=== PATIENT | female | born 1980 | race Hispanic/Latino ===

== ENCOUNTER 2024-01-21 21:21 | Emergency (ER) | payer SELFPAY, OTHER ==
--- OUTSIDE RECORDS SUMMARY | 2024-01-21 21:26 | XMS REPORT | Continuity of Care Document ---
Author Name Unknown Address [address] [facility]. [address] [place] [address] [facility] thconnect Address [address] [facility] [address] [place] [address] Care Team Providers Care Visual Basic .Net Developer Name Role Phone PCP, PATIENT DOES NOT HAVE A Primary Care Physic jarek Unavailable YOLA SALEH Attending Clinician Unavailab YOLA Little Attending Clinician Unavailab Yola Little DO Attending Clinician [phone] MICHELINE HERNÁNDEZ Attending Clinician Unavailable Nurse, [facility] Attending Clinician Un available Unknown, Attending Attending Clinician Unavailab Micheline Celeste PA-C Attending Clinician [phone] Mario Hernandez Attending Clinician + FRANCHESKA GO Attending Clinician UnavailYAMINI Regan Attending Clinician Unavailable YODIT TEAGUE Attending Clinician Unavailable Eleanor Francois Attending Clinician + SAMY SALDAÑA Attending Clinician Samy Deutsch Attending Clinician [phone] Unknown, Attending Attending Clinician UnavailMario Ibarra Attending Clinician + MARIO COLBY Attending Clinician Unavailable RADIOLOGY Attending Clinician Unavailable KEVIN CARDENAS III Attending Clinician Unavailbrenna Cardenas III, MD, James C Attending Clinician [phone] Doctor Unassigned, [place] Attending Clinician Nancy marcia Elidia Rios MA Attending Clinician Unavailbrenna e GC_SWJONATHANOM_Ran_G Attending Clinician Unavail able KEVIN COX Attending Clinician Coty Cox MD, Kevin Johnson Attending Clinician [phone] LETICIA SIEGEL Attending Clinician Unavailable BREONNA HUGGINS Attending Clinician Unavailab MELO Parkinson Attending Clinician Unavailable Eben Tong Attending Clinician Unavailab le 2, [facility] Attending Clinician Unavailable Franky DEAN, Valentina Piper Attending Clinician [phone] YAMINI CELESTE Admitting Clinician Unavailable JAYDEN_SWLYNNETTE_Ran_G Admitting Clinician Unavail able Eben Tong Admitting Clinician Unavailab le Payers Payer Name Policy Type Policy Number Effective Date Expirati on Date Source [facility] [id number] 2018 00:00:00 [facility] (MEDICAID REPLACEMENT - HMO) [id number] 2019 00:00:00 Problems Condition Name Condition Details Condition Category Status Onset Date Resolution Date Last Treatment Date Treating Clinician Comments Source Depressive disorder Depressive disorder Disease Active 2022-02 00:00: 00 [facility] spontaneou s labor with delivery, single or unspecifie d fetus spontaneou s labor with delivery, single or unspecifie d fetus Disease Active 11-07 00:00: 00 [facility] History of loop electrosur gical excision procedure (LEEP) History of loop electrosur gical excision procedure (LEEP) Disease Active 10-04 00:00: 00 [facility] History of abnormal cervical Papanicola ou smear History of abnormal cervical Papanicola ou smear Disease Active 10-04 00:00: 00 [facility] Anemia, antepartum , first trimester Anemia, antepartum , first trimester Disease Active 06-21 00:00: 00 [facility] Subchorion ic hemorrhage in first trimester Subchorion ic hemorrhage in first trimester Disease Active 06-21 00:00: 00 [facility] Anemia, antepartum , first trimester Anemia, antepartum , first trimester Disease Active 06-21 00:00: 00 [facility] Threatened Threatened Disease Active 06-19 00:00: 00 [facility] Allergies, Adverse Reactions, Alerts Allergy Name Allergy Type Status Severity Reaction(s) Onset Date Inactive Date Treating Clinician Comments Source MUSHROOM DRUG INGREDI Active Rash 06-20 00:00: 00 [facility] OLIVE EXTRACT DRUG INGREDI Active Rash 06-20 00:00: 00 [facility] ACETAMIN OPHEN-CO DEINE DRUG Active SOB 06-20 00:00: 00 [facility] Mushroom Drug Allergy Active Other - See comments 06-20 00:00: 00 Sore throat [facility] Magnolia Extract Drug Allergy Active Other - See comments 06-20 00:00: 00 Sore throat [facility] CODEINE DRUG INGREDI Active High SOB 10-03 00:00: 00 [facility] Codeine Propensi ty to adverse reaction s to drug Active Shortness of Breath 10-03 00:00: 00 [facility] hydrocod one DA Active SV SHORTNESS OF BREATH 10-01 00:00: 00 [facility] codeine DA Active SV 10-01 00:00: 00 [facility] hydrocod one DA Active SV 10-01 00:00: 00 [facility] codeine DA Active SV SHORTNESS OF BREATH 10-01 00:00: 00 [facility] Social History Social Habit Start Date Stop Date Quantity Comments Source [facility] Alcoholic beverage intake 2023-12-01 00:00:00 2023-12-01 00:00:00 Current non-drinker of alcohol (finding) [facility] History of Social function 2023-07-27 00:00:00 2023-07-27 00:00:00 [facility] Tobacco use and exposure 2023-07-27 00:00:00 2023-07-27 00:00:00 Smokeless tobacco non-user [facility] Alcohol intake 2023-01-02 00:00:00 2023-01-02 00:00:00 Current non-drinker of alcohol (finding) [facility] Exposure to SARS-CoV-2 (event) 2022-02-16 00:00:00 2022-02-26 12:00:00 Yes [facility] Sex assigned at 1980 00:00:00 1980 00:00:00 [facility] Smoking Status Start Date Stop Date Source Never smoked tobacco [facility] Medications Ordered Medication Name Filled Medication Name Start Date Stop Date Current Medication? Ordering Clinician Indication Dosage Frequency Signature (SIG) Comments Components Source metroNIDAZO LE 500 mg tablet 07-27 00:00: 00 Yes [id number] 500mg Take 1 tablet by mouth every 12 (twelve) hours. [facility] copper (PARAGARD T 380A) IUD 1 Intra Uterine Device 07-26 19:00: 00 07-26 18:03 :00 No [id number] 1{IUD} Univer s [facility] ipratropium -albuteroL (DUONEB) 0.5 mg-3 mg(2.5 mg base)/3 mL nebulizer solution 3 mL 2022-02 18:30: 00 01-02 17:49 :00 No [id number] 3mL [facility] albuterol 90 mcg/actuati on inhaler 2022-02 00:00: 00 02-02 05:59 :00 No [id number] 2{puff} Inhale 2 Puffs every 6 (six) hours as needed for Wheezing for up to 30 days. [facility] oseltamivir (TAMIFLU) 75 mg capsule 2022-02 00:00: 00 01-07 05:59 :00 No [id number] 75mg Take 1 capsule by mouth in the morning and 1 capsule in the evening. Do all this for 5 days. [facility] DULoxetine 30 mg capsule 2020-02 00:00: 00 Yes [id number] 30mg Take 1 capsule by mouth daily. [facility] hydrOXYzine 25 mg tablet 2020-02 00:00: 00 Yes [id number] 25mg Take 1 tablet by mouth every 8 (eight) hours as needed for Anxiety. [facility] SERTraline 50 mg tablet 11-18 00:00: 00 12-02 00:00 :00 No [id number] 50mg Take 1 tablet by mouth daily. [facility] Vital Signs Vital Name Observation Time Observation Value Comments S ource Systolic blood pressure 2023-12-01 19:00:00 122 mm[Hg] [facility] Diastolic blood pressure 2023-12-01 19:00:00 73 mm[Hg] [facility] Heart rate 2023-12-01 19:00:00 99 /min [facility] Body temperature 2023-12-01 19:00:00 36.78 Lula [facility] Respiratory rate 2023-12-01 19:00:00 16 /min [facility] Oxygen saturation in Arterial blood by Pulse oximetry 2023-12-01 19:00:00 99 /min [facility] Body height 2023-12-01 16:26:00 160 cm [facility] Body weight 2023-12-01 16:26:00 71.668 kg [facility] BMI 2023-12-01 16:26:00 27.99 kg/m2 [facility] Systolic blood pressure 2023-12-01 16:11:00 113 mm[Hg] [facility] Diastolic blood pressure 2023-12-01 16:11:00 80 mm[Hg] [facility] Heart rate 2023-12-01 16:11:00 99 /min [facility] Body temperature 2023-12-01 16:11:00 36.72 Lula [facility] Respiratory rate 2023-12-01 16:11:00 14 /min [facility] Body height 2023-12-01 16:11:00 160 cm [facility] Body weight 2023-12-01 16:11:00 71.986 kg [facility] BMI 2023-12-01 16:11:00 28.11 kg/m2 [facility] Oxygen saturation in Arterial blood by Pulse oximetry 2023-12-01 16:11:00 99 /min [facility] Systolic blood pressure 2023-09-14 18:49:00 106 mm[Hg] [facility] Diastolic blood pressure 2023-09-14 18:49:00 71 mm[Hg] [facility] Heart rate 2023-09-14 18:49:00 80 /min Unive [facility] Body temperature 2023-09-14 18:49:00 36.5 Lula [facility] Respiratory rate 2023-09-14 18:49:00 17 /min [facility] Body height 2023-09-14 18:49:00 162.6 cm [facility] Body weight 2023-09-14 18:49:00 75.206 kg [facility] BMI 2023-09-14 18:49:00 28.46 kg/m2 [facility] Systolic blood pressure 2023-07-27 17:32:00 108 mm[Hg] [facility] Diastolic blood pressure 2023-07-27 17:32:00 71 mm[Hg] [facility] Heart rate 2023-07-27 17:32:00 85 /min Unive [facility] Body temperature 2023-07-27 17:32:00 36.44 Lula [facility] Respiratory rate 2023-07-27 17:32:00 18 /min [facility] Body height 2023-07-27 17:32:00 162.6 cm [facility] Body weight 2023-07-27 17:32:00 74.021 kg [facility] BMI 2023-07-27 17:32:00 28.01 kg/m2 [facility] Systolic blood pressure 2023-07-23 12:36:00 133 mm[Hg] [facility] Diastolic blood pressure 2023-07-23 12:36:00 82 mm[Hg] [facility] Heart rate 2023-07-23 12:36:00 82 /min Unive [facility] Body temperature 2023-07-23 12:36:00 36.22 Lula [facility] Respiratory rate 2023-07-23 12:36:00 18 /min [facility] Body height 2023-07-23 12:36:00 162.6 cm [facility] Body weight 2023-07-23 12:36:00 73.664 kg [facility] BMI 2023-07-23 12:36:00 27.88 kg/m2 [facility] Systolic blood pressure 2023-01-02 17:19:00 129 mm[Hg] [facility] Diastolic blood pressure 2023-01-02 17:19:00 82 mm[Hg] [facility] Heart rate 2023-01-02 17:19:00 98 /min Unive [facility] Body temperature 2023-01-02 17:19:00 36.94 Lula [facility] Respiratory rate 2023-01-02 17:19:00 18 /min [facility] Body height 2023-01-02 17:19:00 162.6 cm [facility] Body weight 2023-01-02 17:19:00 73.029 kg [facility] BMI 2023-01-02 17:19:00 27.64 kg/m2 [facility] Oxygen saturation in Arterial blood by Pulse oximetry 2023-01-02 17:19:00 99 /min [facility] Systolic blood pressure 2023-01-01 15:38:00 122 mm[Hg] [facility] Diastolic blood pressure 2023-01-01 15:38:00 85 mm[Hg] [facility] Heart rate 2023-01-01 15:38:00 93 /min Unive [facility] Body temperature 2023-01-01 15:38:00 36.78 Lula [facility] Respiratory rate 2023-01-01 15:38:00 19 /min [facility] Body height 2023-01-01 15:38:00 170.2 cm [facility] Body weight 2023-01-01 15:38:00 73.573 kg [facility] BMI 2023-01-01 15:38:00 25.40 kg/m2 [facility] Oxygen saturation in Arterial blood by Pulse oximetry 2023-01-01 15:38:00 98 /min [facility] Systolic blood pressure 2022-02-26 18:06:00 126 mm[Hg] [facility] Diastolic blood pressure 2022-02-26 18:06:00 80 mm[Hg] [facility] Heart rate 2022-02-26 18:06:00 102 /min Unive [facility] Body temperature 2022-02-26 18:06:00 37.22 Lula [facility] Respiratory rate 2022-02-26 18:06:00 16 /min [facility] Body height 2022-02-26 18:06:00 160 cm [facility] Body weight 2022-02-26 18:06:00 74.617 kg [facility] BMI 2022-02-26 18:06:00 29.14 kg/m2 [facility] Oxygen saturation in Arterial blood by Pulse oximetry 2022-02-26 18:06:00 100 /min [facility] Body height 2020-12-02 13:23:00 162.6 cm [facility] Body weight 2020-12-02 13:23:00 67.132 kg [facility] BMI 2020-12-02 13:23:00 25.40 kg/m2 [facility] Systolic blood pressure 2020-12-02 13:23:00 127 mm[Hg] [facility] Diastolic blood pressure 2020-12-02 13:23:00 85 mm[Hg] [facility] Heart rate 2020-12-02 13:23:00 96 /min [facility] Procedures Procedure Date / Time Performed Performing Clinician Source MAGNESIUM 2023-12-01 18:03:00 [facility] 2023-12-01 18:03:00 [facility] THYROID STIMULATING HORMONE 2023-12-01 18:03:00 Yola Saleh [facility] COMP. METABOLIC PANEL ([id number]) 2023-12-01 18:03:00 Yola Saleh [facility] CBC WITH DIFF 2023-12-01 18:03:00 [facility] 2023-12-01 18:03:00 Yola Sale[facility] POCT TEST 2023-07-27 17:33:00 Yamini Celeste [facility] POCT MOLECULAR FLU 2023-01-01 15:40:00 Unknown, Attend parvin [facility] POCT MOLECULAR STREP 2023-01-01 15:37:00 Unknown, Atte froylan [facility] POCT SARS-COV-2 ANTIGEN (BINAX NOW) 2023-01-01 00:00:00 Mario Colby [facility] POCT SARS-COV-2 ANTIGEN (BINAX NOW) 2022-02-26 18:02:00 Kevin Cardenas [facility] ASSIGNMENT OF BENEFITS 2022-02-26 18:00:52 Docto r Unassigned, [place] [facility] [id number] 2019-08-06 00:00:00 [facility] [id number] 2019-08-05 00:00:00 [facility] Encounters Start Date/Time End Date/Time Encounter Type Admission Type Attending [facility] Care Facility Care Department Encounter ID Source 2023-12-01 11:31:00 2023-12-01 14:26:00 Emergency X YOLA SALEH [facility] ERT [id number] [facility] 2023-12-01 11:31:00 2023-12-01 14:26:00 Emergency Yola Saleh [facility] 1.2.840.114 350.1.13.10 4.2.7.2.686 [id number] [facility] 2023-12-01 10:45:00 2023-12-01 11:09:14 Outpatient R MICHELINE HERNÁNDEZ [facility] [id number] [facility] 2023-12-01 10:45:00 2023-12-01 11:09:14 Nurse Visit Nurse, [facility] Unknown, Attending Micheline Hernández Nurse, [facility] 1..840.114 350.1.13.10 4.2.7.2.686 [id number] [facility] 2023-12-01 00:00:00 2023-12-01 11:09:03 Letter (Out) HarritekavinMario [facility] 1..840.114 350.1.13.10 4.2.7.2.686 [id number] [facility] 2023-09-14 13:15:00 2023-09-14 14:05:13 Outpatient R YAMINI CELESTE 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 [id number] [facility] 2023-09-07 14:30:00 2023-09-07 14:30:00 Outpatient R YAMINI CELESTE [facility] [id number] [facility] 2023-08-24 00:00:00 2023-08-24 16:55:45 Telephone Yamini Celeste [facility] [employer] SUB[employer] REPAIRER [facility] 1..840.114 350.1.13.10 4.2.7.2.686 [id number] [facility] 2023-08-19 13:30:00 2023-08-19 14:24:19 Outpatient R YAMINI CELESTE [facility] [id number] [facility] 2023-08-18 00:00:00 2023-08-19 06:46:30 Telephone Yamini Celeste [facility] [employer] SUB[employer] REPAIRER [facility] 1.2.840.114 350.1.13.10 4.2.7.2.686 [id number] [facility] 2023-08-18 00:00:00 2023-08-18 15:29:42 Telephone Yamini Celeste [facility] [employer] SUB[employer] REPAIRER [facility] 1.2.840.114 350.1.13.10 4.2.7.2.686 [id number] [facility] 2023-08-09 07:15:57 2023-08-09 23:59:00 Outpatient R YAMINI CELESTE 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 [id number] [facility] 2023-07-27 12:45:00 2023-07-27 13:06:22 Office Visit Yamini Celeste [facility] [employer] SUB[employer] REPAIRER [facility] 1.2840.114 350.1.13.10 4.2.7.2.686 [id number] [facility] 2023-07-23 07:15:00 2023-07-23 08:19:52 Outpatient R YAMINI CELESTE [facility] [id number] [facility] 2023-07-23 07:15:00 2023-07-23 08:19:52 Office Visit Yamini Celeste [facility] [employer] SUB[employer] REPAIRER [facility] 1.840.114 350.1.13.10 4.2.7.2.686 [id number] [facility] 2023-07-21 00:00:00 2023-07-21 13:43:10 Telephone Eleanor Larson [facility] [employer] REPAIRER [facility] 1.84.114 350.1.13.10 4.2.7.2.686 [id number] [facility] 2023-01-02 10:40:00 2023-01-02 11:45:33 Outpatient R SAMY SALDAÑA [facility] [id number] [facility] 2023-01-02 10:40:00 2023-01-02 11:45:33 Urgent Care Samy Saldaña Unknown, Attending [facility] 1.84.114 350.1.13.10 4.2.7.2.686 [id number] [facility] 2023-01-01 09:20:00 2023-01-01 09:40:00 Urgent Care Mario Colby Unknown, Attending [facility] 1.84.114 350.1.13.10 4.2.7.2.686 [id number] [facility] 2023-01-01 09:20:00 2023-01-01 09:20:00 Outpatient R MARIO COLBY [facility] [id number] [facility] 2022-05-28 09:26:47 2022-05-28 09:26:47 Outpatient [facility] [id number] Eric Olvera 2022-02-26 12:00:00 2022-02-26 12:29:44 Outpatient R KEVIN CARDENAS III [facility] [id number] [facility] 2022-02-26 12:00:00 2022-02-26 12:29:44 Urgent Care Kevin Cardenas Unknown, Attending [facility] 1.840.114 350.1.13.10 4.2.7.2.686 [id number] [facility] 2022-02-26 00:00:00 2022-02-26 00:00:00 Orders Only Doctor Unassigned, [place] [facility] 1.2840.114 350.1.13.10 4.2.7.2.686 [id number] [facility] 2022-02-26 00:00:00 2022-02-26 00:00:00 Letter (Out) Kevin Cardenas [facility] 1.840.114 350.1.13.10 4.2.7.2.686 [id number] [facility] 2021-06-23 00:00:00 2021-06-23 00:00:00 Case Management Elidia Rios 1.84.114 350.1.13.10 4.2.7.2.686 [id number] [facility] 2021-02-28 00:00:00 2021-02-28 00:00:00 Outpatient JAYDEN_ALEX_ Ran_G PRIV PRIV [id number] [facility] 2020-12-16 09:00:00 2020-12-16 09:00:00 Outpatient R KENNY KEVIN [facility] [id number] [facility] 2020-12-16 08:15:00 2020-12-16 08:15:00 Outpatient R KENNY KEVIN [facility] [id number] [facility] 2020-12-02 08:18:16 2020-12-02 08:33:16 Office Visit Kevin Cox [facility] 1.2.840.114 350.1.13.10 4.2.7.2.686 [id number] [facility] 2020-12-02 08:30:00 2020-12-02 08:30:00 Outpatient R BRIGIDLEATHA KEVIN [facility] [id number] [facility] 2020-11-28 00:00:00 2020-11-28 00:00:00 Telephone Kevin Cox [facility] 1.2.840.114 350.1.13.10 4.2.7.2.686 [id number] [facility] 2020-11-18 09:30:00 2020-11-18 09:30:00 Outpatient Saul RAINEYLEATHA KEVIN [facility] [id number] [facility] 2020-11-18 08:18:30 2020-11-18 08:48:30 Office Visit Kevin Cox [facility] 1.2.840.114 350.1.13.10 4.2.7.2.686 [id number] [facility] 2020-09-13 17:20:00 2020-09-13 17:20:00 Outpatient LETICIA ROBLES [facility] [id number] [facility] 2020-06-29 13:00:00 2020-06-29 13:00:00 Outpatient BREONNA LOPEZ [facility] [id number] [facility] 2020-06-29 12:45:00 2020-06-29 12:45:00 Outpatient BREONNA LOPEZ [facility] [id number] [facility] 2020-06-26 11:00:00 2020-06-26 11:00:00 Outpatient MELO JEFFERS [facility] [id number] [facility] 2019-05-25 16:21:00 2019-08-13 07:44:38 Inpatient Eben Tong [facility] [id number] [facility] 2019-06-01 16:22:00 2019-06-01 16:22:00 Outpatient Eben Tong [facility] LABO [id number] 75 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, [facility] [id number] 350.1.13.10 4.2.7.2.686 [id number] 2018-11-07 13:55:10 2018-11-07 14:10:10 Routine Visit Valentina Wilkins [facility] 1.2.840.114 350.1.13.10 4.2.7.2.686 [id number] 2018-11-07 00:00:00 2018-11-07 00:00:00 Orders Only Doctor Unassigned, [place] [facility] 1.2.840.114 350.1.13.10 4.2.7.2.686 [id number] 2018-11-01 00:00:00 2018-11-01 00:00:00 Telephone Valentina Wilkins [facility] 1.2.840.114 350.1.13.10 4.2.7.2.686 [id number] 2009-12-06 00:00:00 2009-12-06 11:46:[address] [facility] [id number] 0 [facility] Results Test Description Test Time Test Comments Results Result Co mments Source [facility] [id number] 17:34:00* Test Item Value Reference Range Interpretation Comme nts POCT PREG (test code = 1605) Negative On board controls acceptable with C Line (test code = 3574) Yes POCT PREG LOT # (test code = 3575) POCT PREG TEST DATE ( test code = 3576) [facility] MOLECULAR [id number] 15:45:32* Test Item Value Reference Range Interpretation Comme nts POCT Molecular Strep (test c ode = 46251-7) Negative Negative Lab Interpretation (test cod e = 87172-3) Normal [facility] SARS-COV-2 ANTIGEN (BINAX NOW)2023-01-01 15:45:00* Test Item Value Reference Range Interpretation Comme nts POCT SARS-COV-2 ANTIGEN (jonh t code = 37822-9) Not Detected Not Detected On board controls acceptable with C Line (test code = 3574) Yes Lab Interpretation (test cod e = 51333-9) Normal [facility] MOLECULAR [id number] 15:44:10* Test Item Value Reference Range Interpretation Comme nts POCT Molecular FluB (test co de = 55435-1) Positive Negative A Lab Interpretation (test cod e = 07890-5) Abnormal [facility] SARS-COV-2 ANTIGEN (BINAX NOW)2022-02-26 18:17:00* Test Item Value Reference Range Interpretation Comme nts POCT SARS-COV-2 ANTIGEN (jonh t code = 02886-6) Positive Not Detected A On board controls acceptable with C Line (test code = 3574) Yes Lab Interpretation (test cod e = 66599-6) [id number] 07:16:00* Test Item Value Reference Range Interpretation Comme nts HEMOGLOBIN (test code = HGB) 9.7 g/dL 10.7-13.9 L HEMATOCRIT (test code = HCT) 31.1 % 32.1-42.1 L AG HEPATITIS B [id number] 21:46:00* Test Item Value Reference Range Interpretation Comme nts AG HEPATITIS B SURFACE (test code = HBSAG) NONREACTIVE NONREACTIVE IS CONSENT FORM SIGNED FOR HIV TESTING? YAB HEPATITIS C [id number] 21:46:00* Test Item Value Reference Range Interpretation Comme nts AB HEPATITIS C (test code = HCVAB) NONREACTIVE NONREACTIVE SIGNAL TO CUTOFF (test code = CUTOFF) <0.02 <0.80 N IS CONSENT FORM SIGNED FOR HIV TESTING? YAB [id number] 21:46:00* Test Item Value Reference Range Interpretation Comme nts AB TREPONEMA (test code = TREPAB) NONREACTIVE NONREACTIVE IS CONSENT FORM SIGNED FOR HIV TESTING? YAB HIV 1 21:46:00* Test Item Value Reference Range Interpretation Comme nts AB HIV 1 2 (test code = LGY41SF) NONREACTIVE NONREACTIVE Done by Siemens [employer] 4th Gen HIV Ag/Ab Combo Screen IS CONSENT FORM SIGNED FOR HIV TESTING? YAG HEPATITIS B [id number] 21:19:00* Test Item Value Reference Range Interpretation Comme nts AG HEPATITIS B SURFACE (test code = HBSAG) NONREACTIVE NONREACTIVE IS CONSENT FORM SIGNED FOR HIV TESTING? YAB HEPATITIS C [id number] 21:19:00* Test Item Value Reference Range Interpretation Comme nts AB HEPATITIS C (test code = HCVAB) NONREACTIVE SIGNAL TO CUTOFF (test code = CUTOFF) <0.80 IS CONSENT FORM SIGNED FOR HIV TESTING? YAB [id number] 21:19:00* Test Item Value Reference Range Interpretation Comme nts AB TREPONEMA (test code = TREPAB) NONREACTIVE NONREACTIVE IS CONSENT FORM SIGNED FOR HIV TESTING? YAB HIV 1 21:19:00* Test Item Value Reference Range Interpretation Comme nts AB HIV 1 2 (test code = QAL70TP) NONREACTIVE IS CONSENT FORM SIGNED FOR HIV TESTING? YCBC W/AUTO [id number] 20:34:00* Test Item Value Reference Range Interpretation Comme nts WHITE BLOOD CELL (test code = WBC) 10.9 K/mm3 6.6-12.1 N RED BLOOD CELL (test code = RBC) 3.79 M/mm3 3.45-5.01 N HEMOGLOBIN (test code = HGB) 10.8 g/dL 10.7-13.9 N HEMATOCRIT (test code = HCT) 32.8 % 32.1-42.1 N MEAN CELL VOLUME (test code = MCV) 87 fL 84.1-94.8 N MEAN CELL HGB (test code = MCH) 28.5 pg 27-35 N MEAN CELL HGB CONCETRATION ( test code = MCHC) 32.9 gm/dL 32.2-34.1 N RED CELL DISTRIBUTION WIDTH (test code = RDW) 18.0 % 12.4-16.5 H PLATELET COUNT (test code = PLT) 226 K/mm3 133-385 N MEAN PLATELET VOLUME (test c ode = MPV) 11.3 fl 9.1-12.7 N NEUTROPHIL % (test code = NT%) 73.8 % 56.5-79.4 N LYMPHOCYTE % (test code = LY%) 13.8 % 14.3-34.3 L MONOCYTE % (test code = MO%) 8.6 % 5.1-10.4 N EOSINOPHIL % (test code = EO%) 3.3 % 0.1-3.0 H BASOPHIL % (test code = BA%) 0.1 % 0.1-1.0 N NEUTROPHIL # (test code = NT#) 8.0 K/mm3 LYMPHOCYTE # (test code = LY#) 1.5 K/mm3 MONOCYTE # (test code = MO#) 0.9 K/mm3 EOSINOPHIL # (test code = EO#) 0.36 K/mm3 BASOPHIL # (test code = BA#) 0.0 K/mm3 RBC MORPHOLOGY REQUIRED (jonh t code = RBCM) NORMAL NORMAL PLATELET MORPHOLOGY REQUIRED (test code = PLTMR) NORMAL NORMAL - US [facility] [id number] 17:02:00Patient Name: GRADY EDWARD Unit No: [id number] EXAMS: C[place]: [id number] [address] [facility] [address], [place] [address] OBSTETRICAL ULTRASOUND REPORT Pat. Name: GRADY EDWARD. No: [id number] Study Date: 07/24/2019 3:24pm , Age: 08 1980, 38 Pregnancies: 4, Para 1021 LMP:12/14/2018 GA by LMP: 31w5d GA by 1st: 31w5d GA by US: 32w4d GA Selected: 31w5d (LMP) AMY: 09/20/2019 Referring MD: EBEN TONG Attorney Lawyer: Sulema Saleh RDMS, RVT CPT4: USPREGFU Admitting MD: EBEN TONG Hist/Ind: SCAN 2 F/U GROWTH POSITION MEASUREMENTS AGE GROWTH EVALUATION Measurement GA Range Srce %for GA Ratios ----- ---- ------- BPD 8.1cm 32w6d (96s7t-63f7z) Hadl BPD 68% FL/BPD 0.79 (0.71 - 0.87) HC 29.5 cm 32w2d (26u4e-80c0h) Hadl HC 58% FL/AC 0.22 (0.20 - 0.24) APD 9.1 cm APD HC/AC 1.01 (0.96 - 1.15) TAD 9.5 cm TAD CI 0.82 (0.70 - 0.86) AC 29.2 cm 33w2d (30w2d- 36w2d) Hadl AC 74% FL 6.4 cm 32w6d (10z4w-78a2g) Hadl FL 67% HL 5.5 cm 32w0d (69v6j-61b8b) Aman GOODSON 54% GA for sonogram 32w4d (13i7x-22n7q) Weight Estimate: based on (BPD,HC,AC,FL) Hadlock Weight: 2107 gm (9610-7764) Hadlo : 4lbs, 10oz Normal: 1756 gm (2900-8767)Brenn Wt% 71% for 31.7 wks Heart Rate: 132 bpm Amniotic Fluid Index: 12.3cm (08.7-24.1) Q1: 2.9cm Q2: 0.0cm Q3: 3.9cm Q4: 5.5cm CLINICAL SUMMARY Type of Gestation: Carreon Intrauterine in vertex presentation. size is appropriate for gestational age. growth: Consistent with normal growth motion and organs seen: somatic activity observed body and limb movements seen Regularcardiac rhythm observed Placental location: Posterior [facility] NAME: GRADY EDWARD Radiology Department PHYS: Eben Cullen MD [address] : 1980 AGE: 38 SEX: F [place], [place] [address] LOC: Diann5078 Pam PHONE #: [phone] EXAM DATE: 07/24/2019 STATUS: ADM IN FAX #: [phone] RAD NO: Page 1 Signed Report (CONTINUED) Patient Name: GRADY EDWARD Unit No: [id number] EXAMS: CPT CODE: [id number] [place] [address] (Continued) Placental maturity : Grade 2 There is no evidence of placenta previa. Amniotic fluid volume is normal. Uterus and adnexa: CERCLAGE SEEN. CERVIX IS OPEN [id number] AP DIMENSION Thank you for allowing us to participate in the care of this patient. Loida Davalos M.D. Electronic Vkkhofmer89/01/2020 05:02pm at 1702 Reportedand signed by: Cat Davalos MD CC: Eben Tong Technologist: Sulema Saleh RDMS, RVT Probe: Trnscrbd D/ (1701) ChikisCER Orig Print D/T: S: 07/24/2019 (1701) [facility] NAME: GRADY EDWARD Radiology Department PHYS: Eben Cullen MD [address]OB: 1980 AGE: 38 SEX: F [place] [address] LOC: F.5078 A PHONE #: [phone] EXAM DATE: 07/24/2019 STATUS: ADM IN FAX #: [phone] RAD NO: Page 2 Signed Report Bia ent Name: VAMSHI EDWARDFA Unit No: [id number] EXAMS: CPT CODE: [id number] [place] [address] (Continued) [facility] NAME: VAMSHI EDWARDFA Radiology Department PHYS: Eben Cullen MD [address] : 1980 AGE: 38 SEX: F [place] [address] : F.5078 A PHONE #: [phone] EXAM DATE: 07/24/2019 STATUS: ADM IN FAX #: [phone] RAD NO: Page 3 Signed Report- US FLW [id number] 14:57:00Patient Name: GRADY EDWARD Unit No: [id number] EXAMS: CPT CODE: [id number] [place] [address] [facility] [address] [place], [place] [address] OBSTETRICAL ULTRASOUND REPORT Pat. Name: GRADY EDWARD Pat. No: [id number] Study Date: 06/21/2019 2:09pm , Age: 08 1980, 38 Pregnancies: 4, Para 1021 LMP: 12/14/2018 GA by LMP: 27w0d GA by US: 27w4d GA Selected: 27w0d (From Known E) AMY: 09/20/2019 Referring MD: EBEN TONG Attorney Lawyer: Berta Mendieta RDMS CPT4: USPREGFU Admitting MD: EBEN TONG Hist/Ind: SCAN#1 F/U GROWTH, SHORT CERVIX MEASUREMENTS AGE GROWTH EVALUATION Measurement GA Range Srce %forGA Ratios ----- ---- ------- BPD 6.8 cm 27w4d (09f1m-02m1m) Hadl BPD 67% FL/BPD 0.78 (0.71 - 0.87) HC 25.9 cm 27w6d (70u1v-19g1u) Hadl HC 68% FL/AC 0.23 (0.20 - 0.24) APD 7.3 cm APD HC/AC 1.12 (1.00 - 1.18) TAD 7.4 cm TAD CI 0.75 (0.70 - 0.86) AC23.1 cm 27w2d (25w1d- 29w4d) Hadl AC 57% FL 5.3 cm 27w6d (01e2l-88a5r) Hadl FL 67% HL 4.7 cm 27w5d (2 4e9y-26k8p) Aman HL 62% GA for sonogram 27w4d (99d7w-56s9y) Weight Estimate: based on (BPD,HC,AC,FL) Hadlock Weight: 1121 gm (957-1285) Hadloc : 2lbs, 7oz Normal: 990 gm (660-1470) Kamron Wt%61% for 27.0 wks Heart Rate: 145 bpm Amniotic Fluid Index: 17.7cm (09.5-22.6) Q1: 5.4cm Q2: 4.5cm Q3: 2.8cm Q4: 5.0cm MATERNAL ANATOMY Ovaries LxHxW (cm) Right 3.8 x 3.5 x 3.1 Vol: 21.6cc Left 2.7 x 1.5 x 1.5 Vol: 3.2cc CLINICAL SUMMARY Type of Gestation: Carreon Intrauterine in transverse head on maternal left presentation. size is appropriate for gestational age. growth: [facility] NAME: EDWARDVAMSHIGRADY Radiology Department PHYS: Eben Cullen MD [address] : 1980 AGE: 38 SEX: F [place], [place] [address] LOC: F.3204 A PHONE #: [phone] EXAM DATE: 06/21/2019 STATUS: ADM IN FAX #: [phone] RAD NO: Page 1 Signed Report (CONTINUED) Patient Name: GRADY EDWARD Unit No: [id number] EXAMS: CPT CODE: [id number] [place] [address] (Continued) Consistent with normal growth motion and organs seen: somatic activity observed body and limb movements seen Regular cardiac rhythm observed Placental location: Posterior Placental maturity : Grade 2 There is no evidence of placenta previa. Amniotic fluid volume is normal. Uterus and adnexa: ?? cerclage stitches at external os/ upper vagina Thank you for allowing us to participate in the care of this patient. Dr Tong notified by text 2:53pm 06/21/2019 Loida Davalos M.D. Electronic Signature 06/21/2019 02:57pm at 1457 Reported and signed by: Cat Davalos MD CC: Eben Tong Technologist: Berta Mendieta RDMS Probe: Trnscrbd D/ (1457) t.SDR.CER Orig Print D/T: S: 06/21/2019 (1457) [facility] NAME: VAMSHI EDWARDFA Radiology Department PHYS: Eben Cullen MD [address] : 1980 AGE: 38 SEX: F [place], [place] [address] LOC: F.3204 A PHONE #: [phone] EXAM DATE: 06/21/2019STATUS: ADM IN FAX #: [phone] RAD NO: Page 2 Signed Report Patient Name: GRADY EDWARD Unit No:[id number] EXAMS: CPT CODE: [id number] [place] [address] (Continued) [facility] NAME: GRADY EDWARD Radiology Department PHYS: Eben Cullen MD [address] : 1980 AGE: 38 SEX: F [place], [place] [address] LOC: Orlando Orozco PHONE #: [phone] EXAM DATE: 06/21/2019 STATUS: ADM IN FAX #: [phone] RAD NO: Page 3 Signed ReportGLUCOSE [id number] 13:55:00* Test Item Value Reference Range Interpretation Comme nts GLUCOSE 3HR (test code = GLU3) 123 mg/dL 65-110 H 3HR GTT GLU3 GLU3HR from 415:CF:I07468J.GLUCOSE [id number] 12:11:00* Test Item Value Reference Range Interpretation Comme nts GLUCOSE 2HR (test code = GLU2) 154 mg/dL 70-140 H 3HR GTT GLU2 GLU2HR from 415:CF:Q32970V.GLUCOSE 1HR POST [id number] 11:09:00* Test Item Value Reference Range Interpretation Comme nts GLUCOSE 1HR POST PRANDIAL (t est code = GLU1) 176 MG/DL 100-200 N 3HR GTT GLU1 GLU1HR from 415:CF:J41102Q.GLUCOSE [id number] 08:45:00* Test Item Value Reference Range Interpretation Comme nts GLUCOSE FASTING (test code = GLUF) 90 mg/dL 65-110 N 3HR GTT GLUF GLUFAST from 6:CF:J00512C.GESTATION SCREEN [id number] 10:53:00* Test Item Value Reference Range Interpretation Comme nts GESTATION SCREEN GLUCOSE (te st code = GLU1S) 155 MG/DL <150 GLU GEST SCRN 1 HR GLU GLU1S from 0414:CF:P23338O.GLUCOSE [id number] 09:37:00* Test Item Value Reference Range Interpretation Comme nts GLUCOSE FASTING (test code = GLUF) 85 mg/dL 65-110 N GLU GEST SCRN GLUFAST GLUFAST from 4:CF:K38477Q.Novel Coronavirus 2019 2019-06-02 18:54:00* Test Item Value Reference Range Interpretation Comme nts Novel Coronavirus 2019 Inhouse (test code = [id number]) Negative Negative Positive resul ts are indicative of the presence psZWHI-ZdO-5 RNA, clinical correlation with patient historyand other diagnostic information is necessary to determinepatient infection status. Positive results do not rule outbacterial infection or co-infection with other viruses. Negative results do not preclude SARS-CoV-2 infection andshould not be used as the sole basis for patient managementdecisions. Negative results must be combined with otherclinical observations, patient history, and epidemiologicalinformation . Detection of SARS-CoV-2 RNA may be affected bysample collection methods, storage conditions, and/or stageof infection. Viral RNA mutations, vaccinations, antiviraltherapeutics, antibiotics, chemotherapeutic orimmunosuppressant drugs have not been evaluated for effectson detection. Results are for the identification of SARS-CoV-2 RNA usingthe [employer] System under the FDA Emergency UseAuthorization. The testing is performed by personneltrained in the procedures for the [employer] moleculardiagnostic SARS-CoV-2 assay in vitro. Testing Criteria: OtherOther: Antepartum patient, Novel Coronavirus 2019 2019-06-02 18:53:00* Test Item Value Reference Range Interpretation Comme [facility] Novel Coronavirus 2019 Inhouse (test code = KQFPA33RI) Negative Negative Positive resul ts are indicative of the presence vyWKTX-KzU-1 RNA, clinical correlation with patient historyand other diagnostic information is necessary to determinepatient infection status. Positive results do not rule outbacterial infection or co-infection with other viruses. Negative results do not preclude SARS-CoV-2 infection andshould not be used as the sole basis for patient managementdecisions. Negative results must be combined with otherclinical observations, patient history, and epidemiologicalinformation . Detection of SARS-CoV-2 RNA may be affected bysample collection methods, storage conditions, and/or stageof infection. Viral RNA mutations, vaccinations, antiviraltherapeutics, antibiotics, chemotherapeutic orimmunosuppressant drugs have not been evaluated for effectson detection. Results are for the identification of SARS-CoV-2 RNA usingthe [employer] M2000 System under the FDA Emergency UseAuthorization. The testing is performed by personneltrained in the procedures for the [employer]ucker [employer]000 moleculardiagnostic SARS-CoV-2 assay in vitro. Testing Criteria: OtherOther: Antepartum patient, AG HEPATITIS B SURFACE 2019-05-25 18:49:00* Test Item Value Reference Range Interpretation Comme nts AG HEPATITIS B SURFACE (test code = HBSAG) NONREACTIVE NONREACTIVE IS CONSENT FORM SIGNED FOR HIV TESTING? YAB HEPATITIS C [id number] 18:49:00* Test Item Value Reference Range Interpretation Comme nts AB HEPATITIS C (test code = HCVAB) NONREACTIVE NONREACTIVE SIGNAL TO CUTOFF (test code = CUTOFF) 0.20 <0.80 N IS CONSENT FORM SIGNED FOR HIV TESTING? YAB [id number] 18:49:00* Test Item Value Reference Range Interpretation Comme nts AB TREPONEMA (test code = TREPAB) NONREACTIVE NONREACTIVE IS CONSENT FORM SIGNED FOR HIV TESTING? YAB HIV 1 18:49:00* Test Item Value Reference Range Interpretation Comme nts AB HIV 1 2 (test code = UWT78MD) NONREACTIVE NONREACTIVE Done by Siemens [employer] 4th Gen HIV Ag/Ab Combo Screen IS CONSENT FORM SIGNED FOR HIV TESTING? YAG HEPATITIS B [id number] 18:38:00* Test Item Value Reference Range Interpretation Comme nts AG HEPATITIS B SURFACE (test code = HBSAG) NONREACTIVE NONREACTIVE IS CONSENT FORM SIGNED FOR HIV TESTING? YAB HEPATITIS C [id number] 18:38:00* Test Item Value Reference Range Interpretation Comme nts AB HEPATITIS C (test code = HCVAB) NONREACTIVE SIGNAL TO CUTOFF (test code = CUTOFF) <0.80 IS CONSENT FORM SIGNED FOR HIV TESTING? YAB [id number] 18:38:00* Test Item Value Reference Range Interpretation Comme nts AB TREPONEMA (test code = TREPAB) NONREACTIVE NONREACTIVE IS CONSENT FORM SIGNED FOR HIV TESTING? YAB HIV 1 18:38:00* Test Item Value Reference Range Interpretation Comme nts AB HIV 1 2 (test code = XWA00QN) NONREACTIVE IS CONSENT FORM SIGNED FOR HIV TESTING? YCBC W/AUTO [id number] 17:37:00* Test Item Value Reference Range Interpretation Comme nts WHITE BLOOD CELL (test code = WBC) 10.6 K/mm3 6.6-12.1 N RED BLOOD CELL (test code = RBC) 3.48 M/mm3 3.45-5.01 N HEMOGLOBIN (test code = HGB) 9.5 g/dL 10.7-13.9 L HEMATOCRIT (test code = HCT) 29.4 % 32.1-42.1 L MEAN CELL VOLUME (test code = MCV) 85 fL 84.1-94.8 N MEAN CELL HGB (test code = MCH) 27.3 pg 27-35 N MEAN CELL HGB CONCETRATION ( test code = MCHC) 32.3 gm/dL 32.2-34.1 N RED CELL DISTRIBUTION WIDTH (test code = RDW) 13.9 % 12.4-16.5 N PLATELET COUNT (test code = PLT) 253 K/mm3 133-385 N MEAN PLATELET VOLUME (test c ode = MPV) 11.1 fl 9.1-12.7 N NEUTROPHIL % (test code = NT%) 83.7 % 56.5-79.4 H LYMPHOCYTE % (test code = LY%) 10.5 % 14.3-34.3 L MONOCYTE % (test code = MO%) 4.9 % 5.1-10.4 L EOSINOPHIL % (test code = EO%) 0.3 % 0.1-3.0 N BASOPHIL % (test code = BA%) 0.1 % 0.1-1.0 N NEUTROPHIL # (test code = NT#) 8.9 K/mm3 LYMPHOCYTE # (test code = LY#) 1.1 K/mm3 MONOCYTE # (test code = MO#) 0.5 K/mm3 EOSINOPHIL # (test code = EO#) 0.03 K/mm3 BASOPHIL # (test code = BA#) 0.0 K/mm3 RBC MORPHOLOGY REQUIRED (jonh t code = RBCM) NORMAL NORMAL PLATELET MORPHOLOGY REQUIRED (test code = PLTMR) NORMAL NORMAL Notes Date/Time Note Provider Source 2023-12-01 14:26:05 Patient given printed and verbal discharge instructions regarding palpitations and numbness. Pt verbalized understanding of instructions, pt awake alert oriented, resp reg unlabored, skin w/d, color appropriate for race, moves all ext well,pt encouraged to follow up with pcp. Advised to seek medical attention for new/prolonged/worsening of symptoms. No adverse reaction to meds given in ER noted upon discharge Awake, alert oriented, resp reg unlabored, skin w/d, pt leaving amb with steady gait, in no apparent distress. Geo Zavaleta RN [facility] 2023-12-01 11:22:59 Patient states when she woke up in bed this morning, she felt a whole left sided numbness. Patient states she felt right sided arm numbness before she woke this morning at 2am. CASTILLO started on the way over her, states its her anxiety. Hx of anxiety, started taking Tirzepatide 2 weeks ago No weakness or numbness assessed in triage Pili Soria RN [facility] 2023-12-01 11:20:00 [facility] Emergency Department Note Patient Name: Grady Edward Date of : 1980 43 year old female Treatment Room: [facility] ED [facility] Primary Care Physician: Kevin Cox Patient Escorted by: Self [9] Mode of Arrival: Personal means [1] EMS Treatment Prior to ED Arrival: Travel and Exposure Screening: Symptoms Does patient have any of these symptoms?: (not recorded) Exposure Screening Has patient had contact with someone with a communicable disease in the last month?: (not recorded) Diseases exposed to:: (not recorded) Is Patient ?: (not recorded) Exposure Date: (not recorded) Chief Complaint: Chief Complaint Patient presents with Other Bilateral intermittent numbness History of Present Illness: The patient presents from home for evaluation for left-sided numbness including her face, arm and leg that started when she woke up around 6:00 in the morning. She reports it lasted several seconds and then went away. She also reports she woke up around 2:00 in the morning and had a right arm numbness that resolved after several seconds. She initially struggled off the symptoms but as the day has progressed she has become more concerned about them. She also reports intermittent palpitations. No chest pain or pressure. No shortness of breath. No cough or congestion. No nausea, vomiting or diarrhea. She has taken the semaglutide injection twice with her last injection this past Wednesday. It is Wednesday today. She takes supplements at home but no other prescription medications. Here for evaluation. Past Medical History/Immunizations: Past Medical History: Diagnosis Date Anemia Anxiety Breast disorder 10/2016 Leakage / Mammogram / COVID-19 09/03/2020 Depression PP depression / never been in counseling / no medication Pap smear abnormality of cervix Urinary incontinence stress incont Allergies: Allergies Allergen Reactions Codeine Shortness of Breath Mushroom Rash and Other - See comments Sore throat Magnolia Extract Rash and Other - See comments Sore throat Past Social History: Tobacco Use Never smoked or used smokeless tobacco. Alcohol Use No. Drug Use No. Sexual Activity Sexually active; Partners: Male; Control/Protection: None. Comments: LSI: 07/19/2023 Past Surgical History: Past Surgical History: Procedure Laterality Date COLPOSCOPY,CERVIX W/ADJ VAG,W/LOOP BX 2006 paps since have been WNL CONIZATION CERVIX,LOOP ELECTRD TONSILLECTOMY as a child / unsure about Adenoids Review of Systems: Review of Systems Constitutional: Negative for chills and fever. Respiratory: Negative for cough and shortness of breath. Cardiovascular: Positive for palpitations. Negative for chest pain. Gastrointestinal: Negative for abdominal pain, nausea and vomiting. Musculoskeletal: Negative for arthralgias, neck pain and neck stiffness. Skin: Negative for wound. Neurological: Positive for numbness. Psychiatric/Behavioral: Negative for agitation. Endocrine: Negative for goiter. Physical Exam: ED Triage Vitals [12/01/23 1126] Weight 71.7 kg (158 lb) Actual or estimated Estimated by patient/family report Height 1.6 m (5' 3") BP (!) 111/96 Pulse 103 Resp 16 Temp 36.7 ?C (98.1 ?F) Temp source Oral SpO2 100 % Measured on Room air Physical Exam Vitals and nursing note reviewed. Constitutional: Appearance: Normal appearance. She is normal weight. HENT: Head: Normocephalic and atraumatic. Mouth/Throat: Mouth: Mucous membranes are dry. Cardiovascular: Rate and Rhythm: Normal rate and regular rhythm. Pulses: Normal pulses. Pulmonary: Effort: Pulmonary effort is normal. No respiratory distress. Breath sounds: No wheezing. Abdominal: General: There is no distension. Palpations: There is no mass. Tenderness: There is no abdominal tenderness. There is no guarding or rebound. Hernia: No hernia is present. Musculoskeletal: General: Normal range of motion. Cervical back: Normal range of motion and neck supple. Skin: General: Skin is warm and dry. Neurological: General: No focal deficit present. Mental Status: She is alert and oriented to person, place, and time. 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 Radiology: No orders to display Lab Results: Lab Results CBC WITH DIFF - Abnormal Result Value Ref Range WBC 9.82 4.30 - 11.10 10*3/?L RBC 4.52 3.93 - 5.25 10*6/?L HGB 12.4 11.6 - 15.0 g/dL HCT 38.2 35.7 - 45.2 % MCV 84.5 80.6 - 95.5 fL MCH 27.4 25.9 - 32.8 pg MCHC 32.5 31.6 - 35.1 g/dL RDW-SD 44.9 39.0 - 49.9 fL RDW-CV 14.5 12.0 - 15.5 % PLT 309 166 - 358 10*3/?L MPV 11.2 9.5 - 12.9 fL NRBC/100 WBC 0.0 0.0 - 10.0 /100 WBCs NRBC x10 3 <0.01 10*3/?L GRAN MAT (NEUT) % 85.4 % IMM GRAN % 0.30 % LYMPH % 9.7 % MONO % 4.3 % EOS % 0.1 % BASO % 0.2 % GRAN MAT x10 3 (ANC) 8.39 (*) 1.88 - 7.09 10*3/uL IMM GRAN x10 3 0.03 0.00 - 0.06 10*3/uL LYMPH x10 3 0.95 (*) 1.32 - 3.29 10*3/uL MONO x10 3 0.42 0.33 - 0.92 10*3/uL EOS x10 3 <0.03 (*) 0.03 - 0.39 10*3/uL BASO x10 3 <0.03 0.01 - 0.07 10*3/uL MAGNESIUM - Normal MAGNESIUM 2.0 1.7 - 2.4 mg/dL THYROID STIMULATING HORMONE - Normal TSH 1.81 0.45 - 4.70 mIU/L FREE T3 - Normal FREE T3 3.86 2.77 - 5.27 pg/mL FREE T4 - Normal FREE T4 1.18 0.78 - 2.20 ng/dL: COMP. METABOLIC PANEL (14122) NA 136 135 - 145 mmol/L K 4.7 3.5 - 5.0 mmol/L CL 102 98 - 108 mmol/L CO2 TOTAL 26 23 - 31 mmol/L AGAP 8 2 - 16 BUN 10 7 - 23 mg/dL GLUCOSE 94 70 - 110 mg/dL CREATININE 0.60 0.50 - 1.04 mg/dL TOTAL BILI 0.4 0.1 - 1.1 mg/dL CALCIUM 9.3 8.6 - 10.6 mg/dL T PROTEIN 8.1 6.3 - 8.2 g/dL ALBUMIN 4.9 3.5 - 5.0 g/dL ALK PHOS 113 34 - 122 U/L ALTv 17 5 - 35 U/L AST(SGOT) 22 13 - 40 U/L eGFR 114.4 mL/min/1.73m2 EKG: If EKG completed, see Procedure Note. Orders and Treatments: Orders Placed This Encounter Procedures CBC WITH DIFF COMP. METABOLIC PANEL (32692) Magnesium Thyroid Stimulating Hormone FREE T3 Free T4 No orders of the defined types were placed in this encounter. First Provider Eval: ED Events Date/Time Event User Comments 12/01/23 1128 Medical Screening Begins YOLA SALEH DO -- 12/01/23 1128 First Provider Evaluation YOLA SALEH DO -- ED COURSE Diagnosis/Impression as of 12/01/23 1416 Palpitations Numbness Procedures: Procedures MDM: Medical Decision Making The patient presents from home for evaluation for left-sided numbness including her face, arm and leg that started when she woke up around 6:00 in the morning. She reports it lasted several seconds and then went away. She also reports she woke up around 2:00 in the morning and had a right arm numbness that resolved after several seconds. She initially struggled off the symptoms but as the day has progressed she has become more concerned about them. She also reports intermittent palpitations. No chest pain or pressure. No shortness of breath. No cough or congestion. No nausea, vomiting or diarrhea. She has taken the semaglutide injection twice with her last injection this past Wednesday. It is Wednesday today. She takes supplements at home but no other prescription medications. Vital signs are stable in the ER. Her speech is clear. No facial symmetry. Handgrip right was left. Muscle strength is 5/5 to upper extremities and lower extremities bilaterally. Steady gait. Her heart is regular rhythm. No concern for stroke based on her current presentation. Will check laboratory studies to eval for any possible electrolyte abnormality or thyroid disorder the may be causing her palpitations. Anticipate discharge home later. 1416 -the patient is doing well here in the ER. Her laboratory studies are unremarkable. She remained stable here in the ER and is okay for discharge home with PCP follow-up. Problems Addressed: Numbness: acute illness or injury Palpitations: acute illness or injury Amount and/or Complexity of Data Reviewed Labs: ordered. Decision-making details documented in ED Course. Risk OTC drugs. Flowsheet Documentation: Scoring Tools: No data recorded Disposition/Condition: ED Disposition ED Disposition Disch - Home Condition Stable Comment -- Discharge Medications: Patient's Medications START taking these medications No medications on file CONTINUE taking these medications which have NOT CHANGED DULOXETINE 30 MG CAPSULE Take 1 capsule by mouth daily. HYDROXYZINE 25 MG TABLET Take 1 tablet by mouth every 8 (eight) hours as needed for Anxiety. METRONIDAZOLE 500 MG TABLET Take 1 tablet by mouth every 12 (twelve) hours. START taking Modified Medications as Prescribed No medications on file STOP taking these medications No medications on file Follow-up: Electronically signed by: Yola Saleh DO 12/01/23 1416 [facility] 2023-08-24 16:53:32 Called pt, notified of providers recommendations. Verbalized understanding. Alexia Feliz RN 08/24/23 4:55 PM Alexia Feliz RN [facility] 2023-08-24 16:48:44 Please make pt aware that radiology was able to compare her mammogram to 2022. Current mammogram is negative for malignancy. Repeat mammogram in one year. SAKSHI Avilez 08/24/2023 4:51 PM [facility] 2023-08-18 16:54:26 The patient is scheduled for BCCS screening on 08/18/23 and is aware of proofs to bring. Rebeca Esquivel [facility] 2023-08-18 16:41:57 Called pt, discussed results and poc. Routed to PSS for bccs screening. Alexia Feliz RN 08/18/23 4:43 PM Alexia Feliz RN [facility] 2023-08-18 15:34:13 Please make pt aware that there was an area in the L breast that was slightly different from the R. Radiology will attempt to obtain her previous mammogram for comparison. If they are unable to obtain previous mammogram, they recommend follow up with with a diagnostic mammo with ultrasound if necessary. Orders have been done. SAKSHI Avilez 08/18/2023 3:44 PM [facility] 2023-08-18 15:26:12 L diagnostic mammogram and ultrasound ordered per radiology recommendations. SAKSHI Avilez 08/18/2023 3:29 PM [facility] 2023-07-28 15:31:59 Patient informed of results and new orders, verbalized understanding. Haley Escobedo [employer] [facility] 2023-07-28 15:19:11 Please make pt aware that vag probe results have returned. Pt is positive for BV. Rx for metronidazole 500mg BID x 7 days sent to pharmacy. [facility] 2023-07-21 13:35:59 Pt stated she accidentally pulled out her Paragard IUD and is needing another form of control. Stated she has HTW, informed patient pss can call to schedule WWE and can discuss control options. Advised to stay abstinent until appt, verbalized understanding. Haley Escobedo [employer] [facility] 2023-07-21 13:26:03 Grady Edward is a 42 year old female Patient is interesting in having tubal ligation. Please call patient. Rolanda Esquivel [facility] 2019-08-30 07:29:00 [id number] [facility] [place] [id number] PATIENT NAME: GRADY EDWARD ADMIT DATE: 05/25/19 ACCOUNT NO: [id number] ROOM NO: [facility] AGE: 38 SEX: F ADMITTING PHYSICIAN: Eben Tong MD ATTENDING PHYSICIAN: Eben Tong MD ADMISSION DATE: 05/25/2019 DISCHARGE DATE: 08/08/2019 ADMISSION DIAGNOSES: 1. A 23-week . 2. Incompetent cervix. 3. Short cervix. 4. History of . 5. Cerclage in place. 6. Advanced maternal age. PROCEDURE PERFORMED: Spontaneous vaginal delivery. DISCHARGE MEDICATIONS: Include vitamin and Motrin. DISPOSITION: The patient discharged home in good condition. SUMMARY OF HOSPITAL COURSE: The patient was admitted at 23 weeks and 2 days' gestation from the office following an ultrasound, which showed an extremely short cervix less than 5 mm despite cerclage in place and with previous history of incompetent cervix and . SUMMARY OF HOSPITAL COURSE: The patient admitted at 23 weeks and 1 day gestation from the office where an ultrasound showed extremely short cervix less than 5-mm with funneling despite cerclage in place. She has a history of and had been taking [place] progesterone injections. However, given these new findings of extremely short cervix with dilation, decision was made to admit the patient for an inpatient observation and monitoring. She was started on magnesium and course of betamethasone at the time of admission, which was continued 24 hours. Neonatology was consulted. She remained relatively stable upon admission. She reported good movement without contractions, leaking of fluid or bleeding. heart rate tracing remained reactive and reassuring. She was continued on her weekly [place] injections. She had no significant complaints until 08/02/2019, when she noted having some vaginal spotting, pinkish discharge with wiping as well as started to feel some minor tightening contractions, this was continued on August 02, when she had more discharge with wiping and more frequent abdominal cramping. She was given terbutaline IM as needed for contractions, which helped with the contraction pain; however, still feeling some contractions; on August 04, when she began having more significant bleeding and on exam was noted to be at approximately 2 to 3 cm with the cerclage tearing through the cervix and bulging bag of water. At this point, she was 33 weeks' gestation and signs of early labor, not responsive to tocolytics, decision was made to proceed with removal of cerclage, PATIENT NAME: GRADY EDWARD a rescue dose of steroids was started and magnesium was restarted; however, she continued to have regular contractions and decision was made to remove the cerclage. Cerclage was easily removed and following removal of cerclage was found to be 6 cm. She then progressed in labor to spontaneous vaginal delivery. , the patient did well, she remained afebrile and stable vital signs and by day #2, she was meeting all her goals. She was discharged home in good condition. Discharge exam was benign. She was scheduled for followup in the office in 6 weeks for check. Dictated By: Eben Tong MD WT: DS:F.FREDERIC/KASANDRA/NTS Conf#: [id number]/DID#: [id number] Authenticated by Eben Tong MD On 09/25/2019 12:52:59 PM at 1253 PATIENT NAME: GRADY EDWARD [facility] 2019-08-08 12:08:00 [facility] ([facility]) OB Postpart Progr Note REPORT#:[id number] REPORT STATUS: Signed DATE:08/08/19 TIME: 1208 PATIENT: GRADY EDWARD UNIT #: [id number] ROOM/BED: [address] : [address] AGE: 38 SEX: F ATTEND: Eben Tong MD ADM AUTHOR: Eben Tong MD * ALL edits or amendments must be made on the electronic/computer document * Subjective Subjective Status/Day: post (d2) Patient reports: Patient reports: Yes no complaints, Yes pain management effective, Yes tolerating po well Objective Nursing Documentation Review Nursing Data: The data set between the solid lines has been imported from nursing documentation. Any exceptions have been noted below under Provider comments. Feeding preference: Provider comments on imported nursing data: [] General VS: Vital Signs: Date Time Temp Pulse Resp B/P B/P Pulse O2 O2 Flow FiO2 Mean Ox Delivery Rate 08/07 0842 98.7 80 20 101/66 08/07 0040 78.0 08/08 39 99.3 79 18 Patient Weight Weight (lb): 223 Weight (oz): Weight (kg): 101.151 Physical Exam Neuro: Exam: alert, oriented x3 Abdomen: soft, no abnormal tenderness Uterus: firm, non-tender Fundus: firm, below the umbilicus, non-tender Lacerations: Perineal laceration(s): None High vaginal laceration: no Diagnosis, Assessment Plan Diagnosis, Assessment Plan Assessment: nml progress Plan: routine care, discharge today at 1209 RPT #:[id number] END OF REPORT [facility] 2019-08-06 06:36:00 [facility] ([facility]) OB Delivery Note REPORT#:[id number] REPORT STATUS: Signed DATE:08/06/19 TIME: 635 PATIENT: GRADY EDWARD UNIT #: [id number] ROOM/BED: [address] : [address] AGE: 38 SEX: F ATTEND: Eben Tong MD ADM AUTHOR: Eben Tong MD * ALL edits or amendments must be made on the electronic/computer document * OB Delivery Nursing Documentation Review Nursing data: The data set between the solid lines has been imported from nursing documentation. Any exceptions have been noted below under Provider comments. _ ROM date: ROM time: Membranes rupture method: Amniotic fluid color: Amniotic fluid amount: EGA (weeks/days): 33.2 EGA at admit (weeks): EGA at delivery (weeks): 33 Steroids prior to arrival: Antibiotic prophylaxis given: evaluation at delivery: Delivery date infant A: Delivery time infant A: Birthweight (gm) infant A: Weight (lb) infant A: Weight (oz) A: Gender infant A: 1 minute infant A: 5 minutes A: 10 minutes infant A: Cord pH obtained A: Vacuum time infant A: Vacuum # pulls A: Vacuum # popoffs A: QBL at delivery: __ Provider comments on imported nursing data: [] Pre-delivery GBS status: GBS status: unknown Prophylaxis administered: ampicillin Meds prior to delivery: betamethasone, magnesium sulfate evaluation at delivery: team Admission EGA (wks/days): 23.1 EGA at delivery (wks/days): 33.4 Baby A Information Baby A information Delivery date: 08/06/19 Delivery time: 622 status: live born Wt of baby (lbs/oz): 5/7 Gender: female 1 minute: 8 5 minutes: 9 Presentation: vertex Nuchal cord Baby A Nuchal cord: no Vaginal Delivery Vaginal delivery: Labor: spontaneous Vaginal delivery: spontaneous Amniotic fluid: clear Anesthesia type: epidural anesthesia Episiotomy: none Episiotomy repair: not applicable Laceration repair: not required Placenta: spontaneous, intact Post delivery meds used: oxytocin Count: correct, vag exam neg for sponges Mother's condition: mother stable 's condition: stable in room Lacerations: Perineal laceration(s): None High vaginal laceration: no Blood Loss/Details Blood loss at delivery: <1000 ml, no more than expected EBL at delivery (ml's): 200 at 0637 RPT #:[id number] END OF REPORT [facility] 2019-08-06 02:56:00 [facility] ([facility]) Clinical Note REPORT#:[id number] REPORT STATUS: Signed DATE:08/06/19 TIME: 6 PATIENT: GRADY EDWARD UNIT #: [id number] ROOM/BED: [address] : [address] AGE: 38 SEX: F ATTEND: Eben Tong MD ADM AUTHOR: Eben Tong MD * ALL edits or amendments must be made on the electronic/computer document * Clinical Note Note: comfortable with epidural. cvx 8-9/100/+1. antic . at 0256 RPT #:[id number] END OF REPORT [facility] 2019-08-06 01:12:00 [facility] ([facility]) Clinical Note REPORT#:[id number] REPORT STATUS: Signed DATE:08/06/19 TIME: 011 PATIENT: GRADY EDWARD UNIT #: [id number] ROOM/BED: [address] : 80 AGE: 38 SEX: F ATTEND: Eben Tong MD ADM AUTHOR: Eben Tong MD * ALL edits or amendments must be made on the electronic/computer document * Clinical Note Note: cvx 8/C/-1. controlled ROM with copious clear fluid. FHT 135, Cat I. toco irregular. antic . at 0113 RPT #:[id number] END OF REPORT [facility] 2019-08-05 21:50:00 [facility] ([facility]) Clinical Note REPORT#:[id number] REPORT STATUS: Signed DATE:08/05/19 TIME: 2149 PATIENT: GRADY EDWARD UNIT #: [id number] ROOM/BED: [address] : 80 AGE: 38 SEX: F ATTEND: Eben Tong MD ADM AUTHOR: Eben Tong MD * ALL edits or amendments must be made on the electronic/computer document * Clinical Note Note: comfrotable with epidural. FHT 135, Cat I. toco q4-5 min. cerclage removed. cvx /-1, bulging BOW. mag/BMS, expectant mgmt for now. at 2151 RPT #:[id number] END OF REPORT [facility] 2019-08-05 20:04:00 [facility] ([facility]) DT Consult Note REPORT#:[id number] REPORT STATUS: Signed DATE:08/05/19 TIME: 2003 PATIENT: GRADY EDWARD UNIT #: [id number] ROOM/BED: [address] : [address] AGE: 38 SEX: F ATTEND: Eben Tong MD ADM AUTHOR: Chris Morris MD * ALL edits or amendments must be made on the electronic/computer document * CONSULT NOTE Note: Neonatology Consult Followup Originally seen by Dr. Zuniga on 05/25 at 23 2/7 weeks. I reviewed outcome at 33-34 weeks, including surivival similar to term and no need to screen for complications of prematurity, anticipated possible short-term respiratory distress but ultimately anticipate discharge in good health at 36-38 weeks. Discussed treatment of resp distress, Level 2 vs Level 3, nutrition and . Answered all questions. Thank you for giving us the opportunity to update this mother. We look forward to attending delivery and caring for the infant. at 2006 RPT #:[id number] END OF REPORT [facility] 2019-08-05 18:39:00 [facility] ([facility]) Clinical Note REPORT#:[id number] REPORT STATUS: Signed DATE:08/05/19 TIME: 183 PATIENT: GRADY EDWARD UNIT #: [id number] ROOM/BED: [address] : 80 AGE: 38 SEX: F ATTEND: Eben Tong MD ADM AUTHOR: Eben Tong MD * ALL edits or amendments must be made on the electronic/computer document * Clinical Note Note: CTSP for vaginal bleeding, feeling more ctx. cvx 4/100/-2 on exam, bulging membranes, cerclage bridged across cvx. FHT 135, Cat I. toco q5 min. transfer to D, will remove cerclage. BMS, start mag. antic . at 1840 RPT #:[id number] END OF REPORT [facility] 2019-08-05 08:56:00 [facility]) OB Antepartum Prog Note REPORT#:[id number] REPORT STATUS: Signed DATE:08/05/19 TIME: 08 PATIENT: GRADY EDWARD UNIT #: [id number] ROOM/BED: [address] : 80 AGE: 38 SEX: F ATTEND: Eben Tong MD ADM AUTHOR: Eben Tong MD * ALL edits or amendments must be made on the electronic/computer document * Subjective Subjective Admission EGA (wks/days): 23.1, 33.3 today Patient reports: Comments: note some pinkish d/c with wiping. thinks mucous plug passing. some ctx last night, better after terb. still feeling some tightening/cramping. no other c/o. Objective Nursing Documentation Review Nursing data: The data set between the solid lines has been imported from nursing documentation. Any exceptions have been noted below under Provider comments. ROM date: ROM time: Labor onset date: Labor onset time: EGA at admit (weeks): Provider comments on imported nursing data: [] VS: Last Documented: Result Date Time Pulse Ox 98 08/03 2145 Pulse 108 08/03 2145 B/P Mean 71.0 08/04 2007 B/P 98/55 08/04 2007 Temp 97.9 08/03 0738 Resp 14 08/03 0738 Vital Signs Date Temp Pulse Resp B/P B/P Mean Pulse Ox FiO2 08/03 80-108 98/55 71.0 98-99 Patient Weight Weight (lb): 223 Weight (oz): Weight (kg): 101.151 Membranes: Intact Cervical/ exam: presentation: cephalic Uterine activity: Monitor: toco Frequency (description): irregular Procedures: NST reactive HEENT: normocephalic w/o injury Neuro: Exam: alert, oriented x3 Abdomen: gravid, soft, no abnormal tenderness Uterus: soft, non-tender Baby A: Baby A baseline: 135 bpm Baby A variability: moderate 6-25 bpm Baby A accelerations: 15 X 15 Baby A decelerations: none Baby A FHR category: category 1 Baby A notes: AGA Diagnosis, Assessment Plan Diagnosis, Assessment Plan Assessment: 33.3 wks, hx PTB, cerclage in place, cervical shortening/dilation. watch for signs of labor, plan mag if does start berry. reactive NST. s/p BMS. cont bedrest, exp mgmt. cerclage removal, antic if labors Plan: continue current managmnt at 0858 RPT #:[id number] END OF REPORT [facility] 2019-08-04 13:59:00 [facility] ([facility]) OB Antepartum Prog Note REPORT#:[id number] REPORT STATUS: Signed DATE:08/04/19 TIME: 1359 PATIENT: GRADY EDWARD UNIT #: [id number] ROOM/BED: [address] : 80 AGE: 38 SEX: F ATTEND: Eben Tong MD ADM AUTHOR: Eben Tong MD * ALL edits or amendments must be made on the electronic/computer document * Subjective Subjective Admission EGA (wks/days): 23.1, 33.2 today Patient reports: Comments: note some pinkish d/c with wiping. some occ tightening. no other c/o. Objective Nursing Documentation Review Nursing data: The data set between the solid lines has been imported from nursing documentation. Any exceptions have been noted below under Provider comments. ROM date: ROM time: Labor onset date: Labor onset time: EGA at admit (weeks): Provider comments on imported nursing data: [] VS: Last Documented: Result Date Time Temp 97.9 06/12 0738 Resp 14 08/03 0738 B/P Mean 72.0 08/02 2010 B/P 108/57 08/02 2010 Pulse 90 08/02 2010 Pulse Ox 99 07/31 2025 Vital Signs Date Temp Pulse Resp B/P B/P Mean Pulse Ox FiO2 08/02-08/03 97.9 90 14 108/57 72.0 Patient Weight Weight (lb): 223 Weight (oz): Weight (kg): 101.151 Membranes: Intact Cervical/ exam: Dilatation (cm): 0 - closed (per last exam ) Effacement (%): 70 Est wt (gms): 683 station: - 3 presentation: transverse (on last sono) Uterine activity: Monitor: toco Frequency (description): occasional Procedures: NST reactive HEENT: normocephalic w/o injury Neuro: Exam: alert, oriented x3 Abdomen: gravid, soft, no abnormal tenderness Uterus: soft, non-tender Baby A: Baby A baseline: 140 bpm Baby A variability: moderate 6-25 bpm Baby A accelerations: 15 X 15 Baby A decelerations: none Baby A FHR category: category 1 Baby A notes: AGA Diagnosis, Assessment Plan Diagnosis, Assessment Plan Assessment: 33.2 wks, hx PTB, cerclage in place, cervical shortening/dilation. no evidence labor. reactive NST. s/p BMS. cont bedrest, exp mgmt. cerclage removal, antic if labors Plan: continue current managmnt at 1400 RPT #:[id number] END OF REPORT [facility] 2019-08-03 08:08:00 [facility] ([facility]) OB Antepartum Prog Note REPORT#:[id number] REPORT STATUS: Signed DATE:08/03/19 TIME: 807 PATIENT: GRADY EDWARD UNIT #: [id number] ROOM/BED: 5[address] : 80 AGE: 38 SEX: F ATTEND: Eben Tong MD ADM AUTHOR: Eben Tong MD * ALL edits or amendments must be made on the electronic/computer document * Subjective Subjective Admission EGA (wks/days): 23.1, 33.0 today Patient reports: Patient reports: Yes no complaints, Yes normal movement, No abdominal pain, No vaginal bleeding, No leaking fluid, No contractions Objective Nursing Documentation Review Nursing data: The data set between the solid lines has been imported from nursing documentation. Any exceptions have been noted below under Provider comments. ROM date: ROM time: Labor onset date: Labor onset time: EGA at admit (weeks): Provider comments on imported nursing data: [] VS: Last Documented: Result Date Time B/P Mean 79.0 08/02 2055 B/P 108/62 08/02 2055 Pulse 88 08/02 2055 Pulse Ox 99 07/31 2025 Temp 97.7 07/30 0812 Resp 16 07/30 0812 Vital Signs Date Temp Pulse Resp B/P B/P Mean Pulse Ox FiO2 08/01 88-90 101-108/60-62 75.0-79.0 Patient Weight Weight (lb): 223 Weight (oz): Weight (kg): 101.151 Membranes: Intact Cervical/ exam: Dilatation (cm): 0 - closed (per last exam ) Effacement (%): 70 Est wt (gms): 683 station: - 3 presentation: transverse (on last sono) Uterine activity: Monitor: toco Frequency (description): regular (last night, pt denies feeling) Procedures: NST reactive HEENT: normocephalic w/o injury Neuro: Exam: alert, oriented x3 Abdomen: gravid, soft, no abnormal tenderness Uterus: soft, non-tender Baby A: Baby A baseline: 140 bpm Baby A variability: moderate 6-25 bpm Baby A accelerations: 15 X 15 Baby A decelerations: none Baby A FHR category: category 1 Baby A notes: AGA Diagnosis, Assessment Plan Diagnosis, Assessment Plan Assessment: 33.1 wks, hx PTB, cerclage in place, cervical shortening/dilation. no evidence labor. reactive NST. s/p BMS. cont bedrest, exp mgmt. Plan: continue current managmnt at 0809 RPT #:[id number] END OF REPORT [facility] 2019-08-02 12:22:00 [facility] ([facility]) OB Antepartum Prog Note REPORT#:[id number] REPORT STATUS: Signed DATE:08/02/19 TIME: 1222 PATIENT: GRADY EDWARD UNIT #: [id number] ROOM/BED: [address] : 80 AGE: 38 SEX: F ATTEND: Eben Tong MD ADM AUTHOR: Eben Tong MD * ALL edits or amendments must be made on the electronic/computer document * Subjective Subjective Admission EGA (wks/days): 23.1, 33.0 today Patient reports: Patient reports: Yes no complaints, Yes vaginal bleeding, Yes leaking fluid Objective Nursing Documentation Review Nursing data: The data set between the solid lines has been imported from nursing documentation. Any exceptions have been noted below under Provider comments. ROM date: ROM time: Labor onset date: Labor onset time: EGA at admit (weeks): Provider comments on imported nursing data: [] VS: Last Documented: Result Date Time B/P Mean 75.0 08/01 0851 B/P 101/60 08/01 0851 Pulse 90 08/01 0851 Pulse Ox 99 07/31 2026 Temp 97.7 07/30 0812 Resp 16 07/30 0812 Vital Signs Date Temp Pulse Resp B/P B/P Mean Pulse Ox FiO2 07/31-08/01 84-90 101-103/57-60 74.0-75.0 99 Patient Weight Weight (lb): 223 Weight (oz): Weight (kg): 101.151 Membranes: Intact Cervical/ exam: Dilatation (cm): 0 - closed (per last exam ) Effacement (%): 70 Est wt (gms): 683 station: - 3 presentation: transverse (on last sono) Uterine activity: Monitor: toco Frequency (description): irritability Procedures: NST reactive HEENT: normocephalic w/o injury Neuro: Exam: alert, oriented x3 Abdomen: gravid, soft, no abnormal tenderness Uterus: soft, non-tender Baby A: Baby A baseline: 140 bpm Baby A variability: moderate 6-25 bpm Baby A accelerations: 15 X 15 Baby A decelerations: none Baby A FHR category: category 1 Baby A notes: AGA Diagnosis, Assessment Plan Diagnosis, Assessment Plan Assessment: 33.0 wks, hx PTB, cerclage in place, cervical shortening/dilation. no evidence labor. reactive NST. s/p BMS. cont bedrest, exp mgmt. Plan: continue current managmnt at 1223 RPT #:[id number] END OF REPORT [facility] 2019-08-01 12:08:00 [facility] ([facility]) OB Antepartum Prog Note REPORT#:[id number] REPORT STATUS: Signed DATE:08/01/19 TIME: 1208 PATIENT: GRADY EDWARD UNIT #: [id number] ROOM/BED: [address] : 80 AGE: 38 SEX: F ATTEND: Eben Tong MD ADM AUTHOR: Eben Tong MD * ALL edits or amendments must be made on the electronic/computer document * Subjective Subjective Admission EGA (wks/days): 23.1, 32.6 today Patient reports: Patient reports: Yes no complaints, Yes normal movement, No abdominal pain, No vaginal bleeding, No leaking fluid, No contractions Objective Nursing Documentation Review Nursing data: The data set between the solid lines has been imported from nursing documentation. Any exceptions have been noted below under Provider comments. ROM date: ROM time: Labor onset date: Labor onset time: EGA at admit (weeks): Provider comments on imported nursing data: [] VS: Last Documented: Result Date Time Pulse Ox 98 07/31 0842 Pulse 89 07/31 0842 B/P Mean 70.0 07/31 0840 B/P 93/55 07/31 0840 Temp 97.7 07/31 811 Resp 16 07/31 811 Vital Signs Date Temp Pulse Resp B/P B/P Mean Pulse Ox FiO2 07/30-07/31 81-89 93-107/55-59 70.0-73.0 98-99 Patient Weight Weight (lb): 223 Weight (oz): Weight (kg): 101.151 Membranes: Intact Cervical/ exam: Dilatation (cm): 0 - closed (per last exam ) Effacement (%): 70 Est wt (gms): 683 station: - 3 presentation: transverse (on last sono) Uterine activity: Monitor: toco Frequency (description): irritability Procedures: NST reactive HEENT: normocephalic w/o injury Neuro: Exam: alert, oriented x3 Abdomen: gravid, soft, no abnormal tenderness Uterus: soft, non-tender Baby A: Baby A baseline: 140 bpm Baby A variability: moderate 6-25 bpm Baby A accelerations: 15 X 15 Baby A decelerations: none Baby A FHR category: category 1 Baby A notes: AGA Diagnosis, Assessment Plan Diagnosis, Assessment Plan Assessment: 32.6 wks, hx PTB, cerclage in place, cervical shortening/dilation. no evidence labor. reactive NST. s/p BMS. cont bedrest, exp mgmt. Plan: continue current managmnt at 1209 RPT #:[id number] END OF REPORT [facility] 2019-07-31 08:38:00 [facility] ([facility]) OB Antepartum Prog Note REPORT#:[id number] REPORT STATUS: Signed DATE:07/31/19 TIME: 837 PATIENT: GRADY EDWARD UNIT #: [id number] ROOM/BED: 5078-A : 80 AGE: 38 SEX: F ATTEND: Eben Tong MD ADM AUTHOR: Eben Tong MD * ALL edits or amendments must be made on the electronic/computer document * Subjective Subjective Admission EGA (wks/days): 23.1, 32.5 today Patient reports: Patient reports: Yes no complaints, Yes normal movement, No abdominal pain, No vaginal bleeding, No leaking fluid, No contractions Objective Nursing Documentation Review Nursing data: The data set between the solid lines has been imported from nursing documentation. Any exceptions have been noted below under Provider comments. ROM date: ROM time: Labor onset date: Labor onset time: EGA at admit (weeks): Provider comments on imported nursing data: [] VS: Last Documented: Result Date Time B/P Mean 67.0 07/29 2022 B/P 87/55 07/29 2022 Pulse 106 07/29 2022 Pulse Ox 97 07/29 2016 Temp 98.1 07/29 0805 Resp 18 07/29 08 Vital Signs Date Temp Pulse Resp B/P B/P Mean Pulse Ox FiO2 07/29 88-106 86-87/50-55 64.0-67.0 97 Patient Weight Weight (lb): 166 Weight (oz): Weight (kg): 75.296 Membranes: Intact Cervical/ exam: Dilatation (cm): 0 - closed (per last exam ) Effacement (%): 70 Est wt (gms): 683 station: - 3 presentation: transverse (on last sono) Uterine activity: Monitor: toco Frequency (description): irritability Procedures: NST reactive HEENT: normocephalic w/o injury Neuro: Exam: alert, oriented x3 Abdomen: gravid, soft, no abnormal tenderness Uterus: soft, non-tender Baby A: Baby A baseline: 140 bpm Baby A variability: moderate 6-25 bpm Baby A accelerations: 15 X 15 Baby A decelerations: none Baby A FHR category: category 1 Baby A notes: AGA Diagnosis, Assessment Plan Diagnosis, Assessment Plan Assessment: 32.5 wks, hx PTB, cerclage in place, cervical shortening/dilation. no evidence labor. reactive NST. s/p BMS. cont bedrest, exp mgmt. Plan: continue current managmnt at 0840 RPT #:[id number] END OF REPORT [facility] 2019-07-30 13:19:00 [facility] ([facility]) OB Antepartum Prog Note REPORT#:[id number] REPORT STATUS: Signed DATE:07/30/19 TIME: 1319 PATIENT: GRADY EDWARD UNIT #: [id number] ROOM/BED: [address] : 80 AGE: 38 SEX: F ATTEND: Eben Tong MD ADM AUTHOR: Palmer Pérez MD * ALL edits or amendments must be made on the electronic/computer document * Subjective Subjective Admission EGA (wks/days): 23.1, 32.4 today Patient reports: Patient reports: Yes no complaints, Yes normal movement, No leaking fluid, No contractions Objective Nursing Documentation Review Nursing data: The data set between the solid lines has been imported from nursing documentation. Any exceptions have been noted below under Provider comments. ROM date: ROM time: Labor onset date: Labor onset time: EGA at admit (weeks): Provider comments on imported nursing data: [] Membranes: Intact Cervical/ exam: Dilatation (cm): 0 - closed (per last exam ) Effacement (%): 70 Est wt (gms): 683 station: - 3 presentation: transverse (on last sono) Uterine activity: Monitor: toco Frequency (description): irritability Procedures: NST reactive HEENT: normocephalic w/o injury Lungs: unlabored breathing Neuro: Exam: alert, oriented x3 Abdomen: gravid, soft, no abnormal tenderness Uterus: soft, non-tender Lower extremities: Edema: none Calf tenderness: negative Baby A: Baby A baseline: 140 bpm Baby A variability: moderate 6-25 bpm Baby A accelerations: 15 X 15 Baby A decelerations: none Baby A FHR category: category 1 Baby A notes: AGA Diagnosis, Assessment Plan Diagnosis, Assessment Plan Free Text A P: 32.4 wks, hx PTB/incompetent cervix, cerclage in place, short cervix. no signs of labor. Cephalic on ultrasound denita weekly. S/P BMZ/Magnesium, kylee consult. Mg/BMZ 2nd course PRN cont bedrest, monitoring. at 1322 RPT #:[id number] END OF REPORT [facility] 2019-07-29 10:26:00 [facility] ([facility]) OB Antepartum Prog Note REPORT#:[id number] REPORT STATUS: Signed DATE:07/29/19 TIME: 1026 PATIENT: GRADY EDWARD UNIT #: [id number] ROOM/BED: [address] : 80 AGE: 38 SEX: F ATTEND: Eben Tong MD ADM AUTHOR: Nadine Laboy MD * ALL edits or amendments must be made on the electronic/computer document * Subjective Subjective Admission EGA (wks/days): 41 weeks, 23.1, 32.2 today Patient reports: Comments: reports some mild ctx constipation Nursing reports: Comments: c/o low back pain Objective VS: Last Documented: Result Date Time B/P Mean 76.0 07/28 0935 B/P 103/61 07/28 0935 Pulse 98 07/28 0935 Pulse Ox 98 07/26 2008 Temp 98.1 07/26 2008 Resp 16 07/21 0803 Vital Signs Date Temp Pulse Resp B/P B/P Mean Pulse Ox FiO2 /-07/28 93-98 92-103/50-61 65.0-76.0 Patient Weight Weight (lb): 166 Weight (oz): Weight (kg): 75.296 Membranes: Intact Uterine activity: Monitor: toco Frequency (description): irritability Procedures: NST reactive HEENT: normocephalic w/o injury Lungs: unlabored breathing Neuro: Exam: alert, oriented x3 Abdomen: gravid, soft, no abnormal tenderness Uterus: soft, non-tender Lower extremities: Edema: none Calf tenderness: negative Baby A: Baby A baseline: 140 bpm Baby A variability: moderate 6-25 bpm Baby A accelerations: 15 X 15 Baby A decelerations: none Diagnosis, Assessment Plan Diagnosis, Assessment Plan Assessment: cervical shortening, no evidence labor Plan: continue current managmnt at 1027 RPT #:[id number] END OF REPORT [facility] 2019-07-28 07:25:00 [facility] ([facility]) OB Antepartum Prog Note REPORT#:[id number] REPORT STATUS: Signed DATE:07/28/19 TIME: 724 PATIENT: GRADY EDWARD UNIT #: [id number] ROOM/BED: [address] : 80 AGE: 38 SEX: F ATTEND: Eben Tong MD ADM AUTHOR: Eben Tong MD * ALL edits or amendments must be made on the electronic/computer document * Subjective Subjective Admission EGA (wks/days): 41 weeks, 23.1, 32.2 today Nursing reports: Nursing reports: Yes no complaints, Yes normal movement, No abdominal pain, No vaginal bleeding, No leaking fluid, No contractions Objective Membranes: Intact Cervical/ exam: Dilatation (cm): 0 - closed (per last exam ) Effacement (%): 70 Est wt (gms): 683 station: - 3 presentation: transverse (on last sono) Uterine activity: Monitor: toco Frequency (description): irritability Procedures: NST reactive HEENT: normocephalic w/o injury Neuro: Exam: alert, oriented x3 Abdomen: gravid, soft, no abnormal tenderness Uterus: soft, non-tender Baby A: Baby A baseline: 135 bpm Baby A variability: moderate 6-25 bpm Baby A accelerations: 15 X 15 Baby A decelerations: variable Baby A FHR category: category 1 Baby A notes: AGA Diagnosis, Assessment Plan Diagnosis, Assessment Plan Assessment: 32.1 wks, hx PTB/incompetent cervix, cerclage in place, short cervix. no signs of labor. Cephalic on ultrasound denita weekly will talk w/ dr. tong about dc iron, on stool softeners for now. s/p BMS, kylee. Mg/BMZ 2nd course PRN cont bedrest, monitoring. Plan: continue current managmnt at 0726 RPT #:[id number] END OF REPORT [facility] 2019-07-27 13:01:00 [facility] ([facility]) OB Antepartum Prog Note REPORT#:[id number] REPORT STATUS: Signed DATE:07/27/19 TIME: 1301 PATIENT: GRADY EDWARD UNIT #: [id number] ROOM/BED: [facility]-A : 80 AGE: 38 SEX: F ATTEND: Eben Tong MD ADM AUTHOR: Eben Tong MD * ALL edits or amendments must be made on the electronic/computer document * Subjective Subjective Admission EGA (wks/days): 41 weeks, 23.1, 32.1 today Patient reports: Patient reports: Yes no complaints, Yes normal movement, No abdominal pain, No vaginal bleeding, No leaking fluid, No contractions Objective Nursing Documentation Review Nursing data: The data set between the solid lines has been imported from nursing documentation. Any exceptions have been noted below under Provider comments. ROM date: ROM time: Labor onset date: Labor onset time: EGA at admit (weeks): Provider comments on imported nursing data: [] VS: Last Documented: Result Date Time B/P Mean 71.0 07/26 0832 B/P 98/57 07/26 0832 Pulse 91 07/26 0832 Pulse Ox 99 07/25 1949 Temp 98.0 07/21 0803 Resp 16 07/21 0803 Vital Signs Date Temp Pulse Resp B/P B/P Mean Pulse Ox FiO2 /-07/26 91 98-107/57-65 71.0-80.0 99 Patient Weight Weight (lb): 166 Weight (oz): Weight (kg): 75.296 Membranes: Intact Cervical/ exam: Dilatation (cm): 0 - closed (per last exam ) Effacement (%): 70 Est wt (gms): 683 station: - 3 presentation: transverse (on last sono) Uterine activity: Monitor: toco Frequency (description): irritability Procedures: NST reactive HEENT: normocephalic w/o injury Neuro: Exam: alert, oriented x3 Abdomen: gravid, soft, no abnormal tenderness Uterus: soft, non-tender Baby A: Baby A baseline: 135 bpm Baby A variability: moderate 6-25 bpm Baby A accelerations: 15 X 15 Baby A decelerations: variable Baby A FHR category: category 1 Baby A notes: AGA Diagnosis, Assessment Plan Diagnosis, Assessment Plan Assessment: 32.1 wks, hx PTB/incompetent cervix, cerclage in place, short cervix. no signs of labor. Cephalic on ultrasound denita weekly will talk w/ dr. tong about dc iron, on stool softeners for now. s/p BMS, kylee. Mg/BMZ 2nd course PRN cont bedrest, monitoring. Plan: continue current managmnt at 1302 RPT #:[id number] END OF REPORT [facility] 2019-07-26 11:00:00 [facility] ([facility]) OB Antepartum Prog Note REPORT#:[id number] REPORT STATUS: Signed DATE:07/26/19 TIME: 1100 PATIENT: GRADY EDWARD UNIT #: [id number] ROOM/BED: [address] : 80 AGE: 38 SEX: F ATTEND: Eben Tong MD ADM AUTHOR: Eben Tong MD * ALL edits or amendments must be made on the electronic/computer document * Subjective Subjective Admission EGA (wks/days): 41 weeks, 23.1, 32.0 today Patient reports: Patient reports: Yes no complaints, Yes normal movement, No abdominal pain, No vaginal bleeding, No leaking fluid, No contractions Objective Nursing Documentation Review Nursing data: The data set between the solid lines has been imported from nursing documentation. Any exceptions have been noted below under Provider comments. ROM date: ROM time: Labor onset date: Labor onset time: EGA at admit (weeks): Provider comments on imported nursing data: [] VS: Last Documented: Result Date Time B/P Mean 79.0 / 0849 B/P 109/60 06/ 0849 Pulse 98 / 0849 Pulse Ox 99 / 1929 Temp 98.0 07/21 0803 Resp 16 07/21 0803 Vital Signs Date Temp Pulse Resp B/P B/P Mean Pulse Ox FiO2 06/-07/25 98-102 109-113/60-64 79.0-81.0 99 Patient Weight Weight (lb): 166 Weight (oz): Weight (kg): 75.296 Membranes: Intact Cervical/ exam: Dilatation (cm): 0 - closed (per last exam ) Effacement (%): 70 Est wt (gms): 683 station: - 3 presentation: transverse (on last sono) Uterine activity: Monitor: toco Frequency (description): irritability Procedures: NST reactive HEENT: normocephalic w/o injury Neuro: Exam: alert, oriented x3 Abdomen: gravid, soft, no abnormal tenderness Uterus: soft, non-tender Baby A: Baby A baseline: 135 bpm Baby A variability: moderate 6-25 bpm Baby A accelerations: 15 X 15 Baby A decelerations: variable Baby A FHR category: category 1 Baby A notes: AGA Diagnosis, Assessment Plan Diagnosis, Assessment Plan Assessment: 32.0 wks, hx PTB/incompetent cervix, cerclage in place, short cervix. no signs of labor. Cephalic on ultrasound denita weekly will talk w/ dr. tong about dc iron, on stool softeners for now. s/p BMS, kylee. Mg/BMZ 2nd course PRN cont bedrest, monitoring. Plan: continue current managmnt at 1101 RPT #:[id number] END OF REPORT [facility] 2019-07-25 12:34:00 [facility] ([facility]) OB Antepartum Prog Note REPORT#:[id number] REPORT STATUS: Signed DATE:07/25/19 TIME: 1234 PATIENT: GRADY EDWARD UNIT #: [id number] ROOM/BED: [address] : 80 AGE: 38 SEX: F ATTEND: Eben Tong MD ADM AUTHOR: Eben Tong MD * ALL edits or amendments must be made on the electronic/computer document * Subjective Subjective Admission EGA (wks/days): 41 weeks, 23.1, 31.6 today Patient reports: Patient reports: Yes normal movement, No abdominal pain, No vaginal bleeding, No leaking fluid Comments: reports some mild ctx constipation Objective Nursing Documentation Review Nursing data: The data set between the solid lines has been imported from nursing documentation. Any exceptions have been noted below under Provider comments. ROM date: ROM time: Labor onset date: Labor onset time: EGA at admit (weeks): Provider comments on imported nursing data: [] VS: Last Documented: Result Date Time B/P Mean 73.0 07/24 0815 B/P 97/59 07/24 0815 Pulse 91 07/24 0815 Pulse Ox 98 07/23 2020 Temp 98.0 07/21 0803 Resp 16 07/21 0803 Vital Signs Date Temp Pulse Resp B/P B/P Mean Pulse Ox FiO2 07/23-07/24 80-91 92-97/54-59 68.0-73.0 98 Patient Weight Weight (lb): 166 Weight (oz): Weight (kg): 75.296 Membranes: Intact Cervical/ exam: Dilatation (cm): 0 - closed (per last exam ) Effacement (%): 70 Est wt (gms): 683 station: - 3 presentation: transverse (on last sono) Uterine activity: Monitor: toco Frequency (description): irritability Procedures: NST reactive HEENT: normocephalic w/o injury Neuro: Exam: alert, oriented x3 Abdomen: gravid, soft, no abnormal tenderness Uterus: soft, non-tender Baby A: Baby A baseline: 135 bpm Baby A variability: moderate 6-25 bpm Baby A accelerations: 15 X 15 Baby A decelerations: variable Baby A FHR category: category 1 Baby A notes: AGA Findings/data: Recent Impressions: ULTRASOUND - US FLW UP 07/23 1545 Report Impression - Status: SIGNED Entered: 07/24/2019 2830 CLINICAL SUMMARY Type of Gestation: Carreon Intrauterine in vertex presentation. size is appropriate for gestational age. growth: Consistent with normal growth motion and organs seen: somatic activity observed body and limb movements seen Regular cardiac rhythm observed Placental location: Posterior Placental maturity : Grade 2 There is no evidence of placenta previa. Amniotic fluid volume is normal. Uterus and adnexa: CERCLAGE SEEN. CERVIX IS OPEN [id number] AP DIMENSION Thank you for allowing us to participate in the care of this patient. Loida Davalos M.D. Impression By: Jayashree Davalos MD Diagnosis, Assessment Plan Diagnosis, Assessment Plan Assessment: 31.6 wks, hx PTB/incompetent cervix, cerclage in place, short cervix. no signs of labor. Cephalic on ultrasound denita weekly will talk w/ dr. tong about dc iron, on stool softeners for now. s/p BMS, kylee. Mg/BMZ 2nd course PRN cont bedrest, monitoring. Plan: continue current managmnt at 1236 RPT #:[id number] END OF REPORT [facility] 2019-07-24 08:03:00 [facility] ([facility]) OB Antepartum Prog Note REPORT#:[id number] REPORT STATUS: Signed DATE:07/24/19 TIME: 08 PATIENT: GRADY EDWARD UNIT #: [id number] ROOM/BED: [address] : 80 AGE: 38 SEX: F ATTEND: Eben Tong MD ADM AUTHOR: Eben Tong MD * ALL edits or amendments must be made on the electronic/computer document * Subjective Subjective Admission EGA (wks/days): 23.1, 31.5 today Patient reports: Patient reports: Yes no complaints, Yes normal movement, No abdominal pain, No vaginal bleeding, No leaking fluid, No contractions Nursing reports: Comments: c/o low back pain Objective Nursing Documentation Review Nursing data: The data set between the solid lines has been imported from nursing documentation. Any exceptions have been noted below under Provider comments. ROM date: ROM time: Labor onset date: Labor onset time: EGA at admit (weeks): Provider comments on imported nursing data: [] VS: Last Documented: Result Date Time B/P Mean 72.0 07/22 2017 Pulse Ox 100 07/22 2017 B/P 97/60 07/22 2017 Pulse 81 07/22 2017 Temp 98.0 07/21 0803 Resp 16 07/21 0803 Vital Signs Date Temp Pulse Resp B/P B/P Mean Pulse Ox FiO2 07/22 81-98 91-97/51-60 66.0-72.0 98-100 Patient Weight Weight (lb): 166 Weight (oz): Weight (kg): 75.296 Membranes: Intact Cervical/ exam: Dilatation (cm): 0 - closed (per last exam ) Effacement (%): 70 Est wt (gms): 683 station: - 3 presentation: transverse (on last sono) Uterine activity: Monitor: toco Frequency (description): irritability Procedures: NST reactive HEENT: normocephalic w/o injury Neuro: Exam: alert, oriented x3 Abdomen: gravid, soft, no abnormal tenderness Uterus: soft, non-tender Baby A: Baby A baseline: 135 bpm Baby A variability: moderate 6-25 bpm Baby A accelerations: 15 X 15 Baby A decelerations: variable Baby A FHR category: category 1 Baby A notes: AGA Diagnosis, Assessment Plan Diagnosis, Assessment Plan Assessment: 31.5 wks, hx PTB/incompetent cervix, cerclage in place, short cervix. no signs of labor. Last 0/-3, CL 0.54cm Transverse on last ultrasound denita weekly will talk w/ dr. tong about dc iron, on stool softeners for now. s/p BMS, kylee. Mg/BMZ 2nd course PRN cont bedrest, monitoring. Plan: continue current managmnt at 0804 [facility] #:[id number] END OF REPORT [facility] 2019-07-23 12:38:00 [facility] ([facility]) OB Antepartum Prog Note REPORT#:[id number] REPORT STATUS: Signed DATE:07/23/19 TIME: 1238 PATIENT: GRADY EDWARD UNIT #: [id number] ROOM/BED: [address] : 80 AGE: 38 SEX: F ATTEND: Eben Tong MD ADM AUTHOR: Lesvia Jamison MD * ALL edits or amendments must be made on the electronic/computer document * Subjective Subjective Admission EGA (wks/days): 23.1, 31.4 today Patient reports: Patient reports: Yes normal movement, No abdominal pain, No vaginal bleeding, No leaking fluid Comments: reports some mild ctx constipation +fm, - lof, - vb, - ctx. Objective Nursing Documentation Review Nursing data: The data set between the solid lines has been imported from nursing documentation. Any exceptions have been noted below under Provider comments. ROM date: ROM time: Labor onset date: Labor onset time: EGA at admit (weeks): Provider comments on imported nursing data: [] VS: Last Documented: Result Date Time B/P Mean 66.0 07/22 0902 Pulse Ox 98 07/22 0902 B/P 91/51 07/22 0902 Pulse 98 07/22 0902 Temp 98.0 07/21 0803 Resp 16 07/21 0803 Vital Signs Date Temp Pulse Resp B/P B/P Mean Pulse Ox FiO2 07/21-07/22 80-98 91-109/51-60 66.0-77.0 98 Patient Weight Weight (lb): 166 Weight (oz): Weight (kg): 75.296 Membranes: Intact Cervical/ exam: Dilatation (cm): 0 - closed (per last exam ) Effacement (%): 70 Est wt (gms): 683 station: - 3 presentation: transverse (on last sono) Uterine activity: Monitor: toco Frequency (description): irritability Procedures: NST reactive HEENT: normocephalic w/o injury Lungs: unlabored breathing Neuro: Exam: alert, oriented x3 Abdomen: gravid, soft, no abnormal tenderness Uterus: soft, non-tender Lower extremities: Edema: none Calf tenderness: negative Baby A: Baby A baseline: 135 bpm Baby A variability: moderate 6-25 bpm Baby A accelerations: 15 X 15 Baby A decelerations: variable Baby A FHR category: category 1 Baby A notes: AGA Diagnosis, Assessment Plan Diagnosis, Assessment Plan Assessment: 31.4 wks, hx PTB/incompetent cervix, cerclage in place, short cervix. no signs of labor. Last 0/-3, CL 0.54cm Transverse on last ultrasound denita weekly will talk w/ dr. tong about dc iron, on stool softeners for now. s/p BMS, kylee. Mg/BMZ 2nd course PRN cont bedrest, monitoring. Plan: continue current managmnt at 1243 RPT #:[id number] END OF REPORT [facility] 2019-07-22 08:08:00 [facility] ([facility]) OB Antepartum Prog Note REPORT#:[id number] REPORT STATUS: Signed DATE:07/22/19 TIME: 807 PATIENT: GRADY EDWARD UNIT #: [id number] ROOM/BED: [address] : 80 AGE: 38 SEX: F ATTEND: Eben Tong MD ADM AUTHOR: Eben Tong MD * ALL edits or amendments must be made on the electronic/computer document * Subjective Subjective Admission EGA (wks/days): 23.1, 31.3 today Patient reports: Patient reports: Yes no complaints, Yes normal movement, No abdominal pain, No vaginal bleeding, No leaking fluid, No contractions Objective Nursing Documentation Review Nursing data: The data set between the solid lines has been imported from nursing documentation. Any exceptions have been noted below under Provider comments. ROM date: ROM time: Labor onset date: Labor onset time: EGA at admit (weeks): Provider comments on imported nursing data: [] VS: Last Documented: Result Date Time B/P Mean 76.0 07/20 2022 B/P 105/60 05/29 2023 Pulse 82 07/20 2022 Pulse Ox 98 07/20 08 Temp 97.7 07/18 2127 Resp 20 07/18 2127 Vital Signs Date Temp Pulse Resp B/P B/P Mean Pulse Ox FiO2 07/20 82-95 104-105/55-60 72.0-76.0 98 Patient Weight Weight (lb): 166 Weight (oz): Weight (kg): 75.296 Membranes: Intact Cervical/ exam: Dilatation (cm): 0 - closed (per last exam ) Effacement (%): 70 Est wt (gms): 683 station: - 3 presentation: transverse (on last sono) Uterine activity: Monitor: toco Frequency (description): irritability Procedures: NST reactive HEENT: normocephalic w/o injury Neuro: Exam: alert, oriented x3 Abdomen: gravid, soft, no abnormal tenderness Uterus: soft, non-tender Lower extremities: Edema: none Calf tenderness: negative Baby A: Baby A baseline: 140 bpm Baby A variability: moderate 6-25 bpm Baby A accelerations: 15 X 15 Baby A decelerations: variable Baby A FHR category: category 1 Baby A notes: AGA Diagnosis, Assessment Plan Diagnosis, Assessment Plan Assessment: 31.3 wks, hx PTB/incompetent cervix, cerclage in place, short cervix. no signs of labor. s/p BMS, kylee. cont bedrest, monitoring. [place] weekly Plan: continue current managmnt at 0809 RPT #:[id number] END OF REPORT [facility] 2019-07-21 12:31:00 [facility] ([facility]) OB Antepartum Prog Note REPORT#:[id number] REPORT STATUS: Signed DATE:07/21/19 TIME: 1231 PATIENT: GRADY EDWARD UNIT #: [id number] ROOM/BED: [facility]-A : 80 AGE: 38 SEX: F ATTEND: Eben Tong MD ADM AUTHOR: Eben Tong MD * ALL edits or amendments must be made on the electronic/computer document * Subjective Subjective Admission EGA (wks/days): 23.1, 31.2 today Patient reports: Patient reports: Yes no complaints, Yes normal movement, No abdominal pain, No vaginal bleeding, No leaking fluid, No contractions Objective Nursing Documentation Review Nursing data: The data set between the solid lines has been imported from nursing documentation. Any exceptions have been noted below under Provider comments. ROM date: ROM time: Labor onset date: Labor onset time: EGA at admit (weeks): Provider comments on imported nursing data: [] VS: Last Documented: Result Date Time B/P Mean 72.0 07/20 0814 Pulse Ox 98 07/20 0814 B/P 104/55 07/20 0814 Pulse 95 07/20 0814 Temp 97.7 07/17 2128 Resp 20 07/17 212 Vital Signs Date Temp Pulse Resp B/P B/P Mean Pulse Ox FiO2 07/19-07/20 88-95 104-111/55-69 72.0-84.0 98 Patient Weight Weight (lb): 166 Weight (oz): Weight (kg): 75.296 Membranes: Intact Cervical/ exam: Dilatation (cm): 0 - closed (per last exam ) Effacement (%): 70 Est wt (gms): 683 station: - 3 presentation: transverse (on last sono) Uterine activity: Monitor: toco Frequency (description): irritability Procedures: NST reactive HEENT: normocephalic w/o injury Neuro: Exam: alert, oriented x3 Abdomen: gravid, soft, no abnormal tenderness Uterus: soft, non-tender Baby A: Baby A baseline: 140 bpm Baby A variability: moderate 6-25 bpm Baby A accelerations: 15 X 15 Baby A decelerations: variable Baby A FHR category: category 1 Baby A notes: AGA Diagnosis, Assessment Plan Diagnosis, Assessment Plan Assessment: 31.2 wks, hx PTB/incompetent cervix, cerclage in place, short cervix. no signs of labor. s/p BMS, kylee. cont bedrest, monitoring. [place] weekly Plan: continue current managmnt at 1232 RPT #:[id number] END OF REPORT [facility] 2019-07-20 12:25:00 [facility] OB Antepartum Prog Note REPORT#:[id number] REPORT STATUS: Signed DATE:07/20/19 TIME: 1225 PATIENT: GRADY EDWARD UNIT #: [id number] ROOM/BED: [address] : 80 AGE: 38 SEX: F ATTEND: Eben Tong MD ADM AUTHOR: Eben Tong MD * ALL edits or amendments must be made on the electronic/computer document * Subjective Subjective Admission EGA (wks/days): 23.1, 31.1 today Patient reports: Patient reports: Yes no complaints, Yes normal movement, No abdominal pain, No vaginal bleeding, No leaking fluid, No contractions Objective Nursing Documentation Review Nursing data: The data set between the solid lines has been imported from nursing documentation. Any exceptions have been noted below under Provider comments. ROM date: ROM time: Labor onset date: Labor onset time: EGA at admit (weeks): Provider comments on imported nursing data: [] VS: Last Documented: Result Date Time B/P Mean 77.0 07/19 0845 B/P 105/61 07/19 0845 Pulse 105 07/19 0845 Pulse Ox 98 07/19 0844 Temp 97.7 07/18 2127 Resp 20 07/18 2127 Vital Signs Date Temp Pulse Resp B/P B/P Mean Pulse Ox FiO2 07/18-07/19 78-105 98-105/57-61 73.0-77.0 98 Patient Weight Weight (lb): 166 Weight (oz): Weight (kg): 75.296 Membranes: Intact Cervical/ exam: Dilatation (cm): 0 - closed (per last exam ) Effacement (%): 70 Est wt (gms): 683 station: - 3 presentation: transverse (on last sono) Uterine activity: Monitor: toco Frequency (description): irritability Procedures: NST reactive HEENT: normocephalic w/o injury Neuro: Exam: alert, oriented x3 Abdomen: gravid, soft, no abnormal tenderness Uterus: soft, non-tender Baby A: Baby A baseline: 140 bpm Baby A variability: moderate 6-25 bpm Baby A accelerations: 15 X 15 Baby A decelerations: variable Baby A FHR category: category 1 Baby A notes: AGA Diagnosis, Assessment Plan Diagnosis, Assessment Plan Assessment: 31.1 wks, hx PTB/incompetent cervix, cerclage in place, short cervix. no signs of labor. s/p BMS, kylee. cont bedrest, monitoring. [place] weekly Plan: continue current managmnt at 1225 [facility] #:[phone] END OF REPORT [facility] 2019-07-19 07:37:00 [facility] ([facility]) OB Antepartum Prog Note REPORT#:[id number] REPORT STATUS: Signed DATE:07/19/19 TIME: 0737 PATIENT: GRADY EDWARD UNIT #: [id number] ROOM/BED: [address] : 80 AGE: 38 SEX: F ATTEND: Eben Tong MD ADM AUTHOR: Eben Tong MD * ALL edits or amendments must be made on the electronic/computer document * Subjective Subjective Admission EGA (wks/days): 23.1, 31.0 today Patient reports: Patient reports: Yes no complaints, Yes normal movement, No abdominal pain, No vaginal bleeding, No leaking fluid, No contractions Objective Nursing Documentation Review Nursing data: The data set between the solid lines has been imported from nursing documentation. Any exceptions have been noted below under Provider comments. ROM date: ROM time: Labor onset date: Labor onset time: EGA at admit (weeks): Provider comments on imported nursing data: [] VS: Last Documented: Result Date Time B/P Mean 72.0 07/18 2127 B/P 98/59 07/18 2127 Temp 97.7 07/18 2127 Pulse 87 07/18 2127 Resp 20 07/18 2127 Pulse Ox 100 07/16 0757 Vital Signs Date Temp Pulse Resp B/P B/P Mean Pulse Ox FiO2 07/17 97.7 87-94 20 97-98/58-59 71.0-72.0 Patient Weight Weight (lb): 166 Weight (oz): Weight (kg): 75.296 Membranes: Intact Cervical/ exam: Dilatation (cm): 0 - closed (per last exam ) Effacement (%): 70 Est wt (gms): 683 station: - 3 presentation: transverse (on last sono) Uterine activity: Monitor: toco Frequency (description): irritability Procedures: NST reactive HEENT: normocephalic w/o injury Neuro: Exam: alert, oriented x3 Abdomen: gravid, soft, no abnormal tenderness Uterus: soft, non-tender Baby A: Baby A baseline: 140 bpm Baby A variability: moderate 6-25 bpm Baby A accelerations: 15 X 15 Baby A decelerations: variable Baby A FHR category: category 1 Baby A notes: AGA Diagnosis, Assessment Plan Diagnosis, Assessment Plan Assessment: 31.0 wks, hx PTB/incompetent cervix, cerclage in place, short cervix. no signs of labor. s/p BMS, kylee. cont bedrest, monitoring. [place] weekly Plan: continue current managmnt at 0738 RPT #:[id number] END OF REPORT [facility] 2019-07-18 07:41:00 [facility] ([facility]) OB Antepartum Prog Note REPORT#:[id number] REPORT STATUS: Signed DATE:07/18/19 TIME: 07 PATIENT: GRADY EDWARD UNIT #: [id number] ROOM/BED: 5078-A : 80 AGE: 38 SEX: F ATTEND: Eben Tong MD ADM AUTHOR: Eben Tong MD * ALL edits or amendments must be made on the electronic/computer document * Subjective Subjective Admission EGA (wks/days): 23.1, 30.6 today Patient reports: Patient reports: Yes no complaints, Yes normal movement, No abdominal pain, No vaginal bleeding, No leaking fluid, No contractions Objective Nursing Documentation Review Nursing data: The data set between the solid lines has been imported from nursing documentation. Any exceptions have been noted below under Provider comments. ROM date: ROM time: Labor onset date: Labor onset time: EGA at admit (weeks): Provider comments on imported nursing data: [] VS: Last Documented: Result Date Time B/P Mean 70.0 07/17 2031 B/P 94/55 07/17 2031 Temp 97.7 07/17 2031 Pulse 86 07/17 2031 Resp 20 07/17 2031 Pulse Ox 100 07/16 0757 Vital Signs Date Temp Pulse Resp B/P B/P Mean Pulse Ox FiO2 07/16 97.7 83-89 20 94-102/55-60 70.0-74.0 100 Patient Weight Weight (lb): 166 Weight (oz): Weight (kg): 75.296 Membranes: Intact Cervical/ exam: Dilatation (cm): 0 - closed (per last exam ) Effacement (%): 70 Est wt (gms): 683 station: - 3 presentation: transverse (on last sono) Uterine activity: Monitor: toco Frequency (description): irritability Procedures: NST reactive HEENT: normocephalic w/o injury Neuro: Exam: alert, oriented x3 Abdomen: gravid, soft, no abnormal tenderness Uterus: soft, non-tender Baby A: Baby A baseline: 140 bpm Baby A variability: moderate 6-25 bpm Baby A accelerations: 15 X 15 Baby A decelerations: variable Baby A FHR category: category 1 Baby A notes: AGA Diagnosis, Assessment Plan Diagnosis, Assessment Plan Assessment: 30.6 wks, hx PTB/incompetent cervix, cerclage in place, short cervix. no signs of labor. s/p BMS, kylee. cont bedrest, monitoring. [place] weekly Plan: continue current managmnt at 0742 RPT #:[id number] END OF REPORT [facility] 2019-07-17 09:54:00 [facility] ([facility]) OB Antepartum Prog Note REPORT#:[id number] REPORT STATUS: Signed DATE:07/17/19 TIME: 09 PATIENT: GRADY EDWARD UNIT #: [id number] ROOM/BED: [facility]-A : 80 AGE: 38 SEX: F ATTEND: Eben Tong MD ADM AUTHOR: Bg Leblanc Jr, MD * ALL edits or amendments must be made on the electronic/computer document * Subjective Subjective Admission EGA (wks/days): 23.1, 30.5 today Patient reports: Comments: reports some mild ctx last night Nursing reports: Comments: c/o low back pain Objective Nursing Documentation Review Nursing data: The data set between the solid lines has been imported from nursing documentation. Any exceptions have been noted below under Provider comments. ROM date: ROM time: Labor onset date: Labor onset time: EGA at admit (weeks): Provider comments on imported nursing data: [] VS: Last Documented: Result Date Time B/P Mean 74.0 07/16 0758 B/P 102/60 07/16 0758 Pulse 83 07/16 0758 Pulse Ox 100 07/16 0757 Temp 98.3 07/15 2036 Resp 18 07/15 203 Vital Signs Date Temp Pulse Resp B/P B/P Mean Pulse Ox FiO2 07/15-07/16 98.3 83-89 18 97-102/55-60 73.0-74.0 100 Patient Weight Weight (lb): 166 Weight (oz): Weight (kg): 75.296 Membranes: Intact Cervical/ exam: Dilatation (cm): 0 - closed (per last exam ) Effacement (%): 70 Est wt (gms): 683 station: - 3 presentation: transverse (on last sono) Uterine activity: Monitor: toco Frequency (description): irritability Procedures: NST reactive HEENT: normocephalic w/o injury Lungs: unlabored breathing Neuro: Exam: alert, oriented x3 Abdomen: gravid, soft, no abnormal tenderness Uterus: soft, non-tender Lower extremities: Edema: none Calf tenderness: negative Baby A: Baby A baseline: 135 bpm Baby A variability: moderate 6-25 bpm Baby A accelerations: 15 X 15 Baby A decelerations: variable Baby A FHR category: category 1 Baby A notes: AGA Diagnosis, Assessment Plan Diagnosis, Assessment Plan Free Text A P: 30.5 wks, hx PTB/incompetent cervix, cerclage in place, short cervix. no signs of labor. s/p BMS, kylee. cont bedrest, monitoring. [place] weekly Plan: continue current managmnt at 0956 RPT #:[id number] END OF REPORT [facility] 2019-07-16 08:05:00 [facility] ([facility]) OB Antepartum Prog Note REPORT#:[id number] REPORT STATUS: Signed DATE:07/16/19 TIME: 804 PATIENT: GRADY EDWARD UNIT #: [id number] ROOM/BED: [facility] : 80 AGE: 38 SEX: F ATTEND: Eben Tong MD ADM AUTHOR: Eben Tong MD * ALL edits or amendments must be made on the electronic/computer document * Subjective Subjective Admission EGA (wks/days): 23.1, 30.4 today Patient reports: Patient reports: Yes no complaints, Yes vaginal bleeding, Yes leaking fluid Objective Nursing Documentation Review Nursing data: The data set between the solid lines has been imported from nursing documentation. Any exceptions have been noted below under Provider comments. ROM date: ROM time: Labor onset date: Labor onset time: EGA at admit (weeks): Provider comments on imported nursing data: [] VS: Last Documented: Result Date Time B/P Mean 67.0 07/15 0752 B/P 92/53 07/15 0752 Pulse 92 07/15 0752 Temp 98.1 07/14 0825 Resp 16 07/14 0825 Pulse Ox 100 07/08 1104 Vital Signs Date Temp Pulse Resp B/P B/P Mean Pulse Ox FiO2 07/14-07/15 98.1 81-92 16 92-111/51-66 67.0-80.0 Patient Weight Weight (lb): 166 Weight (oz): Weight (kg): 75.296 Membranes: Intact Cervical/ exam: Dilatation (cm): 0 - closed (per last exam ) Effacement (%): 70 Est wt (gms): 683 station: - 3 presentation: transverse (on last sono) Uterine activity: Monitor: toco Frequency (description): irritability Procedures: NST reactive HEENT: normocephalic w/o injury Neuro: Exam: alert, oriented x3 Abdomen: gravid, soft, no abnormal tenderness Uterus: soft, non-tender Baby A: Baby A baseline: 135 bpm Baby A variability: moderate 6-25 bpm Baby A accelerations: 15 X 15 Baby A decelerations: variable Baby A FHR category: category 1 Baby A notes: AGA Diagnosis, Assessment Plan Diagnosis, Assessment Plan Assessment: 30.4 wks, hx PTB/incompetent cervix, cerclage in place, short cervix. no signs of labor. s/p BMS, kylee. cont bedrest, monitoring. [place] weekly Plan: continue current managmnt at 0807 RPT #:[id number] END OF REPORT [facility] 2019-07-15 13:36:00 [facility] ([facility]) OB Antepartum Prog Note REPORT#:[id number] REPORT STATUS: Signed DATE:07/15/19 TIME: 1335 PATIENT: GRADY EDWARD UNIT #: [id number] ROOM/BED: [address] : 80 AGE: 38 SEX: F ATTEND: Eben Tong MD ADM AUTHOR: Eben Tong MD * ALL edits or amendments must be made on the electronic/computer document * Subjective Subjective Admission EGA (wks/days): 23.1, 30.3 today Patient reports: Patient reports: Yes no complaints, Yes normal movement, No abdominal pain, No vaginal bleeding, No leaking fluid, No contractions Objective Nursing Documentation Review Nursing data: The data set between the solid lines has been imported from nursing documentation. Any exceptions have been noted below under Provider comments. ROM date: ROM time: Labor onset date: Labor onset time: EGA at admit (weeks): Provider comments on imported nursing data: [] VS: Last Documented: Result Date Time B/P Mean 73.0 07/14 0825 B/P 100/51 07/14 0825 Temp 98.1 07/14 0825 Pulse 88 07/14 0825 Resp 16 07/14 0825 Pulse Ox 100 07/08 1104 Vital Signs Date Temp Pulse Resp B/P B/P Mean Pulse Ox FiO2 07/13-07/14 98.1 88-91 16 95-100/51 66.0-73.0 Patient Weight Weight (lb): 166 Weight (oz): Weight (kg): 75.296 Membranes: Intact Cervical/ exam: Dilatation (cm): 0 - closed (per last exam ) Effacement (%): 70 Est wt (gms): 683 station: - 3 presentation: transverse (on last sono) Uterine activity: Monitor: toco Frequency (description): irritability Procedures: NST reactive HEENT: normocephalic w/o injury Neuro: Exam: alert, oriented x3 Abdomen: gravid, soft, no abnormal tenderness Uterus: soft, non-tender Baby A: Baby A baseline: 135 bpm Baby A variability: moderate 6-25 bpm Baby A accelerations: 15 X 15 Baby A decelerations: variable Baby A FHR category: category 1 Baby A notes: AGA Diagnosis, Assessment Plan Diagnosis, Assessment Plan Assessment: 30.3 wks, hx PTB/incompetent cervix, cerclage in place, short cervix. no signs of labor. s/p BMS, kylee. cont bedrest, monitoring. [place] weekly Plan: continue current managmnt at 1336 RPT #:[id number] END OF REPORT [facility] 2019-07-14 08:00:00 [facility] ([facility]) OB Antepartum Prog Note REPORT#:[id number] REPORT STATUS: Signed DATE:07/14/19 TIME: 0800 PATIENT: GRADY EDWARD UNIT #: [id number] ROOM/BED: [facility] : 80 AGE: 38 SEX: F ATTEND: Eben Tong MD ADM AUTHOR: Eben Tong MD * ALL edits or amendments must be made on the electronic/computer document * Subjective Subjective Admission EGA (wks/days): 23.1, 30.2 today Patient reports: Patient reports: Yes normal movement, No abdominal pain, No vaginal bleeding, No leaking fluid Comments: reports some mild ctx last night Objective Membranes: Intact Cervical/ exam: Dilatation (cm): 0 - closed (per last exam ) Effacement (%): 70 Est wt (gms): 683 station: - 3 presentation: transverse (on last sono) Uterine activity: Monitor: toco Frequency (description): irritability Procedures: NST reactive HEENT: normocephalic w/o injury Neuro: Exam: alert, oriented x3 Abdomen: gravid, soft, no abnormal tenderness Uterus: soft, non-tender Baby A: Baby A baseline: 135 bpm Baby A variability: moderate 6-25 bpm Baby A accelerations: 15 X 15 Baby A decelerations: variable Baby A FHR category: category 1 Baby A notes: AGA Diagnosis, Assessment Plan Diagnosis, Assessment Plan Assessment: 30.1 wks, hx PTB/incompetent cervix, cerclage in place, short cervix. no signs of labor. s/p BMS, kylee. cont bedrest, monitoring. [place] weekly Plan: continue current managmnt at 0801 RPT #:[id number] END OF REPORT [facility] 2019-07-13 15:27:00 [facility] ([facility]) OB Antepartum Prog Note REPORT#:[id number] REPORT STATUS: Signed DATE:07/13/19 TIME: 1526 PATIENT: GRADY EDWARD UNIT #: [id number] ROOM/BED: [address] : 80 AGE: 38 SEX: F ATTEND: Eben Tong MD ADM AUTHOR: Eben Tong MD * ALL edits or amendments must be made on the electronic/computer document * Subjective Subjective Admission EGA (wks/days): 23.1, 30.1 today Patient reports: Patient reports: Yes no complaints, Yes normal movement, No abdominal pain, No vaginal bleeding, No leaking fluid, No contractions Objective Nursing Documentation Review Nursing data: The data set between the solid lines has been imported from nursing documentation. Any exceptions have been noted below under Provider comments. ROM date: ROM time: Labor onset date: Labor onset time: EGA at admit (weeks): Provider comments on imported nursing data: [] VS: Last Documented: Result Date Time B/P Mean 78.0 07/12 0934 B/P 106/58 07/12 0934 Pulse 96 07/12 0934 Pulse Ox 100 07/08 1104 Temp 97.9 07/02 2009 Resp 18 07/02 2009 Vital Signs Date Temp Pulse Resp B/P B/P Mean Pulse Ox FiO2 07/11-07/12 85-96 96-106/51-58 67.0-78.0 Patient Weight Weight (lb): 166 Weight (oz): Weight (kg): 75.296 Membranes: Intact Cervical/ exam: Dilatation (cm): 0 - closed (per last exam ) Effacement (%): 70 Est wt (gms): 683 station: - 3 presentation: transverse (on last sono) Uterine activity: Monitor: toco Frequency (description): irritability Procedures: NST reactive HEENT: normocephalic w/o injury Neuro: Exam: alert, oriented x3 Abdomen: gravid, soft, no abnormal tenderness Uterus: soft, non-tender Baby A: Baby A baseline: 135 bpm Baby A variability: moderate 6-25 bpm Baby A accelerations: 15 X 15 Baby A decelerations: variable Baby A FHR category: category 1 Baby A notes: AGA Diagnosis, Assessment Plan Diagnosis, Assessment Plan Assessment: 30.1 wks, hx PTB/incompetent cervix, cerclage in place, short cervix. no signs of labor. s/p BMS, kylee. cont bedrest, monitoring. [place] weekly Plan: continue current managmnt at 1528 [facility] #:[phone] END OF REPORT [facility] 2019-07-12 11:50:00 [facility] ([facility]) OB Antepartum Prog Note REPORT#:[id number] REPORT STATUS: Signed DATE:07/12/19 TIME: 1150 PATIENT: GRADY EDWARD UNIT #: [id number] ROOM/BED: [address] : 80 AGE: 38 SEX: F ATTEND: Eben Tong MD ADM AUTHOR: Eben Tong MD * ALL edits or amendments must be made on the electronic/computer document * Subjective Subjective Admission EGA (wks/days): 23.1, 30.0 today Patient reports: Patient reports: Yes no complaints, Yes normal movement, No abdominal pain, No vaginal bleeding, No leaking fluid, No contractions Objective Nursing Documentation Review Nursing data: The data set between the solid lines has been imported from nursing documentation. Any exceptions have been noted below under Provider comments. ROM date: ROM time: Labor onset date: Labor onset time: EGA at admit (weeks): Provider comments on imported nursing data: [] VS: Last Documented: Result Date Time B/P Mean 67.0 07/11 0832 B/P 96/51 07/11 0832 Pulse 88 07/11 0832 Pulse Ox 100 07/08 1104 Temp 97.9 07/02 2009 Resp 18 07/02 2009 Vital Signs Date Temp Pulse Resp B/P B/P Mean Pulse Ox FiO2 07/10-07/11 88-91 96-101/51-59 67.0-76.0 Patient Weight Weight (lb): 166 Weight (oz): Weight (kg): 75.296 Membranes: Intact Cervical/ exam: Dilatation (cm): 0 - closed (per last exam ) Effacement (%): 70 Est wt (gms): 683 station: - 3 presentation: transverse (on last sono) Uterine activity: Monitor: toco Frequency (description): irritability Procedures: NST reactive HEENT: normocephalic w/o injury Neuro: Exam: alert, oriented x3 Abdomen: gravid, soft, no abnormal tenderness Uterus: soft, non-tender Baby A: Baby A baseline: 135 bpm Baby A variability: moderate 6-25 bpm Baby A accelerations: 15 X 15 Baby A decelerations: variable Baby A FHR category: category 1 Baby A notes: AGA Diagnosis, Assessment Plan Diagnosis, Assessment Plan Assessment: 30.0 wks, hx PTB/incompetent cervix, cerclage in place, short cervix. no signs of labor. s/p BMS, kylee. cont bedrest, monitoring. [place] weekly Plan: continue current managmnt at 1151 RPT #:[id number] END OF REPORT [facility] 2019-07-11 07:38:00 [facility] ([facility]) OB Antepartum Prog Note REPORT#:[id number] REPORT STATUS: Signed DATE:07/11/19 TIME: 0738 PATIENT: GRADY EDWARD UNIT #: [id number] ROOM/BED: 5078-A : 80 AGE: 38 SEX: F ATTEND: Eben Tong MD ADM AUTHOR: Eben Tong MD * ALL edits or amendments must be made on the electronic/computer document * Subjective Subjective Admission EGA (wks/days): 23.1, 29.6 today Patient reports: Patient reports: Yes no complaints, Yes normal movement, No abdominal pain, No vaginal bleeding, No leaking fluid, No contractions Objective Nursing Documentation Review Nursing data: The data set between the solid lines has been imported from nursing documentation. Any exceptions have been noted below under Provider comments. ROM date: ROM time: Labor onset date: Labor onset time: EGA at admit (weeks): Provider comments on imported nursing data: [] VS: Last Documented: Result Date Time B/P Mean 74.0 07/09 2058 B/P 103/58 07/09 2058 Pulse 85 07/09 2058 Pulse Ox 100 07/08 1104 Temp 97.9 07/02 2009 Resp 18 07/02 2009 Vital Signs Date Temp Pulse Resp B/P B/P Mean Pulse Ox FiO2 07/09 85-93 98-103/55-58 73.0-74.0 Patient Weight Weight (lb): 166 Weight (oz): Weight (kg): 75.296 Membranes: Intact Cervical/ exam: Dilatation (cm): 0 - closed (per last exam ) Effacement (%): 70 Est wt (gms): 683 station: - 3 presentation: transverse (on last sono) Uterine activity: Monitor: toco Frequency (description): irritability Procedures: NST reactive HEENT: normocephalic w/o injury Neuro: Exam: alert, oriented x3 Abdomen: gravid, soft, no abnormal tenderness Uterus: soft, non-tender Baby A: Baby A baseline: 135 bpm Baby A variability: moderate 6-25 bpm Baby A accelerations: 15 X 15 Baby A decelerations: variable Baby A FHR category: category 1 Baby A notes: AGA Diagnosis, Assessment Plan Diagnosis, Assessment Plan Assessment: 29.6 wks, hx PTB/incompetent cervix, cerclage in place, short cervix. no signs of labor. s/p BMS, kylee. cont bedrest, monitoring. [place] weekly Plan: continue current managmnt at 0739 RPT #:[id number] END OF REPORT [facility] 2019-07-10 07:19:00 [facility] ([facility]) OB Antepartum Prog Note REPORT#:[id number] REPORT STATUS: Signed DATE:07/10/19 TIME: 718 PATIENT: GRADY EDWARD UNIT #: [id number] [address] AGE: 38 SEX: F ATTEND: Eben Tong MD ADM AUTHOR: Eben Tong MD * ALL edits or amendments must be made on the electronic/computer document * Subjective Subjective Admission EGA (wks/days): 23.1, 29.5 today Patient reports: Patient reports: Yes no complaints, Yes normal movement, No abdominal pain, No vaginal bleeding, No leaking fluid, No contractions Objective Nursing Documentation Review Nursing data: The data set between the solid lines has been imported from nursing documentation. Any exceptions have been noted below under Provider comments. ROM date: ROM time: Labor onset date: Labor onset time: EGA at admit (weeks): Provider comments on imported nursing data: [] VS: Last Documented: Result Date Time B/P Mean 68.0 07/08 2057 B/P 95/53 07/08 2057 Pulse 87 07/08 2057 Pulse Ox 100 07/08 1104 Temp 97.9 07/02 2009 Resp 18 07/02 2009 Vital Signs Date Temp Pulse Resp B/P B/P Mean Pulse Ox FiO2 07/08 81-87 93-95/53-61 68.0-72.0 100 Patient Weight Weight (lb): 166 Weight (oz): Weight (kg): 75.296 Membranes: Intact Cervical/ exam: Dilatation (cm): 0 - closed (per last exam ) Effacement (%): 70 Est wt (gms): 683 station: - 3 presentation: transverse (on last sono) Uterine activity: Monitor: toco Frequency (description): irritability Procedures: NST reactive HEENT: normocephalic w/o injury Neuro: Exam: alert, oriented x3 Abdomen: gravid, soft, no abnormal tenderness Uterus: soft, non-tender Baby A: Baby A baseline: 135 bpm Baby A variability: moderate 6-25 bpm Baby A accelerations: 15 X 15 Baby A decelerations: variable Baby A FHR category: category 1 Baby A notes: AGA Diagnosis, Assessment Plan Diagnosis, Assessment Plan Assessment: 29.5 wks, hx PTB/incompetent cervix, cerclage in place, short cervix. no signs of labor. s/p BMS, kylee. cont bedrest, monitoring. [place] weekly Plan: continue current managmnt at 0720 RPT #:[id number] END OF REPORT [facility] 2019-07-09 16:19:00 [facility] ([facility]) OB Antepartum Prog Note REPORT#:[id number] REPORT STATUS: Signed DATE:07/09/19 TIME: 1619 PATIENT: GRADY EDWARD UNIT #: [id number] ROOM/BED: [address] : 80 AGE: 38 SEX: F ATTEND: Eben Tong MD ADM AUTHOR: Kamilla Esquivel MD * ALL edits or amendments must be made on the electronic/computer document * Subjective Subjective Admission EGA (wks/days): 23.1, 29.4today Patient reports: Patient reports: Yes normal movement, No no complaints, No vaginal bleeding, No leaking fluid, No contractions Objective Nursing Documentation Review Nursing data: The data set between the solid lines has been imported from nursing documentation. Any exceptions have been noted below under Provider comments. ROM date: ROM time: Labor onset date: Labor onset time: EGA at admit (weeks): Provider comments on imported nursing data: [] VS: Last Documented: Result Date Time B/P Mean 72.0 07/08 1104 Pulse Ox 100 07/08 1104 B/P 93/61 07/08 1104 Pulse 81 07/08 1104 Temp 97.9 07/02 2009 Resp 18 07/02 2009 Vital Signs Date Temp Pulse Resp B/P B/P Mean Pulse Ox FiO2 07/07-07/08 81-83 93-96/54-61 70.0-72.0 100 Patient Weight Weight (lb): 166 Weight (oz): Weight (kg): 75.296 Membranes: Intact Cervical/ exam: Dilatation (cm): 0 - closed (per last exam ) Uterine activity: Monitor: toco Frequency (description): irritability Procedures: NST reactive Neuro: Exam: alert, oriented x3 Abdomen: gravid, soft, no abnormal tenderness Lower extremities: Edema: none Calf tenderness: negative Baby A: Baby A baseline: 135 bpm Baby A variability: moderate 6-25 bpm Baby A accelerations: 15 X 15 Baby A decelerations: variable Baby A FHR category: category 1 Baby A notes: AGA Diagnosis, Assessment Plan Diagnosis, Assessment Plan Assessment: 29.4 wks, hx PTB/incompetent cervix, cerclage in place, short cervix. no signs of labor. s/p BMS, kylee. cont bedrest, monitoring. [place] weekly Plan: continue current managmnt Plan discussed with: patient at 1622 RPT #:[id number] END OF REPORT [facility] 2019-07-08 14:09:00 [facility] ([facility]) OB Antepartum Prog Note REPORT#:[id number] REPORT STATUS: Signed DATE:07/08/19 TIME: 1409 PATIENT: GRADY EDWARD UNIT #: [id number] ROOM/BED: [facility]-A : 80 AGE: 38 SEX: F ATTEND: Eben Tong MD ADM AUTHOR: Joana Forrester MD * ALL edits or amendments must be made on the electronic/computer document * Subjective Subjective Patient reports: Patient reports: Yes normal movement, No no complaints, No abdominal pain, No vaginal bleeding, No leaking fluid, No contractions Comments: 29.3 Objective Nursing Documentation Review Nursing data: The data set between the solid lines has been imported from nursing documentation. Any exceptions have been noted below under Provider comments. ROM date: ROM time: Labor onset date: Labor onset time: EGA at admit (weeks): Provider comments on imported nursing data: [] VS: Last Documented: Result Date Time B/P Mean 70.0 07/07 1343 B/P 98/55 07/07 1343 Pulse 89 07/07 1343 Pulse Ox 99 07/02 2009 Temp 97.9 07/02 2009 Resp 18 07/02 2009 Vital Signs Date Temp Pulse Resp B/P B/P Mean Pulse Ox FiO2 07/06-07/07 81-93 88-98/52-58 65.0-71.0 Patient Weight Weight (lb): 166 Weight (oz): Weight (kg): 75.296 Membranes: Intact Uterine activity: Monitor: toco Frequency (description): irritability Abdomen: gravid, soft, no abnormal tenderness Baby A: Baby A baseline: 150 bpm Baby A variability: moderate 6-25 bpm Baby A accelerations: 10 X 10 Baby A decelerations: variable Baby A FHR category: category 1 Diagnosis, Assessment Plan Diagnosis, Assessment Plan Free Text A P: siup at 29.3 inc cx no evid PPROM reassuring mat/ status continue bed rest at 1411 RPT #:[id number] END OF REPORT [facility] 2019-07-08 14:09:00 [facility] ([facility]) OB Antepartum Prog Note REPORT#:[id number] REPORT STATUS: Signed DATE:07/08/19 TIME: 1409 PATIENT: GRADY EDWARD UNIT #: [id number] ROOM/BED: [facility] : 80 AGE: 38 SEX: F ATTEND: Eben Tong MD ADM AUTHOR: Joana Forrester MD * ALL edits or amendments must be made on the electronic/computer document * See Addendum Subjective Subjective Patient reports: Patient reports: Yes normal movement, No no complaints, No abdominal pain, No vaginal bleeding, No leaking fluid, No contractions Comments: 29.3 Objective Nursing Documentation Review Nursing data: The data set between the solid lines has been imported from nursing documentation. Any exceptions have been noted below under Provider comments. ROM date: ROM time: Labor onset date: Labor onset time: EGA at admit (weeks): Provider comments on imported nursing data: [] VS: Last Documented: Result Date Time B/P Mean 70.0 07/07 1343 B/P 98/55 07/07 1343 Pulse 89 07/07 1343 Pulse Ox 99 07/02 2009 Temp 97.9 07/02 2009 Resp 18 07/02 2009 Vital Signs Date Temp Pulse Resp B/P B/P Mean Pulse Ox FiO2 07/06-07/07 81-93 88-98/52-58 65.0-71.0 Patient Weight Weight (lb): 166 Weight (oz): Weight (kg): 75.296 Membranes: Intact Uterine activity: Monitor: toco Frequency (description): irritability Abdomen: gravid, soft, no abnormal tenderness Baby A: Baby A baseline: 150 bpm Baby A variability: moderate 6-25 bpm Baby A accelerations: 10 X 10 Baby A decelerations: variable Baby A FHR category: category 1 Diagnosis, Assessment Plan Diagnosis, Assessment Plan Free Text A P: siup at 29.3 inc cx no evid PPROM reassuring mat/ status continue bed rest at 1411 Addendum 1: 07/08/19 1412 by Joana Forrester MD correction: fht: 130's w/accels; no decels; no contractions at 1413 RPT #:[id number] END OF REPORT [facility] 2019-07-07 12:20:00 [facility] ([facility]) OB Antepartum Prog Note REPORT#:[id number] REPORT STATUS: Signed DATE:07/07/19 TIME: 1220 PATIENT: GRADY EDWARD UNIT #: [id number] [address] AGE: 38 SEX: F ATTEND: Eben Tong MD ADM AUTHOR: Eben Tong MD * ALL edits or amendments must be made on the electronic/computer document * Subjective Subjective Admission EGA (wks/days): 23.1, 29.2 today Patient reports: Patient reports: Yes no complaints, Yes normal movement, No abdominal pain, No vaginal bleeding, No leaking fluid, No contractions Objective Nursing Documentation Review Nursing data: The data set between the solid lines has been imported from nursing documentation. Any exceptions have been noted below under Provider comments. ROM date: ROM time: Labor onset date: Labor onset time: EGA at admit (weeks): Provider comments on imported nursing data: [] VS: Last Documented: Result Date Time B/P Mean 69.0 07/06 0926 B/P 92/57 07/06 0926 Pulse 86 07/06 0926 Pulse Ox 99 07/02 2009 Temp 97.9 07/02 2009 Resp 18 07/02 2009 Vital Signs Date Temp Pulse Resp B/P B/P Mean Pulse Ox FiO2 /-07/06 81-86 92/51-57 66.0-69.0 Patient Weight Weight (lb): 166 Weight (oz): Weight (kg): 75.296 Membranes: Intact Cervical/ exam: Dilatation (cm): 0 - closed Effacement (%): 70 Est wt (gms): 683 station: - 3 presentation: transverse (on last sono) Uterine activity: Monitor: toco Frequency (description): irritability Procedures: non stress test HEENT: normocephalic w/o injury Neuro: Exam: alert, oriented x3 Abdomen: gravid, soft, no abnormal tenderness, no guarding, no rebound tenderness Uterus: soft, non-tender Baby A: Baby A baseline: 140 bpm Baby A variability: moderate 6-25 bpm Baby A accelerations: 10 X 10 Baby A decelerations: none Baby A FHR category: category 1 Baby A notes: AGA Diagnosis, Assessment Plan Diagnosis, Assessment Plan Assessment: 29.2 wks, hx PTB/incompetent cervix, cerclage in place, short cervix. no signs of labor. s/p BMS, kylee. cont bedrest, monitoring. [place] weekly Plan: continue current managmnt at 1220 RPT #:[id number] END OF REPORT [facility] 2019-07-06 07:33:00 [facility] ([facility]) OB Antepartum Prog Note REPORT#:[id number] REPORT STATUS: Signed DATE:07/06/19 TIME: 732 PATIENT: GRADY EDWARD UNIT #: [id number] ROOM/BED: [address] : 80 AGE: 38 SEX: F ATTEND: Eben Tong MD ADM AUTHOR: Eben Tong MD * ALL edits or amendments must be made on the electronic/computer document * Subjective Subjective Admission EGA (wks/days): 23.1, 29.1 today Patient reports: Patient reports: Yes normal movement, No abdominal pain, No vaginal bleeding, No leaking fluid Comments: felt some mild ctx o/n. Objective Nursing Documentation Review Nursing data: The data set between the solid lines has been imported from nursing documentation. Any exceptions have been noted below under Provider comments. ROM date: ROM time: Labor onset date: Labor onset time: EGA at admit (weeks): Provider comments on imported nursing data: [] VS: Last Documented: Result Date Time B/P Mean 70.0 07/04 2017 B/P 99/54 07/04 2017 Pulse 86 07/04 2017 Pulse Ox 99 07/02 2009 Temp 97.9 07/02 2009 Resp 18 07/02 2009 Vital Signs Date Temp Pulse Resp B/P B/P Mean Pulse Ox FiO2 07/04 86-96 99/54-57 70.0-72.0 Patient Weight Weight (lb): 166 Weight (oz): Weight (kg): 75.296 Membranes: Intact Cervical/ exam: Dilatation (cm): 0 - closed Effacement (%): 70 Est wt (gms): 683 station: - 3 presentation: transverse (on last sono) Uterine activity: Monitor: toco Frequency (description): irritability Procedures: non stress test HEENT: normocephalic w/o injury Lungs: unlabored breathing Neuro: Exam: alert, oriented x3 Abdomen: gravid, soft, no abnormal tenderness, no guarding, no rebound tenderness Uterus: soft, non-tender Baby A: Baby A baseline: 140 bpm Baby A variability: moderate 6-25 bpm Baby A accelerations: 10 X 10 Baby A decelerations: none Baby A FHR category: category 1 Baby A notes: AGA Diagnosis, Assessment Plan Diagnosis, Assessment Plan Assessment: 29.1 wks, hx PTB/incompetent cervix, cerclage in place, short cervix. no signs of labor. s/p BMS, kylee. cont bedrest, monitoring. [place] weekly Plan: continue current managmnt at 0734 RPT #:[id number] END OF REPORT [facility] 2019-07-05 08:35:00 [facility] ([facility]) OB Antepartum Prog Note REPORT#:[id number] REPORT STATUS: Signed DATE:07/05/19 TIME: 834 PATIENT: GRADY EDWARD UNIT #: [id number] ROOM/BED: [facility] : 80 AGE: 38 SEX: F ATTEND: Eben Tong MD ADM AUTHOR: Eben Tong MD * ALL edits or amendments must be made on the electronic/computer document * Subjective Subjective Admission EGA (wks/days): 23.1, 29.0 today Patient reports: Patient reports: Yes no complaints, Yes normal movement, No abdominal pain, No vaginal bleeding, No leaking fluid, No contractions Objective Nursing Documentation Review Nursing data: The data set between the solid lines has been imported from nursing documentation. Any exceptions have been noted below under Provider comments. ROM date: ROM time: Labor onset date: Labor onset time: EGA at admit (weeks): Provider comments on imported nursing data: [] VS: Last Documented: Result Date Time B/P Mean 72.0 07/04 746 B/P 99/57 07/04 746 Pulse 96 05/13 0747 Pulse Ox 99 07/02 2009 Temp 97.9 07/02 2009 Resp 18 07/02 2009 Vital Signs Date Temp Pulse Resp B/P B/P Mean Pulse Ox FiO2 07/03-07/04 82-96 96-99/53-57 66.0-72.0 Patient Weight Weight (lb): 166 Weight (oz): Weight (kg): 75.296 Membranes: Intact Cervical/ exam: Dilatation (cm): 0 - closed Effacement (%): 70 Est wt (gms): 683 station: - 3 presentation: transverse (on last sono) Uterine activity: Monitor: toco Frequency (description): irritability Procedures: non stress test HEENT: normocephalic w/o injury Lungs: unlabored breathing Neuro: Exam: alert, oriented x3 Abdomen: gravid, soft, no abnormal tenderness, no guarding, no rebound tenderness Uterus: soft, non-tender Lower extremities: Edema: none Calf tenderness: negative Baby A: Baby A baseline: 140 bpm Baby A variability: moderate 6-25 bpm Baby A accelerations: 10 X 10 Baby A decelerations: none Baby A FHR category: category 1 Baby A notes: AGA Diagnosis, Assessment Plan Diagnosis, Assessment Plan Assessment: 29.0 wks, hx PTB/incompetent cervix, cerclage in place, short cervix. no signs of labor. s/p BMS, kylee. cont bedrest, monitoring. [place] weekly Plan: continue current managmnt at 0836 RPT #:[id number] END OF REPORT [facility] 2019-07-04 08:30:00 [facility] ([facility]) OB Antepartum Prog Note REPORT#:[id number] REPORT STATUS: Signed DATE:07/04/19 TIME: 0830 PATIENT: GRADY EDWARD UNIT #: [id number] ROOM/BED: [facility]-A : 80 AGE: 38 SEX: F ATTEND: Eben Tong MD ADM AUTHOR: Eben Tong MD * ALL edits or amendments must be made on the electronic/computer document * Subjective Subjective Admission EGA (wks/days): 23.1, 28.6 today Patient reports: Patient reports: Yes no complaints, Yes normal movement, No abdominal pain, No vaginal bleeding, No leaking fluid, No contractions Objective Nursing Documentation Review Nursing data: The data set between the solid lines has been imported from nursing documentation. Any exceptions have been noted below under Provider comments. ROM date: ROM time: Labor onset date: Labor onset time: EGA at admit (weeks): Provider comments on imported nursing data: [] VS: Last Documented: Result Date Time B/P Mean 74.0 07/02 2009 Pulse Ox 99 07/02 2009 B/P 98/57 07/02 2009 Temp 97.9 07/02 2009 Pulse 82 07/02 2009 Resp 18 07/02 2009 Vital Signs Date Temp Pulse Resp B/P B/P Mean Pulse Ox FiO2 07/02 97.9 82-83 18 98/57 74.0 98-99 Patient Weight Weight (lb): 166 Weight (oz): Weight (kg): 75.296 Membranes: Intact Cervical/ exam: Dilatation (cm): 0 - closed Effacement (%): 70 Est wt (gms): 683 station: - 3 presentation: transverse (on last sono) Uterine activity: Monitor: toco Frequency (description): irritability Procedures: non stress test HEENT: normocephalic w/o injury Lungs: unlabored breathing Neuro: Exam: alert, oriented x3 Abdomen: gravid, soft, no abnormal tenderness, no guarding, no rebound tenderness Uterus: soft, non-tender Baby A: Baby A baseline: 140 bpm Baby A variability: moderate 6-25 bpm Baby A accelerations: 10 X 10 Baby A decelerations: none Baby A FHR category: category 1 Baby A notes: AGA Diagnosis, Assessment Plan Diagnosis, Assessment Plan Assessment: 28.6 wks, hx PTB/incompetent cervix, cerclage in place, short cervix. no signs of labor. s/p BMS, kylee. cont bedrest, monitoring. [place] weekly Plan: continue current managmnt at 0830 RPT #:[id number] END OF REPORT [facility] 2019-07-03 12:36:00 [facility] ([facility]) OB Antepartum Prog Note REPORT#:[id number] REPORT STATUS: Signed DATE:07/03/19 TIME: 1236 PATIENT: GRADY EDWARD UNIT #: [id number] ROOM/BED: [facility] : 80 AGE: 38 SEX: F ATTEND: Eben Tong MD ADM AUTHOR: Eben Tong MD * ALL edits or amendments must be made on the electronic/computer document * Subjective Subjective Admission EGA (wks/days): 23.1, 28.5 today Patient reports: Patient reports: Yes no complaints, Yes normal movement, No abdominal pain, No vaginal bleeding, No leaking fluid, No contractions Objective Nursing Documentation Review Nursing data: The data set between the solid lines has been imported from nursing documentation. Any exceptions have been noted below under Provider comments. ROM date: ROM time: Labor onset date: Labor onset time: EGA at admit (weeks): Provider comments on imported nursing data: [] VS: Last Documented: Result Date Time B/P Mean 65.0 07/02 08 Pulse Ox 98 07/03 811 B/P 87/52 07/02 08 Temp 97.9 07/02 08 Pulse 86 07/02 0812 Resp 16 07/02 0812 Vital Signs Date Temp Pulse Resp B/P B/P Mean Pulse Ox FiO2 07/01-07/02 97.9 81-86 16 87-105/52-65 65.0-78.0 98 Patient Weight Weight (lb): 166 Weight (oz): Weight (kg): 75.296 Membranes: Intact Cervical/ exam: Dilatation (cm): 0 - closed Effacement (%): 70 Est wt (gms): 683 station: - 3 presentation: transverse (on last sono) Uterine activity: Monitor: toco Frequency (description): irritability Procedures: non stress test HEENT: normocephalic w/o injury Lungs: unlabored breathing Neuro: Exam: alert, oriented x3 Abdomen: gravid, soft, no abnormal tenderness, no guarding, no rebound tenderness Uterus: soft, non-tender Lower extremities: Calf tenderness: negative Baby A: Baby A baseline: 140 bpm Baby A variability: moderate 6-25 bpm Baby A accelerations: 10 X 10 Baby A decelerations: none Baby A FHR category: category 1 Baby A notes: AGA Diagnosis, Assessment Plan Diagnosis, Assessment Plan Assessment: 28.5 wks, hx PTB/incompetent cervix, cerclage in place, short cervix. no signs of labor. s/p BMS, kylee. cont bedrest, monitoring. [place] weekly Plan: continue current managmnt at 1237 RPT #:[id number] END OF REPORT [facility] 2019-07-02 13:06:00 [facility] ([facility]) OB Antepartum Prog Note REPORT#:[id number] REPORT STATUS: Signed DATE:07/02/19 TIME: 1306 PATIENT: GRADY EDWARD UNIT #: [id number] ROOM/BED: 5078-A : 80 AGE: 38 SEX: F ATTEND: Eben Tong MD ADM AUTHOR: Kristyn Celeste MD * ALL edits or amendments must be made on the electronic/computer document * Subjective Subjective Admission EGA (wks/days): 23.1, 28.3 today Patient reports: Patient reports: Yes no complaints Objective VS: Last Documented: Result Date Time B/P Mean 70.0 07/01 0839 B/P 97/56 07/01 0839 Pulse 95 / 0839 Pulse Ox 98 07/01 0838 Temp 98.1 06/28 0826 Resp 20 06/28 0826 Vital Signs Date Temp Pulse Resp B/P B/P Mean Pulse Ox FiO2 /-07/01 84-95 97-106/56-59 70.0-74.0 98-99 Patient Weight Weight (lb): 166 Weight (oz): Weight (kg): 75.296 Membranes: Intact Cervical/ exam: Dilatation (cm): 0 - closed Effacement (%): 70 Est wt (gms): 683 station: - 3 presentation: transverse (on last sono) Uterine activity: Monitor: toco Frequency (description): irritability Procedures: non stress test HEENT: normocephalic w/o injury Lungs: unlabored breathing Neuro: Exam: alert, oriented x3 Abdomen: gravid, soft, no abnormal tenderness, no guarding, no rebound tenderness Uterus: soft, non-tender Lower extremities: Edema: none Calf tenderness: negative Baby A: Baby A baseline: 140 bpm Baby A variability: moderate 6-25 bpm Baby A accelerations: 10 X 10 Baby A decelerations: none Baby A FHR category: category 1 Baby A notes: AGA Diagnosis, Assessment Plan Diagnosis, Assessment Plan Assessment: 28.3 wks, hx PTB/incompetent cervix, cerclage in place, short cervix. no signs of labor. s/p BMS, kylee. cont bedrest, monitoring. [place] weekly Plan: continue current managmnt at 1308 RPT #:[id number] END OF REPORT [facility] 2019-07-01 14:05:00 [facility] ([facility]) OB Antepartum Prog Note REPORT#:[id number] REPORT STATUS: Signed DATE:07/01/19 TIME: 1405 PATIENT: GRADY EDWARD UNIT #: [id number] ROOM/BED: [address] : 80 AGE: 38 SEX: F ATTEND: Eben Tong MD ADM AUTHOR: Nia Tinoco MD * ALL edits or amendments must be made on the electronic/computer document * Subjective Subjective Admission EGA (wks/days): 23.1, 28.2 today Patient reports: Comments: felt some mild ctx o/n. Nursing reports: Comments: c/o low back pain Objective Nursing Documentation Review Nursing data: The data set between the solid lines has been imported from nursing documentation. Any exceptions have been noted below under Provider comments. ROM date: ROM time: Labor onset date: Labor onset time: EGA at admit (weeks): Provider comments on imported nursing data: [] VS: Last Documented: Result Date Time B/P Mean 73.0 06/30 0849 B/P 99/57 06/30 0849 Pulse 95 06/30 0849 Pulse Ox 97 06/30 0848 Temp 98.1 06/28 08 Resp 20 06/28 08 Vital Signs Date Temp Pulse Resp B/P B/P Mean Pulse Ox FiO2 06/29-06/30 83-98 99-104/56-57 73.0-74.0 97 Patient Weight Weight (lb): 166 Weight (oz): Weight (kg): 75.296 Membranes: Intact Cervical/ exam: Dilatation (cm): 0 - closed Effacement (%): 70 Est wt (gms): 683 station: - 3 presentation: transverse (on last sono) Uterine activity: Monitor: toco Frequency (description): irritability Procedures: non stress test HEENT: normocephalic w/o injury Lungs: unlabored breathing Neuro: Exam: alert, oriented x3 Abdomen: gravid, soft, no abnormal tenderness, no guarding, no rebound tenderness Uterus: soft, non-tender Lower extremities: Edema: none Calf tenderness: negative Baby A: Baby A baseline: 140 bpm Baby A variability: moderate 6-25 bpm Baby A accelerations: 10 X 10 Baby A decelerations: none Baby A FHR category: category 1 Baby A notes: AGA Diagnosis, Assessment Plan Diagnosis, Assessment Plan Assessment: 28.2 wks, hx PTB/incompetent cervix, cerclage in place, short cervix. no signs of labor. s/p BMS, kylee. cont bedrest, monitoring. [place] weekly Plan: continue current managmnt at 1406 RPT #:[id number] END OF REPORT [facility] 2019-06-30 11:46:00 [facility] ([facility]) OB Antepartum Prog Note REPORT#:[id number] REPORT STATUS: Signed DATE:06/30/19 TIME: 1146 PATIENT: GRADY EDWARD UNIT #: [id number] [address] AGE: 38 SEX: F ATTEND: Eben Tong MD ADM AUTHOR: Eben Tong MD * ALL edits or amendments must be made on the electronic/computer document * Subjective Subjective Admission EGA (wks/days): 23.1, 28.1 today Patient reports: Patient reports: Yes no complaints, Yes normal movement, No abdominal pain, No vaginal bleeding, No leaking fluid, No contractions Objective Nursing Documentation Review Nursing data: The data set between the solid lines has been imported from nursing documentation. Any exceptions have been noted below under Provider comments. ROM date: ROM time: Labor onset date: Labor onset time: EGA at admit (weeks): Provider comments on imported nursing data: [] VS: Last Documented: Result Date Time B/P Mean 65.0 06/29 742 B/P 92/51 06/29 742 Pulse 85 06/29 742 Temp 98.1 06/29 0726 Resp 20 06/28 825 Pulse Ox 99 06/26 0746 Vital Signs Date Temp Pulse Resp B/P B/P Mean Pulse Ox FiO2 06/28-06/29 85-90 92-94/50-51 65.0-66.0 Patient Weight Weight (lb): 166 Weight (oz): Weight (kg): 75.296 Membranes: Intact Cervical/ exam: Dilatation (cm): 0 - closed Effacement (%): 70 Est wt (gms): 683 station: - 3 presentation: transverse (on last sono) Uterine activity: Monitor: toco Frequency (description): irritability Procedures: non stress test HEENT: normocephalic w/o injury Neuro: Exam: alert, oriented x3 Abdomen: gravid, soft, no abnormal tenderness, no guarding, no rebound tenderness Uterus: soft, non-tender Baby A: Baby A baseline: 140 bpm Baby A variability: moderate 6-25 bpm Baby A accelerations: 10 X 10 Baby A decelerations: none Baby A FHR category: category 1 Baby A notes: AGA Diagnosis, Assessment Plan Diagnosis, Assessment Plan Assessment: 28.2 wks, hx PTB/incompetent cervix, cerclage in place, short cervix. no signs of labor. s/p BMS, kylee. cont bedrest, monitoring. [place] weekly Plan: continue current managmnt at 1147 RPT #:[id number] END OF REPORT [facility] 2019-06-29 08:52:00 [facility] ([facility]) OB Antepartum Prog Note REPORT#:[id number] REPORT STATUS: Signed DATE:06/29/19 TIME: 851 PATIENT: GRADY EDWARD UNIT #: [id number] ROOM/BED: [facility]-A : 80 AGE: 38 SEX: F ATTEND: Eben Tong MD ADM AUTHOR: Eben Tong MD * ALL edits or amendments must be made on the electronic/computer document * Subjective Subjective Admission EGA (wks/days): 23.1, 28.1 today Patient reports: Patient reports: Yes no complaints, Yes normal movement, No abdominal pain, No vaginal bleeding, No leaking fluid, No contractions Objective Nursing Documentation Review Nursing data: The data set between the solid lines has been imported from nursing documentation. Any exceptions have been noted below under Provider comments. ROM date: ROM time: Labor onset date: Labor onset time: EGA at admit (weeks): Provider comments on imported nursing data: [] VS: Last Documented: Result Date Time B/P Mean 68.0 / 1945 B/P 94/54 05/ 1945 Pulse 84 05/06 1945 Pulse Ox 99 / 0846 Temp 97.9 06/23 2018 Resp 18 06/23 2018 Vital Signs Date Temp Pulse Resp B/P B/P Mean Pulse Ox FiO2 05/06 84 94/54 68.0 Patient Weight Weight (lb): 166 Weight (oz): Weight (kg): 75.296 Membranes: Intact Cervical/ exam: Dilatation (cm): 0 - closed Effacement (%): 70 Est wt (gms): 683 station: - 3 presentation: transverse (on last sono) Uterine activity: Monitor: toco Frequency (description): irritability Procedures: non stress test HEENT: normocephalic w/o injury Neuro: Exam: alert, oriented x3 Abdomen: gravid, soft, no abnormal tenderness, no guarding, no rebound tenderness Uterus: soft, non-tender Baby A: Baby A baseline: 140 bpm Baby A variability: moderate 6-25 bpm Baby A accelerations: 10 X 10 Baby A decelerations: none Baby A FHR category: category 1 Baby A notes: AGA Diagnosis, Assessment Plan Diagnosis, Assessment Plan Assessment: 28.1 wks, hx PTB/incompetent cervix, cerclage in place, short cervix. no signs of labor. s/p BMS, kylee. cont bedrest, monitoring. [place] weekly Plan: continue current managmnt at 0853 RPT #:[id number] END OF REPORT [facility] 2019-06-28 08:21:00 [facility] ([facility]) OB Antepartum Prog Note REPORT#:[id number] REPORT STATUS: Signed DATE:06/28/19 TIME: 820 PATIENT: GRADY EDWARD UNIT #: [id number] ROOM/BED: [address] : 80 AGE: 38 SEX: F ATTEND: Eben Tong MD ADM AUTHOR: Eben Tong MD * ALL edits or amendments must be made on the electronic/computer document * Subjective Subjective Admission EGA (wks/days): 23.1, 28.0 today Patient reports: Patient reports: Yes normal movement, No abdominal pain, No vaginal bleeding, No leaking fluid Comments: felt some mild ctx o/n. Objective Nursing Documentation Review Nursing data: The data set between the solid lines has been imported from nursing documentation. Any exceptions have been noted below under Provider comments. ROM date: ROM time: Labor onset date: Labor onset time: EGA at admit (weeks): Provider comments on imported nursing data: [] VS: Last Documented: Result Date Time B/P Mean 67.0 06/27 0003 B/P 92/55 06/27 0003 Pulse 79 06/27 2 Pulse Ox 99 06/25 0846 Temp 97.9 06/23 2018 Resp 18 06/23 2018 Vital Signs Date Temp Pulse Resp B/P B/P Mean Pulse Ox FiO2 06/27 79 / 67.0 Patient Weight Weight (lb): 166 Weight (oz): Weight (kg): 75.296 Membranes: Intact Cervical/ exam: Dilatation (cm): 0 - closed Effacement (%): 70 Est wt (gms): 683 station: - 3 presentation: transverse (on last sono) Uterine activity: Monitor: toco Frequency (description): irritability Procedures: non stress test HEENT: normocephalic w/o injury Neuro: Exam: alert, oriented x3 Abdomen: gravid, soft, no abnormal tenderness, no guarding, no rebound tenderness Uterus: soft, non-tender Baby A: Baby A baseline: 140 bpm Baby A variability: moderate 6-25 bpm Baby A accelerations: 10 X 10 Baby A decelerations: none Baby A FHR category: category 1 Baby A notes: AGA Diagnosis, Assessment Plan Diagnosis, Assessment Plan Assessment: 28.0 wks, hx PTB/incompetent cervix, cerclage in place, short cervix. no signs of labor. s/p BMS, kylee. cont bedrest, monitoring. [place] weekly Plan: continue current managmnt at 0822 RPT #:[id number] END OF REPORT [facility] 2019-06-27 12:19:00 [facility] ([facility]) OB Antepartum Prog Note REPORT#:[id number] REPORT STATUS: Signed DATE:06/27/19 TIME: 1219 PATIENT: GRADY EDWARD UNIT #: [id number] ROOM/BED: [address] : 80 AGE: 38 SEX: F ATTEND: Eben Tong MD ADM AUTHOR: Eben Tong MD * ALL edits or amendments must be made on the electronic/computer document * Subjective Subjective Admission EGA (wks/days): 23.1, 28.0 today Patient reports: Comments: no complaints Nursing reports: Comments: c/o low back pain Objective Nursing Documentation Review Nursing data: The data set between the solid lines has been imported from nursing documentation. Any exceptions have been noted below under Provider comments. ROM date: ROM time: Labor onset date: Labor onset time: EGA at admit (weeks): Provider comments on imported nursing data: [] VS: Last Documented: Result Date Time B/P Mean 66.0 06/26 0801 B/P 93/53 06/26 0801 Pulse 83 06/26 0801 Pulse Ox 99 06/25 0846 Temp 97.9 06/23 2019 Resp 18 06/23 2019 Vital Signs Date Temp Pulse Resp B/P B/P Mean Pulse Ox FiO2 /-06/26 82-83 93-103/53-63 66.0-78.0 Patient Weight Weight (lb): 166 Weight (oz): Weight (kg): 75.296 Membranes: Intact Cervical/ exam: Dilatation (cm): 0 - closed Effacement (%): 70 Est wt (gms): 683 station: - 3 presentation: transverse (on last sono) Uterine activity: Monitor: toco Frequency (description): irritability Procedures: non stress test HEENT: normocephalic w/o injury Lungs: unlabored breathing Neuro: Exam: alert, oriented x3 Abdomen: gravid, soft, no abnormal tenderness, no guarding, no rebound tenderness Uterus: soft, non-tender Lower extremities: Edema: none Calf tenderness: negative Baby A: Baby A baseline: 140 bpm Baby A variability: moderate 6-25 bpm Baby A accelerations: 10 X 10 Baby A decelerations: none Baby A FHR category: category 1 Baby A notes: AGA Diagnosis, Assessment Plan Diagnosis, Assessment Plan Assessment: 28.0 wks, hx PTB/incompetent cervix, cerclage in place, short cervix. no signs of labor. s/p BMS, kylee. cont bedrest, monitoring. [place] weekly Plan: continue current managmnt at 1220 RPT #:[id number] END OF REPORT [facility] 2019-06-26 13:03:00 [facility]) OB Antepartum Prog Note REPORT#:[id number] REPORT STATUS: Signed DATE:06/26/19 TIME: 1303 PATIENT: GRADY EDWARD UNIT #: [id number] ROOM/BED: 3204-A : 80 AGE: 38 SEX: F ATTEND: Eben Tong MD ADM AUTHOR: Eben Tong MD * ALL edits or amendments must be made on the electronic/computer document * Subjective Subjective Admission EGA (wks/days): 23.1, 27.6 today Patient reports: Patient reports: Yes no complaints, Yes normal movement, No abdominal pain, No vaginal bleeding, No leaking fluid, No contractions Comments: no complaints Objective Nursing Documentation Review Nursing data: The data set between the solid lines has been imported from nursing documentation. Any exceptions have been noted below under Provider comments. ROM date: ROM time: Labor onset date: Labor onset time: EGA at admit (weeks): Provider comments on imported nursing data: [] VS: Last Documented: Result Date Time B/P Mean 67.0 / 0847 B/P 95/51 / 0847 Pulse 91 / 0847 Pulse Ox 99 / 0846 Temp 97.9 06/23 2018 Resp 18 06/23 2018 Vital Signs Date Temp Pulse Resp B/P B/P Mean Pulse Ox FiO2 05/03-06/25 86-91 95-97/51-53 67.0-70.0 99 Patient Weight Weight (lb): 166 Weight (oz): Weight (kg): 75.296 Membranes: Intact Cervical/ exam: presentation: transverse (on last sono) Uterine activity: Monitor: toco Frequency (description): irritability Procedures: non stress test HEENT: normocephalic w/o injury Lungs: unlabored breathing Neuro: Exam: alert, oriented x3 Abdomen: gravid, soft, no abnormal tenderness, no guarding, no rebound tenderness Uterus: soft, non-tender Lower extremities: Edema: none Calf tenderness: negative Baby A: Baby A baseline: 140 bpm Baby A variability: moderate 6-25 bpm Baby A accelerations: 10 X 10 Baby A decelerations: none Baby A FHR category: category 1 Baby A notes: AGA Diagnosis, Assessment Plan Diagnosis, Assessment Plan Assessment: 27.6 wks, hx PTB/incompetent cervix, cerclage in place, short cervix. no signs of labor. s/p BMS, kylee. cont bedrest, monitoring. [place] weekly Plan: continue current managmnt at 1304 RPT #:[id number] END OF REPORT [facility] 2019-06-25 14:08:00 [facility] ([facility]) OB Antepartum Prog Note REPORT#:[id number] REPORT STATUS: Signed DATE:06/25/19 TIME: 1408 PATIENT: GRADY EDWADR UNIT #: [id number] ROOM/BED: [address] : 80 AGE: 38 SEX: F ATTEND: Eben Tong MD ADM AUTHOR: Eben Tong MD * ALL edits or amendments must be made on the electronic/computer document * Subjective Subjective Admission EGA (wks/days): 23.1, 27.5 today Patient reports: Comments: no complaints Objective Nursing Documentation Review Nursing data: The data set between the solid lines has been imported from nursing documentation. Any exceptions have been noted below under Provider comments. ROM date: ROM time: Labor onset date: Labor onset time: EGA at admit (weeks): Provider comments on imported nursing data: [] VS: Last Documented: Result Date Time B/P Mean 66.0 06/24 0857 B/P 92/55 06/24 0857 Pulse 94 06/24 0857 Pulse Ox 97 06/24 0856 Temp 97.9 06/23 2018 Resp 18 06/23 2018 Vital Signs Date Temp Pulse Resp B/P B/P Mean Pulse Ox FiO2 06/23-06/24 97.9 88-94 18 92-105/55-60 66.0-76.0 97-98 Patient Weight Weight (lb): 166 Weight (oz): Weight (kg): 75.296 Membranes: Intact Cervical/ exam: Dilatation (cm): 0 - closed Effacement (%): 70 Est wt (gms): 683 station: - 3 Uterine activity: Monitor: toco Frequency (description): irritability Procedures: non stress test HEENT: normocephalic w/o injury Lungs: unlabored breathing Neuro: Exam: alert, oriented x3 Abdomen: gravid, soft, no abnormal tenderness, no guarding, no rebound tenderness Uterus: soft, non-tender Lower extremities: Edema: none Calf tenderness: negative Baby A: Baby A baseline: 140 bpm Baby A variability: moderate 6-25 bpm Baby A accelerations: 10 X 10 Baby A decelerations: none Baby A FHR category: category 1 Baby A notes: AGA Diagnosis, Assessment Plan Diagnosis, Assessment Plan Assessment: 27.5 wks, hx PTB/incompetent cervix, cerclage in place, short cervix. no signs of labor. s/p BMS, kylee. cont bedrest, monitoring. [place] weekly Plan: continue current managmnt at 1408 RPT #:[id number] END OF REPORT [facility] 2019-06-24 07:39:00 [facility] ([facility]) OB Antepartum Prog Note REPORT#:[id number] REPORT STATUS: Signed DATE:06/24/19 TIME: 07 PATIENT: GRADY EDWARD UNIT #: [id number] ROOM/BED: [address] : 80 AGE: 38 SEX: F ATTEND: Eben Tong MD ADM AUTHOR: Eben Tong MD * ALL edits or amendments must be made on the electronic/computer document * Subjective Subjective Admission EGA (wks/days): 23.1, 27.4 today Patient reports: Patient reports: Yes no complaints, Yes normal movement, No abdominal pain, No vaginal bleeding, No leaking fluid, No contractions Comments: no complaints Objective Nursing Documentation Review Nursing data: The data set between the solid lines has been imported from nursing documentation. Any exceptions have been noted below under Provider comments. ROM date: ROM time: Labor onset date: Labor onset time: EGA at admit (weeks): Provider comments on imported nursing data: [] VS: Last Documented: Result Date Time B/P Mean 78.0 06/23 2003 B/P 111/61 06/22 2004 Pulse 101 06/22 2004 Pulse Ox 98 06/21 08 Temp 98.2 06/21 08 Resp 14 06/21 08 Vital Signs Date Temp Pulse Resp B/P B/P Mean Pulse Ox FiO2 05/01 91-101 94-111/55-61 68.0-78.0 Patient Weight Weight (lb): 166 Weight (oz): Weight (kg): 75.296 Membranes: Intact Cervical/ exam: Dilatation (cm): 0 - closed Effacement (%): 70 Est wt (gms): 683 station: - 3 Uterine activity: Monitor: toco Frequency (description): irritability Procedures: non stress test HEENT: normocephalic w/o injury Lungs: unlabored breathing Neuro: Exam: alert, oriented x3 Abdomen: gravid, soft, no abnormal tenderness, no guarding, no rebound tenderness Uterus: soft, non-tender Lower extremities: Edema: none Calf tenderness: negative Baby A: Baby A baseline: 140 bpm Baby A variability: moderate 6-25 bpm Baby A accelerations: 10 X 10 Baby A decelerations: none Baby A FHR category: category 1 Baby A notes: AGA Diagnosis, Assessment Plan Diagnosis, Assessment Plan Assessment: 27.4 wks, hx PTB/incompetent cervix, cerclage in place, short cervix. no signs of labor. s/p BMS, kylee. cont bedrest, monitoring. [place] weekly Plan: continue current managmnt at 0740 RPT #:[id number] END OF REPORT [facility] 2019-06-23 07:48:00 [facility] ([facility]) OB Antepartum Prog Note REPORT#:[id number] REPORT STATUS: Signed DATE:06/23/19 TIME: 747 PATIENT: GRADY EDWARD UNIT #: [id number] ROOM/BED: [facility]4-A : 80 AGE: 38 SEX: F ATTEND: Eben Tong MD ADM AUTHOR: Eben Tong MD * ALL edits or amendments must be made on the electronic/computer document * Subjective Subjective Admission EGA (wks/days): 23.1, 27.3 today Patient reports: Patient reports: Yes no complaints, Yes normal movement, No abdominal pain, No vaginal bleeding, No leaking fluid, No contractions Objective Nursing Documentation Review Nursing data: The data set between the solid lines has been imported from nursing documentation. Any exceptions have been noted below under Provider comments. ROM date: ROM time: Labor onset date: Labor onset time: EGA at admit (weeks): Provider comments on imported nursing data: [] VS: Last Documented: Result Date Time B/P Mean 72.0 06/21 2008 B/P 101/52 06/21 2009 Pulse 82 06/21 2009 Pulse Ox 98 06/21 0817 Temp 98.2 06/21 0817 Resp 14 06/21 0817 Vital Signs Date Temp Pulse Resp B/P B/P Mean Pulse Ox FiO2 06/21 98.2 82-88 14 94-101/52 68.0-72.0 98 Patient Weight Weight (lb): 166 Weight (oz): Weight (kg): 75.296 Membranes: Intact Cervical/ exam: Dilatation (cm): 0 - closed Effacement (%): 70 Est wt (gms): 683 station: - 3 Uterine activity: Monitor: toco Frequency (description): none Procedures: non stress test HEENT: normocephalic w/o injury Lungs: unlabored breathing Neuro: Exam: alert, oriented x3 Abdomen: gravid, soft, no abnormal tenderness, no guarding, no rebound tenderness Uterus: soft, non-tender Lower extremities: Edema: none Calf tenderness: negative Baby A: Baby A baseline: 140 bpm Baby A variability: moderate 6-25 bpm Baby A accelerations: 10 X 10 Baby A decelerations: none Baby A FHR category: category 1 Baby A notes: AGA Diagnosis, Assessment Plan Diagnosis, Assessment Plan Assessment: 27.3 wks, hx PTB/incompetent cervix, cerclage in place, short cervix. no signs of labor. s/p BMS, kylee. cont bedrest, monitoring. [place] weekly Plan: continue current managmnt at 0749 RPT #:[id number] END OF REPORT [facility] 2019-06-22 14:31:00 [facility] ([facility]) OB Antepartum Prog Note REPORT#:[id number] REPORT STATUS: Signed DATE:06/22/19 TIME: 1431 PATIENT: GRADY EDWARD UNIT #: [id number] ROOM/BED: [address] : 80 AGE: 38 SEX: F ATTEND: Eben Tong MD ADM AUTHOR: Eben Tong MD * ALL edits or amendments must be made on the electronic/computer document * Subjective Subjective Admission EGA (wks/days): 23.1, 27.2 today Patient reports: Comments: no complaints Nursing reports: Nursing reports: Yes normal movement, No abdominal pain, No vaginal bleeding, No leaking fluid, No contractions Comments: c/o low back pain Objective Nursing Documentation Review Nursing data: The data set between the solid lines has been imported from nursing documentation. Any exceptions have been noted below under Provider comments. ROM date: ROM time: Labor onset date: Labor onset time: EGA at admit (weeks): Provider comments on imported nursing data: [] VS: Last Documented: Result Date Time B/P Mean 68.0 06/21 816 Pulse Ox 98 06/21 816 B/P 94/52 06/21 08 Temp 98.2 06/21 08 Pulse 88 06/21 0817 Resp 14 06/21 08 Vital Signs Date Temp Pulse Resp B/P B/P Mean Pulse Ox FiO2 06/20-06/21 98.2 88-92 14 94-104/52-55 68.0-72.0 98 Patient Weight Weight (lb): 166 Weight (oz): Weight (kg): 75.296 Membranes: Intact Cervical/ exam: Dilatation (cm): 0 - closed Effacement (%): 70 Est wt (gms): 683 station: - 3 Uterine activity: Monitor: toco Frequency (description): none Procedures: non stress test HEENT: normocephalic w/o injury Lungs: unlabored breathing Neuro: Exam: alert, oriented x3 Abdomen: gravid, soft, no abnormal tenderness, no guarding, no rebound tenderness Uterus: soft, non-tender Lower extremities: Edema: none Calf tenderness: negative Baby A: Baby A baseline: 140 bpm Baby A variability: moderate 6-25 bpm Baby A accelerations: 10 X 10 Baby A decelerations: none Baby A FHR category: category 1 Baby A notes: AGA Diagnosis, Assessment Plan Diagnosis, Assessment Plan Assessment: 27.2 wks, hx PTB/incompetent cervix, cerclage in place, short cervix. no signs of labor. s/p BMS, kylee. cont bedrest, monitoring. [place] weekly Plan: continue current managmnt at 1432 RPT #:[id number] END OF REPORT [facility] 2019-06-21 12:14:00 [facility] ([facility]) OB Antepartum Prog Note REPORT#:[id number] REPORT STATUS: Signed DATE:06/21/19 TIME: 1214 PATIENT: GRADY EDWARD UNIT #: [id number] ROOM/BED: [address] : 80 AGE: 38 SEX: F ATTEND: Eben Tong MD ADM AUTHOR: Eben Tong MD * ALL edits or amendments must be made on the electronic/computer document * Subjective Subjective Admission EGA (wks/days): 23.1, 27.1 today Patient reports: Patient reports: Yes no complaints, Yes normal movement, No abdominal pain, No vaginal bleeding, No leaking fluid, No contractions Comments: no complaints Objective VS: Last Documented: Result Date Time B/P Mean 70.0 06/20 0740 B/P 92/55 06/20 0740 Pulse 93 06/20 0740 Pulse Ox 98 06/19 0847 Temp 98.3 06/19 0847 Resp 14 06/19 0847 Vital Signs Date Temp Pulse Resp B/P B/P Mean Pulse Ox FiO2 06/19-06/20 84-93 92-101/55-64 70.0-77.0 Patient Weight Weight (lb): 166 Weight (oz): Weight (kg): 75.296 Membranes: Intact Cervical/ exam: Dilatation (cm): 0 - closed Effacement (%): 70 Est wt (gms): 683 station: - 3 Uterine activity: Monitor: toco Frequency (description): none Procedures: non stress test HEENT: normocephalic w/o injury Lungs: unlabored breathing Neuro: Exam: alert, oriented x3 Abdomen: gravid, soft, no abnormal tenderness, no guarding, no rebound tenderness Uterus: soft, non-tender Lower extremities: Edema: none Calf tenderness: negative Baby A: Baby A baseline: 140 bpm Baby A variability: moderate 6-25 bpm Baby A accelerations: 10 X 10 Baby A decelerations: none Baby A FHR category: category 1 Baby A notes: AGA Diagnosis, Assessment Plan Diagnosis, Assessment Plan Assessment: 27.1 wks, hx PTB/incompetent cervix, cerclage in place, short cervix. no signs of labor. s/p BMS, kylee. cont bedrest, monitoring. [place] weekly Plan: continue current managmnt at 1215 RPT #:[id number] END OF REPORT [facility] 2019-06-20 07:28:00 [facility] ([facility]) OB Antepartum Prog Note REPORT#:[id number] REPORT STATUS: Signed DATE:06/20/19 TIME: 727 PATIENT: GRADY EDWARD UNIT #: [id number] ROOM/BED: [address] : 80 AGE: 38 SEX: F ATTEND: Eben Tong MD ADM AUTHOR: Eben Tong MD * ALL edits or amendments must be made on the electronic/computer document * Subjective Subjective Admission EGA (wks/days): 23.1, 27.0 today Patient reports: Patient reports: Yes no complaints, Yes normal movement, No abdominal pain, No vaginal bleeding, No leaking fluid, No contractions Comments: no complaints Objective Nursing Documentation Review Nursing data: The data set between the solid lines has been imported from nursing documentation. Any exceptions have been noted below under Provider comments. ROM date: ROM time: Labor onset date: Labor onset time: EGA at admit (weeks): Provider comments on imported nursing data: [] VS: Last Documented: Result Date Time B/P Mean 73.0 06/18 2045 B/P 105/51 06/18 2046 Pulse 93 06/18 2045 Temp 98.2 06/18 0802 Resp 16 06/18 0802 Pulse Ox 98 06/10 0853 Vital Signs Date Temp Pulse Resp B/P B/P Mean Pulse Ox FiO2 06/18 98.2 93-102 16 97-105/51-60 73.0 Patient Weight Weight (lb): 166 Weight (oz): Weight (kg): 75.296 Membranes: Intact Cervical/ exam: Dilatation (cm): 0 - closed Effacement (%): 70 Est wt (gms): 683 station: - 3 Uterine activity: Monitor: toco Frequency (description): none Procedures: non stress test HEENT: normocephalic w/o injury Neuro: Exam: alert, oriented x3 Abdomen: gravid, soft, no abnormal tenderness, no guarding, no rebound tenderness Uterus: soft, non-tender Baby A: Baby A baseline: 140 bpm Baby A variability: moderate 6-25 bpm Baby A accelerations: 10 X 10 Baby A decelerations: none Baby A FHR category: category 1 Baby A notes: AGA Diagnosis, Assessment Plan Diagnosis, Assessment Plan Assessment: 27.0 wks, hx PTB/incompetent cervix, cerclage in place, short cervix. no signs of labor. s/p BMS, kylee. cont bedrest, monitoring. [place] weekly Plan: continue current managmnt at 0729 RPT #:[id number] END OF REPORT [facility] 2019-06-19 12:41:00 [facility] [facility]) OB Antepartum Prog Note REPORT#:[id number] REPORT STATUS: Signed DATE:06/19/19 TIME: 1241 PATIENT: GRADY EDWARD UNIT #: [id number] ROOM/BED: [facility]4-A : 80 AGE: 38 SEX: F ATTEND: Eben Tong MD ADM AUTHOR: Eben Tong MD * ALL edits or amendments must be made on the electronic/computer document * Subjective Subjective Admission EGA (wks/days): 23.1, 26.6 today Patient reports: Patient reports: Yes no complaints, Yes normal movement, No abdominal pain, No vaginal bleeding, No leaking fluid, No contractions Objective Nursing Documentation Review Nursing data: The data set between the solid lines has been imported from nursing documentation. Any exceptions have been noted below under Provider comments. ROM date: ROM time: Labor onset date: Labor onset time: EGA at admit (weeks): Provider comments on imported nursing data: [] VS: Last Documented: Result Date Time B/P Mean 73.0 06/18 0802 B/P 97/60 06/18 0802 Temp 98.2 06/18 0802 Pulse 102 06/18 0802 Resp 16 06/18 0802 Pulse Ox 98 06/10 0853 Vital Signs Date Temp Pulse Resp B/P B/P Mean Pulse Ox FiO2 06/17-06/18 98.2 86-102 16 97-100/58-60 73.0 Patient Weight Weight (lb): 166 Weight (oz): Weight (kg): 75.296 Membranes: Intact Cervical/ exam: Dilatation (cm): 0 - closed Effacement (%): 70 Est wt (gms): 683 station: - 3 Uterine activity: Monitor: toco Frequency (description): none Procedures: non stress test HEENT: normocephalic w/o injury Lungs: unlabored breathing Neuro: Exam: alert, oriented x3 Abdomen: gravid, soft, no abnormal tenderness, no guarding, no rebound tenderness Uterus: soft, non-tender Baby A: Baby A baseline: 140 bpm Baby A variability: moderate 6-25 bpm Baby A accelerations: 10 X 10 Baby A decelerations: none Baby A FHR category: category 1 Baby A notes: AGA Diagnosis, Assessment Plan Diagnosis, Assessment Plan Assessment: 26.6 wks, hx PTB/incompetent cervix, cerclage in place, short cervix. no signs of labor. s/p BMS, kylee. cont bedrest, monitoring. [place] weekly at 1242 RPT #:[id number] END OF REPORT [facility] 2019-06-18 11:50:00 [facility]) OB Antepartum Prog Note REPORT#:[id number] REPORT STATUS: Signed DATE:06/18/19 TIME: 1150 PATIENT: GRADY EDWARD UNIT #: [id number] ROOM/BED: [address] : 80 AGE: 38 SEX: F ATTEND: Eben Tong MD ADM AUTHOR: Rachele Shipman MD * ALL edits or amendments must be made on the electronic/computer document * Subjective Subjective Admission EGA (wks/days): 23.1, 26.6 today Patient reports: Comments: no complaints Objective Nursing Documentation Review Nursing data: The data set between the solid lines has been imported from nursing documentation. Any exceptions have been noted below under Provider comments. ROM date: ROM time: Labor onset date: Labor onset time: EGA at admit (weeks): Provider comments on imported nursing data: [] VS: Last Documented: Result Date Time B/P Mean 69.0 06/17 0913 B/P 96/52 06/17 0913 Pulse 101 06/17 0913 Temp 98.4 06/15 1619 Resp 18 06/15 1619 Pulse Ox 98 06/10 0853 Vital Signs Date Temp Pulse Resp B/P B/P Mean Pulse Ox FiO2 06/16-06/17 87-101 96-105/52 69.0-71.0 Patient Weight Weight (lb): 166 Weight (oz): Weight (kg): 75.296 Membranes: Intact Cervical/ exam: Dilatation (cm): 0 - closed Effacement (%): 70 Est wt (gms): 683 station: - 3 Uterine activity: Monitor: toco Frequency (description): none Procedures: non stress test HEENT: normocephalic w/o injury Neuro: Exam: alert, oriented x3 Abdomen: gravid, soft, no abnormal tenderness, no guarding, no rebound tenderness Uterus: soft, non-tender Lower extremities: Edema: none Calf tenderness: negative Baby A: Baby A baseline: 140 bpm Baby A variability: moderate 6-25 bpm Baby A accelerations: 10 X 10 Baby A decelerations: none Baby A FHR category: category 1 Baby A notes: AGA Diagnosis, Assessment Plan Diagnosis, Assessment Plan Assessment: threatened labor Plan: continue current managmnt Plan discussed with: patient at 1151 RPT #:[id number] END OF REPORT [facility] 2019-06-17 14:27:00 [facility] ([facility]) OB Antepartum Prog Note REPORT#:[id number] REPORT STATUS: Signed DATE:06/17/19 TIME: 1427 PATIENT: GRADY EDWARD UNIT #: [id number] ROOM/BED: [address] : 80 AGE: 38 SEX: F ATTEND: Eben Tong MD ADM AUTHOR: Bg Leblanc Jr, MD * ALL edits or amendments must be made on the electronic/computer document * Subjective Subjective Admission EGA (wks/days): 23.1, 26.3 today Patient reports: Patient reports: Yes no complaints, Yes normal movement, No abdominal pain, No vaginal bleeding, No leaking fluid, No contractions Objective Nursing Documentation Review Nursing data: The data set between the solid lines has been imported from nursing documentation. Any exceptions have been noted below under Provider comments. ROM date: ROM time: Labor onset date: Labor onset time: EGA at admit (weeks): Provider comments on imported nursing data: [] VS: Last Documented: Result Date Time B/P Mean 66.0 06/16 0745 B/P 88/54 06/16 0745 Pulse 99 06/16 0745 Temp 98.4 06/15 1619 Resp 18 06/15 1619 Pulse Ox 98 06/10 0853 Vital Signs Date Temp Pulse Resp B/P B/P Mean Pulse Ox FiO2 06/15-06/16 98.4 87-99 18 88-100/54-59 66.0-74.0 Patient Weight Weight (lb): 166 Weight (oz): Weight (kg): 75.296 Membranes: Intact Cervical/ exam: Dilatation (cm): 0 - closed Effacement (%): 70 Est wt (gms): 683 station: - 3 Uterine activity: Monitor: toco Frequency (description): none Procedures: non stress test HEENT: normocephalic w/o injury Lungs: unlabored breathing Neuro: Exam: alert, oriented x3 Abdomen: gravid, soft, no abnormal tenderness, no guarding, no rebound tenderness Uterus: soft, non-tender Lower extremities: Edema: none Calf tenderness: negative Baby A: Baby A baseline: 140 bpm Baby A variability: moderate 6-25 bpm Baby A accelerations: 10 X 10 Baby A decelerations: none Baby A FHR category: category 1 Baby A notes: AGA Diagnosis, Assessment Plan Diagnosis, Assessment Plan Assessment: 26.3 wks, hx of PTB, 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 elevated 1 hr GTT, 3h GTT WNL. cont bedrest, in house obs. s/p steroids, s/p Mag. Kylee consult done. [place] q . Anemia - PO FeSO4 daily Plan: continue current managmnt at 1429 RPT #:[id number] END OF REPORT [facility] 2019-06-16 12:34:00 [facility] ([facility]) OB Antepartum Prog Note REPORT#:[id number] REPORT STATUS: Signed DATE:06/16/19 TIME: 1234 PATIENT: GRADY EDWARD UNIT #: [id number] [address] AGE: 38 SEX: F ATTEND: Eben Tong MD ADM AUTHOR: Eben Tong MD * ALL edits or amendments must be made on the electronic/computer document * Subjective Subjective Admission EGA (wks/days): 23.1, 26.2 today Patient reports: Comments: back pain last night better after heating pad Objective Nursing Documentation Review Nursing data: The data set between the solid lines has been imported from nursing documentation. Any exceptions have been noted below under Provider comments. ROM date: ROM time: Labor onset date: Labor onset time: EGA at admit (weeks): Provider comments on imported nursing data: [] VS: Last Documented: Result Date Time B/P Mean 71.0 06/15 0902 B/P 98/54 06/15 0902 Pulse 95 06/15 0902 Pulse Ox 98 06/10 0853 Temp 97.8 06/08 0921 Resp 18 06/07 0917 Vital Signs Date Temp Pulse Resp B/P B/P Mean Pulse Ox FiO2 06/14-06/15 90-95 98-101/54-59 71.0-77.0 Patient Weight Weight (lb): 166 Weight (oz): Weight (kg): 75.296 Membranes: Intact Cervical/ exam: Dilatation (cm): 0 - closed Effacement (%): 70 Est wt (gms): 683 station: - 3 Uterine activity: Monitor: toco Frequency (description): none Procedures: non stress test HEENT: normocephalic w/o injury Lungs: unlabored breathing Neuro: Exam: alert, oriented x3 Abdomen: gravid, soft, no abnormal tenderness, no guarding, no rebound tenderness Uterus: soft, non-tender Lower extremities: Edema: none Calf tenderness: negative Baby A: Baby A baseline: 140 bpm Baby A variability: moderate 6-25 bpm Baby A accelerations: 10 X 10 Baby A decelerations: none Baby A FHR category: category 1 Baby A notes: AGA Diagnosis, Assessment Plan Diagnosis, Assessment Plan Assessment: 26.2 wks, hx of PTB, 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 elevated 1 hr GTT, 3h GTT WNL. cont bedrest, in house obs. s/p steroids, s/p Mag. Kylee consult done. [place] q . Anemia - PO FeSO4 daily Plan: continue current managmnt at 1234 RPT #:[id number] END OF REPORT [facility] 2019-06-15 07:36:00 [facility] ([facility]) OB Antepartum Prog Note REPORT#:[id number] REPORT STATUS: Signed DATE:06/15/19 TIME: 07 PATIENT: GRADY EDWARD UNIT #: [id number] ROOM/BED: [facility]4 : 80 AGE: 38 SEX: F ATTEND: Eben Tong MD ADM AUTHOR: Eben Tong MD * ALL edits or amendments must be made on the electronic/computer document * Subjective Subjective Admission EGA (wks/days): 23.1, 26.0 today Patient reports: Patient reports: Yes no complaints, Yes normal movement, No abdominal pain, No vaginal bleeding, No leaking fluid, No contractions Objective Nursing Documentation Review Nursing data: The data set between the solid lines has been imported from nursing documentation. Any exceptions have been noted below under Provider comments. ROM date: ROM time: Labor onset date: Labor onset time: EGA at admit (weeks): Provider comments on imported nursing data: [] VS: Last Documented: Result Date Time B/P Mean 74.0 06/13 1948 B/P 99/62 06/13 1948 Pulse 96 06/13 1948 Pulse Ox 98 06/10 0853 Temp 97.8 06/08 0921 Resp 18 06/07 0917 Vital Signs Date Temp Pulse Resp B/P B/P Mean Pulse Ox FiO2 06/13 88-96 97-99/54-62 70.0-74.0 Patient Weight Weight (lb): 166 Weight (oz): Weight (kg): 75.296 Membranes: Intact Cervical/ exam: Dilatation (cm): 0 - closed Effacement (%): 70 Est wt (gms): 683 station: - 3 Uterine activity: Monitor: toco Frequency (description): none Procedures: non stress test HEENT: normocephalic w/o injury Lungs: unlabored breathing Neuro: Exam: alert, oriented x3 Abdomen: gravid, soft, no abnormal tenderness, no guarding, no rebound tenderness Uterus: soft, non-tender Lower extremities: Edema: none Calf tenderness: negative Baby A: Baby A baseline: 140 bpm Baby A variability: moderate 6-25 bpm Baby A accelerations: 10 X 10 Baby A decelerations: none Baby A FHR category: category 1 Baby A notes: AGA Diagnosis, Assessment Plan Diagnosis, Assessment Plan Assessment: 26.1 wks, hx of PTB, 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 elevated 1 hr GTT, 3h GTT WNL. cont bedrest, in house obs. s/p steroids, s/p Mag. Kylee consult done. [place] q . Anemia - PO FeSO4 daily Plan: continue current managmnt at 0736 RPT #:[id number] END OF REPORT [facility] 2019-06-14 08:15:00 [facility] ([facility]) OB Antepartum Prog Note REPORT#:[id number] REPORT STATUS: Signed DATE:06/14/19 TIME: 0815 PATIENT: GRADY EDWARD UNIT #: [id number] ROOM/BED: [facility]8-A : 80 AGE: 38 SEX: F ATTEND: Eben Tong MD ADM AUTHOR: Eben Tong MD * ALL edits or amendments must be made on the electronic/computer document * Subjective Subjective Admission EGA (wks/days): 23.1, 26.0 today Patient reports: Patient reports: No abdominal pain, No vaginal bleeding, No leaking fluid, No contractions, No normal movement Comments: back pain last night better after heating pad Objective Nursing Documentation Review Nursing data: The data set between the solid lines has been imported from nursing documentation. Any exceptions have been noted below under Provider comments. ROM date: ROM time: Labor onset date: Labor onset time: EGA at admit (weeks): Provider comments on imported nursing data: [] VS: Last Documented: Result Date Time B/P Mean 81.0 06/13 2003 B/P 119/57 06/13 2003 Pulse 98 06/13 2003 Pulse Ox 98 06/10 0853 Temp 97.8 06/08 0921 Resp 18 06/07 0917 Vital Signs Date Temp Pulse Resp B/P B/P Mean Pulse Ox FiO2 06/12 98 119/57 81.0 Patient Weight Weight (lb): 166 Weight (oz): Weight (kg): 75.296 Membranes: Intact Cervical/ exam: Dilatation (cm): 0 - closed Effacement (%): 70 Est wt (gms): 683 station: - 3 Uterine activity: Monitor: toco Frequency (description): none Procedures: non stress test HEENT: normocephalic w/o injury Lungs: unlabored breathing Neuro: Exam: alert, oriented x3 Abdomen: gravid, soft, no abnormal tenderness, no guarding, no rebound tenderness Uterus: soft, non-tender Lower extremities: Edema: none Calf tenderness: negative Baby A: Baby A baseline: 140 bpm Baby A variability: moderate 6-25 bpm Baby A accelerations: 10 X 10 Baby A decelerations: none Baby A FHR category: category 1 Baby A notes: AGA Diagnosis, Assessment Plan Diagnosis, Assessment Plan Assessment: 26.0 wks, hx of PTB, 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 elevated 1 hr GTT, 3h GTT WNL. cont bedrest, in house obs. s/p steroids, s/p Mag. Kylee consult done. Denita q . Anemia - PO FeSO4 daily Plan: continue current managmnt at 0816 RPT #:[id number] END OF REPORT [facility] 2019-06-13 12:19:00 [facility] ([facility]) OB Antepartum Prog Note REPORT#:[id number] REPORT STATUS: Signed DATE:06/13/19 TIME: 1219 PATIENT: GRADY EDWARD UNIT #: [id number] ROOM/BED: [address] : 80 AGE: 38 SEX: F ATTEND: Eben Tong MD ADM AUTHOR: Eben Tong MD * ALL edits or amendments must be made on the electronic/computer document * Subjective Subjective Admission EGA (wks/days): 23.1, 25.6 today Patient reports: Patient reports: Yes no complaints, Yes normal movement, No abdominal pain, No vaginal bleeding, No leaking fluid, No contractions Objective Nursing Documentation Review Nursing data: The data set between the solid lines has been imported from nursing documentation. Any exceptions have been noted below under Provider comments. ROM date: ROM time: Labor onset date: Labor onset time: EGA at admit (weeks): Provider comments on imported nursing data: [] Membranes: Intact Cervical/ exam: Dilatation (cm): 0 - closed Effacement (%): 70 Est wt (gms): 683 station: - 3 Uterine activity: Monitor: toco Frequency (description): none Procedures: non stress test HEENT: normocephalic w/o injury Lungs: unlabored breathing Neuro: Exam: alert, oriented x3 Abdomen: gravid, soft, no abnormal tenderness, no guarding, no rebound tenderness Uterus: soft, non-tender Lower extremities: Edema: none Calf tenderness: negative Baby A: Baby A baseline: 140 bpm Baby A variability: moderate 6-25 bpm Baby A accelerations: 10 X 10 Baby A decelerations: none Baby A FHR category: category 1 Baby A notes: AGA Diagnosis, Assessment Plan Diagnosis, Assessment Plan Assessment: 25.6 wks, hx of PTB, 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 elevated 1 hr GTT, 3h GTT WNL. cont bedrest, in house obs. s/p steroids, s/p Mag. Kylee consult done. Denita q . Anemia - PO FeSO4 daily Plan: continue current managmnt at 1220 RPT #:[id number] END OF REPORT [facility] 2019-06-12 07:59:00 [facility] ([facility]) OB Antepartum Prog Note REPORT#:[id number] REPORT STATUS: Signed DATE:06/12/19 TIME: 0759 PATIENT: GRADY EDWARD UNIT #: [id number] ROOM/BED: [address] : 80 AGE: 38 SEX: F ATTEND: Eben Tong MD ADM AUTHOR: Eben Tong MD * ALL edits or amendments must be made on the electronic/computer document * Subjective Subjective Admission EGA (wks/days): 23.1, 25.5 today Patient reports: Patient reports: Yes no complaints, Yes normal movement, No abdominal pain, No vaginal bleeding, No leaking fluid, No contractions Objective Nursing Documentation Review Nursing data: The data set between the solid lines has been imported from nursing documentation. Any exceptions have been noted below under Provider comments. ROM date: ROM time: Labor onset date: Labor onset time: EGA at admit (weeks): Provider comments on imported nursing data: [] VS: Last Documented: Result Date Time B/P Mean 72.0 06/10 2026 B/P 98/59 06/10 202 Pulse 86 06/10 202 Pulse Ox 98 06/10 0853 Temp 97.8 06/08 0921 Resp 18 06/07 0917 Vital Signs Date Temp Pulse Resp B/P B/P Mean Pulse Ox FiO2 06/10 86-100 98-104/58-59 72.0-76.0 98 Patient Weight Weight (lb): 166 Weight (oz): Weight (kg): 75.296 Membranes: Intact Cervical/ exam: Dilatation (cm): 0 - closed Effacement (%): 70 Est wt (gms): 683 station: - 3 Uterine activity: Monitor: toco Frequency (description): none Procedures: non stress test HEENT: normocephalic w/o injury Lungs: unlabored breathing Neuro: Exam: alert, oriented x3 Abdomen: gravid, soft, no abnormal tenderness, no guarding, no rebound tenderness Uterus: soft, non-tender Lower extremities: Edema: none Calf tenderness: negative Baby A: Baby A baseline: 140 bpm Baby A variability: moderate 6-25 bpm Baby A accelerations: 10 X 10 Baby A decelerations: none Baby A FHR category: category 1 Baby A notes: AGA Diagnosis, Assessment Plan Diagnosis, Assessment Plan Assessment: 25.5 wks, hx of PTB, 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 elevated 1 hr GTT, 3h GTT WNL. cont bedrest, in house obs. s/p steroids, s/p Mag. Kylee consult done. [place] q . Anemia - PO FeSO4 daily Plan: continue current managmnt at 0800 RPT #:[id number] END OF REPORT [facility] 2019-06-11 12:47:00 [facility] ([facility]) OB Antepartum Prog Note REPORT#:[id number] REPORT STATUS: Signed DATE:06/11/19 TIME: 1247 PATIENT: GRADY EDWARD UNIT #: [id number] ROOM/BED: [address] : 80 AGE: 38 SEX: F ATTEND: Eben Tong MD ADM AUTHOR: Cleo Younger MD * ALL edits or amendments must be made on the electronic/computer document * Subjective Subjective Admission EGA (wks/days): 23.1, 25.4 today Patient reports: Patient reports: Yes normal movement, No no complaints, No abdominal pain, No vaginal bleeding, No leaking fluid, No contractions, No fever Objective Nursing Documentation Review Nursing data: The data set between the solid lines has been imported from nursing documentation. Any exceptions have been noted below under Provider comments. ROM date: ROM time: Labor onset date: Labor onset time: EGA at admit (weeks): Provider comments on imported nursing data: [] VS: Last Documented: Result Date Time B/P Mean 76.0 06/10 0854 B/P 104/58 06/10 0854 Pulse 97 06/10 0854 Pulse Ox 98 06/10 0853 Temp 97.8 06/08 0921 Resp 18 06/07 0917 Vital Signs Date Temp Pulse Resp B/P B/P Mean Pulse Ox FiO2 06/09-06/10 97-100 104-108/56-58 76.0 98 Patient Weight Weight (lb): 166 Weight (oz): Weight (kg): 75.296 Membranes: Intact Cervical/ exam: Dilatation (cm): 0 - closed Effacement (%): 70 Est wt (gms): 683 station: - 3 Uterine activity: Monitor: toco Frequency (description): none Procedures: non stress test HEENT: normocephalic w/o injury Lungs: unlabored breathing Neuro: Exam: alert, oriented x3 Abdomen: gravid, soft, no abnormal tenderness, no guarding, no rebound tenderness Uterus: soft, non-tender Lower extremities: Edema: none Calf tenderness: negative Baby A: Baby A baseline: 140 bpm Baby A variability: moderate 6-25 bpm Baby A accelerations: 10 X 10 Baby A decelerations: none Baby A FHR category: category 1 Baby A notes: AGA Results: labs reviewed, vital signs stable Diagnosis, Assessment Plan Diagnosis, Assessment Plan Assessment: 25.4 wks, hx of PTB, 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 elevated 1 hr GTT, 3h GTT WNL. cont bedrest, in house obs. s/p steroids, s/p Mag. Kylee consult done. [place] q . Rash from [place] on arm - improving, cont hydrocortisone cream. Anemia - PO FeSO4 daily Plan: continue current managmnt Plan discussed with: patient at 1250 RPT #:[id number] [facility] OF [facility] 2019-06-10 13:26:00 [facility] ([facility]) OB Antepartum Prog Note REPORT#:[id number] REPORT STATUS: Signed DATE:06/10/19 TIME: 1326 PATIENT: GRADY EDWARD UNIT #: [id number] ROOM/BED: [address] : 80 AGE: 38 SEX: F ATTEND: Eben Tong MD ADM AUTHOR: Kamilla Esquivel MD * ALL edits or amendments must be made on the electronic/computer document * Subjective Subjective Admission EGA (wks/days): 23.1, 25.3 today Patient reports: Patient reports: Yes normal movement, No no complaints, No vaginal bleeding, No leaking fluid, No contractions Objective Nursing Documentation Review Nursing data: The data set between the solid lines has been imported from nursing documentation. Any exceptions have been noted below under Provider comments. ROM date: ROM time: Labor onset date: Labor onset time: EGA at admit (weeks): Provider comments on imported nursing data: [] VS: Last Documented: Result Date Time B/P Mean 72.0 06/09 0832 B/P 100/55 06/09 0832 Pulse 92 06/09 0832 Pulse Ox 99 06/08 2000 Temp 97.8 06/08 0921 Resp 18 06/07 09 Vital Signs Date Temp Pulse Resp B/P B/P Mean Pulse Ox FiO2 06/08-06/09 92-96 100-104/55-61 72.0-76.0 99 Patient Weight Weight (lb): 166 Weight (oz): Weight (kg): 75.296 Membranes: Intact Uterine activity: Monitor: toco Frequency (description): none Neuro: Exam: alert, oriented x3 Abdomen: gravid, soft, no abnormal tenderness, no guarding, no rebound tenderness Baby A: Baby A baseline: 140 bpm Baby A variability: moderate 6-25 bpm Baby A accelerations: 10 X 10 Baby A decelerations: none Baby A FHR category: category 1 Baby A notes: AGA Results: no new labs, labs reviewed, vital signs stable Diagnosis, Assessment Plan Diagnosis, Assessment Plan Assessment: 25.3 wks, hx of PTB, 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 elevated 1 hr GTT, nl 3 hr. cont bedrest, in house obs. s/p steroids, s/p Mag. Kylee consult done. [place] q . Rash from [place] on arm - improving, cont hydrocortisone cream. Anemia - PO FeSO4 daily Plan: continue current managmnt Plan discussed with: patient at 1327 RPT #:[id number] END OF REPORT [facility] 2019-06-09 08:01:00 [facility] ([facility]) OB Antepartum Prog Note REPORT#:[id number] REPORT STATUS: Signed DATE:06/09/19 TIME: 800 PATIENT: GRADY EDWARD UNIT #: [id number] ROOM/BED: [address] : 80 AGE: 38 SEX: F ATTEND: Eben Tong MD ADM AUTHOR: Eben Tong MD * ALL edits or amendments must be made on the electronic/computer document * Subjective Subjective Admission EGA (wks/days): 23.1, 25.2 today Patient reports: Patient reports: Yes no complaints, Yes normal movement, No abdominal pain, No vaginal bleeding, No leaking fluid, No contractions Objective Nursing Documentation Review Nursing data: The data set between the solid lines has been imported from nursing documentation. Any exceptions have been noted below under Provider comments. ROM date: ROM time: Labor onset date: Labor onset time: EGA at admit (weeks): Provider comments on imported nursing data: [] Membranes: Intact Cervical/ exam: Dilatation (cm): 0 - closed Effacement (%): 70 Est wt (gms): 683 station: - 3 Uterine activity: Monitor: toco Frequency (description): none HEENT: normocephalic w/o injury Lungs: unlabored breathing Neuro: Exam: alert, oriented x3 Abdomen: gravid, soft, no abnormal tenderness, no guarding, no rebound tenderness Uterus: soft, non-tender Lower extremities: Edema: none Calf tenderness: negative Baby A: Baby A baseline: 140 bpm Baby A variability: moderate 6-25 bpm Baby A accelerations: 10 X 10 Baby A decelerations: none Baby A FHR category: category 1 Baby A notes: AGA Findings/data: Laboratory Tests: 04/16 04/16 04/16 04/16 04/16 1244 1134 1030 0813 0813 Chemistry Fasting Glucose (65 - 110 mg/dL) 90 Glucose 2 Hour (70 - 140 mg/dL) 154 H Glucose 3 Hour (65 - 110 mg/dL) 123 H Complete Glucose 1 Hr Postprand (100 - 200 MG/DL) 176 Diagnosis, Assessment Plan Diagnosis, Assessment Plan Assessment: 25.2 wks, hx of PTB, 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 elevated 1 hr GTT, nl 3 hr. cont bedrest, in house obs. s/p steroids, s/p Mag. Kylee consult done. [place] q . Rash from [place] on arm - improving, cont hydrocortisone cream. Anemia - PO FeSO4 daily Plan: continue current managmnt at 1207 RPT #:[id number] END OF REPORT [facility] 2019-06-08 07:31:00 [facility] ([facility]) OB Antepartum Prog Note REPORT#:[id number] REPORT STATUS: Signed DATE:06/08/19 TIME: 730 PATIENT: GRADY EDWARD UNIT #: [id number] ROOM/BED: [address] : 80 AGE: 38 SEX: F ATTEND: Eben Tong MD ADM AUTHOR: Eben Tong MD * ALL edits or amendments must be made on the electronic/computer document * Subjective Subjective Admission EGA (wks/days): 23.1, 25.1 today Patient reports: Patient reports: Yes no complaints, Yes normal movement, No abdominal pain, No vaginal bleeding, No leaking fluid, No contractions Objective Nursing Documentation Review Nursing data: The data set between the solid lines has been imported from nursing documentation. Any exceptions have been noted below under Provider comments. ROM date: ROM time: Labor onset date: Labor onset time: EGA at admit (weeks): Provider comments on imported nursing data: [] VS: Last Documented: Result Date Time B/P Mean 76.0 06/06 2250 Pulse Ox 98 06/06 2250 B/P 103/60 06/06 2250 Pulse 91 06/06 2250 Temp 98.5 06/06 0850 Resp 17 06/06 0850 Vital Signs Date Temp Pulse Resp B/P B/P Mean Pulse Ox FiO2 06/06 98.5 91-97 17 103-112/59-60 76.0-79.0 98-100 Patient Weight Weight (lb): 166 Weight (oz): Weight (kg): 75.296 Membranes: Intact Cervical/ exam: Dilatation (cm): 0 - closed Effacement (%): 70 Est wt (gms): 683 station: - 3 Uterine activity: Monitor: toco Frequency (description): none HEENT: normocephalic w/o injury Lungs: unlabored breathing Neuro: Exam: alert, oriented x3 Abdomen: gravid, soft, no abnormal tenderness, no guarding, no rebound tenderness Uterus: soft, non-tender Lower extremities: Edema: none Calf tenderness: negative Baby A: Baby A baseline: 140 bpm Baby A variability: moderate 6-25 bpm Baby A accelerations: 10 X 10 Baby A decelerations: none Baby A FHR category: category 1 Baby A notes: AGA Diagnosis, Assessment Plan Diagnosis, Assessment Plan Assessment: 25.1 wks, hx of PTB, 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 elevated 1 hr GTT, needs 3 hr. cont bedrest, in house obs. s/p steroids, s/p Mag. Kylee consult done. Den[place] q . Rash from [place] on arm - improving, cont hydrocortisone cream. Anemia - PO FeSO4 daily Plan: continue current managmnt at 0733 RPT #:[id number] END OF REPORT [facility] 2019-06-07 14:46:00 [facility] ([facility]) OB Antepartum Prog Note REPORT#:[id number] REPORT STATUS: Signed DATE:06/07/19 TIME: 1446 PATIENT: GRADY EDWARD UNIT #: [id number] ROOM/BED: 3008-A : 80 AGE: 38 SEX: F ATTEND: Eben Tong MD ADM AUTHOR: Eben Tong MD * ALL edits or amendments must be made on the electronic/computer document * Subjective Subjective Admission EGA (wks/days): 23.1, 25.0 today Patient reports: Patient reports: Yes no complaints, Yes normal movement, No abdominal pain, No vaginal bleeding, No leaking fluid, No contractions Objective Membranes: Intact Cervical/ exam: Dilatation (cm): 0 - closed Effacement (%): 70 Est wt (gms): 683 station: - 3 Uterine activity: Monitor: toco Frequency (description): none HEENT: normocephalic w/o injury Lungs: unlabored breathing Neuro: Exam: alert, oriented x3 Abdomen: gravid, soft, no abnormal tenderness, no guarding, no rebound tenderness Uterus: soft, non-tender Lower extremities: Edema: none Calf tenderness: negative Baby A: Baby A baseline: 140 bpm Baby A variability: moderate 6-25 bpm Baby A accelerations: 10 X 10 Baby A decelerations: none Baby A FHR category: category 1 Baby A notes: AGA Diagnosis, Assessment Plan Diagnosis, Assessment Plan Assessment: 25.0 wks, hx of PTB, 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 cont bedrest, in house obs. s/p steroids, s/p Mag. Kylee consult done. [place] q . Rash from [place] on arm - improving, cont hydrocortisone cream. Anemia - PO FeSO4 daily 1 hr GTT today Plan: continue current managmnt at 1447 RPT #:[id number] END OF REPORT [facility] 2019-06-06 07:14:00 [facility] ([facility]) OB Antepartum Prog Note REPORT#:[id number] REPORT STATUS: Signed DATE:06/06/19 TIME: 713 PATIENT: GRADY EDWARD UNIT #: [id number] ROOM/BED: [address] : 80 AGE: 38 SEX: F ATTEND: Eben Tong MD ADM AUTHOR: Eben Tong MD * ALL edits or amendments must be made on the electronic/computer document * Subjective Subjective Admission EGA (wks/days): 23.1, 24.6 today Patient reports: Patient reports: Yes no complaints, Yes normal movement, No abdominal pain, No vaginal bleeding, No leaking fluid, No contractions Objective Nursing Documentation Review Nursing data: The data set between the solid lines has been imported from nursing documentation. Any exceptions have been noted below under Provider comments. ROM date: ROM time: Labor onset date: Labor onset time: EGA at admit (weeks): Provider comments on imported nursing data: [] VS: Last Documented: Result Date Time B/P Mean 77.0 06/04 2102 B/P 105/62 06/04 210 Pulse 80 06/04 210 Pulse Ox 98 06/02 2009 Temp 98.3 06/02 0832 Resp 16 06/02 0832 Vital Signs Date Temp Pulse Resp B/P B/P Mean Pulse Ox FiO2 06/04 80-97 97-105/58-62 70.0-77.0 Patient Weight Weight (lb): 166 Weight (oz): Weight (kg): 75.296 Membranes: Intact Cervical/ exam: Dilatation (cm): 0 - closed Effacement (%): 70 Est wt (gms): 683 station: - 3 Uterine activity: Monitor: toco Frequency (description): none HEENT: normocephalic w/o injury Lungs: unlabored breathing Neuro: Exam: alert, oriented x3 Abdomen: gravid, soft, no abnormal tenderness, no guarding, no rebound tenderness Uterus: soft, non-tender Lower extremities: Edema: none Calf tenderness: negative Baby A: Baby A baseline: 140 bpm Baby A variability: moderate 6-25 bpm Baby A accelerations: 10 X 10 Baby A decelerations: none Baby A FHR category: category 1 Baby A notes: AGA Diagnosis, Assessment Plan Diagnosis, Assessment Plan Assessment: 24.6 wks, hx of PTB, 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 cont bedrest, in house obs. s/p steroids, s/p Mag. Kylee consult done. [place] q . Rash from [place] on arm - improving, cont hydrocortisone cream. Anemia - PO FeSO4 daily 1 hr GTT today Plan: continue current managmnt at 0715 RPT #:[id number] END OF REPORT [facility] 2019-06-05 18:29:00 [facility] ([facility]) OB Antepartum Prog Note REPORT#:[id number] REPORT STATUS: Signed DATE:06/05/19 TIME: 1828 PATIENT: GRADY EDWARD UNIT #: [id number] [address] AGE: 38 SEX: F ATTEND: Eben Tong MD ADM AUTHOR: Eben Tong MD * ALL edits or amendments must be made on the electronic/computer document * Subjective Subjective Admission EGA (wks/days): 23.1, 24.4 today Patient reports: Patient reports: Yes no complaints, Yes normal movement, No abdominal pain, No vaginal bleeding, No leaking fluid, No contractions Objective Nursing Documentation Review Nursing data: The data set between the solid lines has been imported from nursing documentation. Any exceptions have been noted below under Provider comments. ROM date: ROM time: Labor onset date: Labor onset time: EGA at admit (weeks): Provider comments on imported nursing data: [] VS: Last Documented: Result Date Time B/P Mean 70.0 06/04 0848 B/P 97/58 06/05 847 Pulse 97 06/05 847 Pulse Ox 98 06/02 2009 Temp 98.3 06/02 08 Resp 16 06/03 831 Vital Signs Date Temp Pulse Resp B/P B/P Mean Pulse Ox FiO2 06/03-06/04 90-97 97-113/58 70.0-78.0 Patient Weight Weight (lb): 166 Weight (oz): Weight (kg): 75.296 Membranes: Intact Uterine activity: Monitor: toco Frequency (description): none HEENT: normocephalic w/o injury Lungs: unlabored breathing Neuro: Exam: alert, oriented x3 Abdomen: gravid, soft, no abnormal tenderness, no guarding, no rebound tenderness Uterus: soft, non-tender Lower extremities: Edema: none Calf tenderness: negative Baby A: Baby A baseline: 140 bpm Baby A variability: moderate 6-25 bpm Baby A accelerations: 10 X 10 Baby A decelerations: none Baby A FHR category: category 1 Baby A notes: AGA Diagnosis, Assessment Plan Diagnosis, Assessment Plan Assessment: 24.5 wks, hx of PTB, 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 cont bedrest, in house obs. s/p steroids, s/p Mag. Kylee consult done. [place] q . Rash from [place] on arm - improving, cont hydrocortisone cream. Anemia - PO FeSO4 daily Plan: continue current managmnt at 1832 RPT #:[id number] END OF REPORT [facility] 2019-06-04 13:00:00 [facility]) OB Antepartum Prog Note REPORT#:[id number] REPORT STATUS: Signed DATE:06/04/19 TIME: 1300 PATIENT: GRADY EDWARD UNIT #: [id number] ROOM/BED: 3008-A : 80 AGE: 38 SEX: F ATTEND: Eben Tong MD ADM AUTHOR: Cleo Younger MD * ALL edits or amendments must be made on the electronic/computer document * Subjective Subjective Admission EGA (wks/days): 23.1, 24.4 today Patient reports: Patient reports: Yes normal movement, No no complaints, No abdominal pain, No vaginal bleeding, No leaking fluid, No contractions, No fever Objective Nursing Documentation Review Nursing data: The data set between the solid lines has been imported from nursing documentation. Any exceptions have been noted below under Provider comments. ROM date: ROM time: Labor onset date: Labor onset time: EGA at admit (weeks): Provider comments on imported nursing data: [] VS: Last Documented: Result Date Time B/P Mean 77.0 06/03 0924 B/P 111/55 06/03 0924 Pulse 97 06/03 0924 Pulse Ox 98 06/02 2009 Temp 98.3 06/02 0832 Resp 16 06/02 0832 Vital Signs Date Temp Pulse Resp B/P B/P Mean Pulse Ox FiO2 06/02-06/03 90-97 109-111/55-62 77.0-80.0 98 Patient Weight Weight (lb): 166 Weight (oz): Weight (kg): 75.296 Membranes: Intact Cervical/ exam: Dilatation (cm): 0 - closed Effacement (%): 70 Est wt (gms): 683 station: - 3 Uterine activity: Monitor: toco Frequency (description): none HEENT: normocephalic w/o injury Lungs: unlabored breathing Neuro: Exam: alert, oriented x3 Abdomen: gravid, soft, no abnormal tenderness, no guarding, no rebound tenderness Uterus: soft, non-tender Lower extremities: Edema: none Calf tenderness: negative Baby A: Baby A baseline: 140 bpm Baby A variability: moderate 6-25 bpm Baby A accelerations: 10 X 10 Baby A decelerations: none Baby A FHR category: category 1 Baby A notes: AGA Results: labs reviewed, vital signs stable Diagnosis, Assessment Plan Diagnosis, Assessment Plan Assessment: 24.4 wks, hx of PTB, 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 cont bedrest, in house obs. s/p steroids, s/p Mag. Kylee consult done. [place] q . Rash from [place] on arm - cont hydrocortisone cream. Anemia - PO FeSO4 daily Plan: continue current managmnt Plan discussed with: patient at 1308 RPT #:[id number] END OF REPORT [facility] 2019-06-03 12:11:00 [facility] ([facility]) OB Antepartum Prog Note REPORT#:[id number] REPORT STATUS: Signed DATE:06/03/19 TIME: 1211 PATIENT: GRADY EDWARD UNIT #: [id number] ROOM/BED: [address] : 80 AGE: 38 SEX: F ATTEND: Eben Tong MD ADM AUTHOR: Rachele Shipman MD * ALL edits or amendments must be made on the electronic/computer document * Subjective Subjective Admission EGA (wks/days): 23.1, 24.3 today Patient reports: Patient reports: Yes normal movement, No abdominal pain, No vaginal bleeding, No leaking fluid, No contractions Comments: rash on arm where denita was injected Objective Nursing Documentation Review Nursing data: The data set between the solid lines has been imported from nursing documentation. Any exceptions have been noted below under Provider comments. ROM date: ROM time: Labor onset date: Labor onset time: EGA at admit (weeks): Provider comments on imported nursing data: [] VS: Last Documented: Result Date Time B/P Mean 67.0 06/02 0832 B/P 95/54 06/02 0832 Temp 98.3 06/02 0832 Pulse 96 06/02 0832 Resp 16 06/02 0832 Pulse Ox 99 06/01 2114 Vital Signs Date Temp Pulse Resp B/P B/P Mean Pulse Ox FiO2 /-06/02 98.3 80-96 16 95-100/54-57 67.0-73.0 99 Patient Weight Weight (lb): 166 Weight (oz): Weight (kg): 75.296 Membranes: Intact Cervical/ exam: Est wt (gms): 683 Uterine activity: Monitor: toco Frequency (description): none HEENT: normocephalic w/o injury Neuro: Exam: alert, oriented x3 Abdomen: gravid, soft, no abnormal tenderness Lower extremities: Edema: none Baby A: Baby A baseline: 140 bpm Baby A variability: moderate 6-25 bpm Baby A accelerations: 10 X 10 Baby A decelerations: none Baby A FHR category: category 1 Baby A notes: reassuring for gestation age. 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 cont bedrest, in house obs. s/p steroids, s/ p Mag. Kylee consult done. Denita q , rash from denita, anemia Plan: continue current managmnt, fe hydrocortisone cream prn Plan discussed with: patient at 1213 RPT #:[id number] [facility] 2019-06-02 11:36:00 [facility] ([facility]) OB Antepartum Prog Note REPORT#:[id number] REPORT STATUS: Signed DATE:06/02/19 TIME: 1136 PATIENT: GRADY EDWARD UNIT #: [id number] ROOM/BED: [address] : 80 AGE: 38 SEX: F ATTEND: Eben Tong MD ADM AUTHOR: Marco A Diaz MD * ALL edits or amendments must be made on the electronic/computer document * Subjective Subjective Admission EGA (wks/days): 23.1, 24.2 today Patient reports: Patient reports: Yes normal movement, No abdominal pain, No vaginal bleeding, No leaking fluid, No contractions Objective Nursing Documentation Review Nursing data: The data set between the solid lines has been imported from nursing documentation. Any exceptions have been noted below under Provider comments. ROM date: ROM time: Labor onset date: Labor onset time: EGA at admit (weeks): Provider comments on imported nursing data: [] VS: Last Documented: Result Date Time B/P Mean 74.0 06/01 0829 B/P 103/59 06/01 928 Pulse 93 06/01 928 Pulse Ox 98 05/31 2019 Resp 05/30 Temp 36.8 05/30 922 Vital Signs Date Temp Pulse Resp B/P B/P Mean Pulse Ox FiO2 05/31-06/01 93 103-108/59-69 74.0-83.0 Patient Weight Weight (lb): 166 Weight (oz): Weight (kg): 75.296 Membranes: Intact Cervical/ exam: Dilatation (cm): 0 - closed Effacement (%): 70 Est wt (gms): 683 station: - 3 Uterine activity: Monitor: toco Frequency (description): none HEENT: normocephalic w/o injury Neuro: Exam: alert, oriented x3 Abdomen: gravid, soft, no abnormal tenderness Lower extremities: Edema: none Baby A: Baby A baseline: 140 bpm Baby A variability: moderate 6-25 bpm Baby A accelerations: 10 X 10 Baby A decelerations: none Baby A FHR category: category 1 Baby A notes: reassuring for gestation age. 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 cont bedrest, in house obs. s/p steroids, s/ p Mag. Kylee consult done. Denita q Plan: continue current managmnt at 1137 RPT #:[id number] END OF REPORT [facility] 2019-06-01 08:41:00 [facility] ([facility]) OB Antepartum Prog Note REPORT#:[id number] REPORT STATUS: Signed DATE:06/01/19 TIME: 08 PATIENT: GRADY EDWARD UNIT #: [id number] ROOM/BED: 3008-A : 80 AGE: 38 SEX: F ATTEND: Eben Tong MD ADM AUTHOR: Eben Tong MD * ALL edits or amendments must be made on the electronic/computer document * Subjective Subjective Admission EGA (wks/days): 23.1 Patient reports: Patient reports: Yes no complaints, Yes normal movement, No abdominal pain, No vaginal bleeding, No leaking fluid, No contractions Objective Nursing Documentation Review Nursing data: The data set between the solid lines has been imported from nursing documentation. Any exceptions have been noted below under Provider comments. ROM date: ROM time: Labor onset date: Labor onset time: EGA at admit (weeks): Provider comments on imported nursing data: [] VS: Last Documented: Result Date Time B/P Mean 82.0 05/31 2019 B/P 113/61 05/31 2019 Pulse 85 05/31 2019 Pulse Ox 98 05/30 2020 Resp 18 05/31 2019 Temp 98.3 05/30 0923 Vital Signs Date Temp Pulse Resp B/P B/P Mean Pulse Ox FiO2 05/30 98.3 85-105 16-18 102-113/58-61 72.0-82.0 91-98 Patient Weight Weight (lb): 166 Weight (oz): Weight (kg): 75.296 Membranes: Intact Cervical/ exam: Dilatation (cm): 0 - closed Effacement (%): 70 Est wt (gms): 683 station: - 3 Uterine activity: Monitor: toco Frequency (description): none HEENT: normocephalic w/o injury Neuro: Exam: alert, oriented x3 Abdomen: gravid, soft, no abnormal tenderness Lower extremities: Edema: none Baby A: Baby A baseline: 140 bpm Baby A variability: moderate 6-25 bpm Baby A accelerations: 10 X 10 Baby A decelerations: none Baby A FHR category: category 1 Baby A notes: reassuring for gestation age. Diagnosis, Assessment Plan Diagnosis, Assessment Plan Assessment: 24.1 wks, hx of PTB, incompetent cervix with 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 cont bedrest, in house obs. s/p steroids, s/ p Mag. Kylee consult done. Denita q Plan: continue current managmnt at 0842 RPT #:[id number] END OF REPORT [facility] 2019-06-01 08:38:00 [facility] ([facility]) OB-CVIR TECH Progress Note REPORT#:[id number] REPORT STATUS: Signed DATE:06/01/19 TIME: 837 PATIENT: GRADY EDWARD UNIT #: [id number] ROOM/BED: [address] : 80 AGE: 38 SEX: F ATTEND: Eben Tong MD ADM AUTHOR: Eben Tong MD * ALL edits or amendments must be made on the electronic/computer document * Subjective Patient reports: Comments: reports 1 episode of low volume emesis yesterday but not really eating, no appetite, doesn't like smell of food. no pain, no VB. c/o constipation. Objective General VS/I O: Last Documented: Result Date Time B/P Mean 82.0 05/31 2019 B/P 113/61 05/31 2019 Pulse 85 05/31 2019 Pulse Ox 98 05/31 2019 Resp 18 05/31 2019 Temp 98.3 05/30 922 Vital Signs Date Temp Pulse Resp B/P B/P Mean Pulse Ox FiO2 05/30 98.3 85-105 16-18 102-113/58-61 72.0-82.0 91-98 Patient Weight Weight (lb): 166 Weight (oz): Weight (kg): 75.296 Current Medications Medications: Active Meds + DC'd Last 24 Hrs Calcium Carbonate 500 MG Q6H PRN PRN PO Zolpidem Tartrate 5 MG BEDTIME PRN PRN PO Multivi/Iron Carb/Fe Sulf/FA/Prenat 1 EA DAILY PO Docusate Sodium 100 MG BID PO Ondansetron Base 4 MG Q8H PRN PRN PO Acetaminophen 650 MG Q3H PRN PRN PO Al Hydrox/Mg Hydrox/Simethicone 30 ML Q4H PRN PRN PO Magnesium Hydroxide 30 ML Q6H PRN PRN PO Polyethylene Glycol 17 GM DAILY PRN PRN PO Lactated Ringer's 1,000 ML ASDIR IV Undefined Medication 500 ML ASDIR IV (CKD) Physical Exam General Appearance: alert, awake, no acute distress HEENT: normocephalic Abdomen: non-tender, soft, no distention, no guarding, no mass/organomegaly, no rebound Extremities: no edema Neuro/PHARMACY COORDINATOR: alert, oriented x 3 Diagnosis, Assessment Plan Free Text A P: 6-7 weeks, hyperemesis. cont IV zofran, not covered for home zofran pump. start diclegis/reglan/colace. at 0840 RPT #:[id number] END OF REPORT [facility] 2019-06-01 08:38:00 [facility] ([facility]) OB-CVIR TECH Progress Note REPORT#:[id number] REPORT STATUS: Signed DATE:06/01/19 TIME: 837 PATIENT: GRADY EDWARD UNIT #: [id number] ROOM/BED: [address] : 80 AGE: 38 SEX: F ATTEND: Eben Tong MD ADM AUTHOR: Eben Tong MD * ALL edits or amendments must be made on the electronic/computer document * See Addendum Subjective Patient reports: Comments: reports 1 episode of low volume emesis yesterday but not really eating, no appetite, doesn't like smell of food. no pain, no VB. c/o constipation. Objective General VS/I O: Last Documented: Result Date Time B/P Mean 82.0 05/31 2019 B/P 113/61 05/31 2019 Pulse 85 05/31 2019 Pulse Ox 98 05/31 2019 Resp 18 05/31 2019 Temp 98.3 05/30 922 Vital Signs Date Temp Pulse Resp B/P B/P Mean Pulse Ox FiO2 05/30 98.3 85-105 16-18 102-113/58-61 72.0-82.0 91-98 Patient Weight Weight (lb): 166 Weight (oz): Weight (kg): 75.296 Current Medications Medications: Active Meds + DC'd Last 24 Hrs Calcium Carbonate 500 MG Q6H PRN PRN PO Zolpidem Tartrate 5 MG BEDTIME PRN PRN PO Multivi/Iron Carb/Fe Sulf/FA/Prenat 1 EA DAILY PO Docusate Sodium 100 MG BID PO Ondansetron Base 4 MG Q8H PRN PRN PO Acetaminophen 650 MG Q3H PRN PRN PO Al Hydrox/Mg Hydrox/Simethicone 30 ML Q4H PRN PRN PO Magnesium Hydroxide 30 ML Q6H PRN PRN PO Polyethylene Glycol 17 GM DAILY PRN PRN PO Lactated Ringer's 1,000 ML ASDIR IV Undefined Medication 500 ML ASDIR IV (CKD) Physical Exam General Appearance: alert, awake, no acute distress HEENT: normocephalic Abdomen: non-tender, soft, no distention, no guarding, no mass/organomegaly, no rebound Extremities: no edema Neuro/PHARMACY COORDINATOR: alert, oriented x 3 Diagnosis, Assessment Plan Free Text A P: 6-7 weeks, hyperemesis. cont IV zofran, not covered for home zofran pump. start diclegis/reglan/colace. at 0840 Addendum 1: 06/01/19 0841 by Eben Tong MD Disregard, wrong pt chart at 0841 RPT #:[id number] END OF REPORT [facility] 2019-05-31 10:49:00 [facility] ([facility]) OB Antepartum Prog Note REPORT#:[id number] REPORT STATUS: Signed DATE:05/31/19 TIME: 1049 PATIENT: GRADY EDWARD UNIT #: [id number] [address] AGE: 38 SEX: F ATTEND: Eben Tnog MD ADM AUTHOR: Eben Tong MD * ALL edits or amendments must be made on the electronic/computer document * Subjective Subjective Admission EGA (wks/days): 23.1 Patient reports: Patient reports: Yes no complaints, Yes normal movement, No abdominal pain, No vaginal bleeding, No leaking fluid, No contractions Objective Nursing Documentation Review Nursing data: The data set between the solid lines has been imported from nursing documentation. Any exceptions have been noted below under Provider comments. ROM date: ROM time: Labor onset date: Labor onset time: EGA at admit (weeks): Provider comments on imported nursing data: [] VS: Last Documented: Result Date Time B/P Mean 72.0 05/30 922 Pulse Ox 98 05/30 922 B/P 102/58 05/30 922 Temp 98.3 05/30 922 Pulse 105 05/30 922 Resp 16 05/30 922 Vital Signs Date Temp Pulse Resp B/P B/P Mean Pulse Ox FiO2 05/29-05/30 98.1-98.3 83-105 16-18 102-106/58-64 72.0-77.0 98-100 Patient Weight Weight (lb): 166 Weight (oz): Weight (kg): 75.296 Membranes: Intact Cervical/ exam: Dilatation (cm): 0 - closed Effacement (%): 70 Est wt (gms): 683 station: - 3 Uterine activity: Monitor: toco Frequency (description): none HEENT: normocephalic w/o injury Neuro: Exam: alert, oriented x3 Abdomen: gravid, soft, no abnormal tenderness Lower extremities: Edema: none Baby A: Baby A baseline: 140 bpm Baby A variability: moderate 6-25 bpm Baby A accelerations: 10 X 10 Baby A decelerations: none Baby A FHR category: category 1 Baby A notes: reassuring for gestation age. 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 cont bedrest, in house obs. s/p steroids, s/ p Mag. Kylee consult done. Denita q Plan: continue current managmnt at 1050 RPT #:[id number] END OF REPORT [facility] 2019-05-30 08:01:00 [facility] ([facility]) OB Antepartum Prog Note REPORT#:[id number] REPORT STATUS: Signed DATE:05/30/19 TIME: 800 PATIENT: GRADY EDWARD UNIT #: [id number] ROOM/BED: 300-A : 80 AGE: 38 SEX: F ATTEND: Eben Tong MD ADM AUTHOR: Eben Tong MD * ALL edits or amendments must be made on the electronic/computer document * Subjective Subjective Admission EGA (wks/days): 23.1 Patient reports: Patient reports: Yes no complaints, Yes normal movement, No abdominal pain, No vaginal bleeding, No leaking fluid, No contractions Objective Nursing Documentation Review Nursing data: The data set between the solid lines has been imported from nursing documentation. Any exceptions have been noted below under Provider comments. ROM date: ROM time: Labor onset date: Labor onset time: EGA at admit (weeks): Provider comments on imported nursing data: [] VS: Last Documented: Result Date Time Temp 97.9 05/288 Resp 18 05/28 2037 B/P Mean 85.0 /8 B/P 116/65 05/28 2038 Pulse 98 05/28 2037 Pulse Ox 100 05/28 0835 Vital Signs Date Temp Pulse Resp B/P B/P Mean Pulse Ox FiO2 05/28 97.9-98.2 85-98 18 102-116/59-65 75.0-85.0 100 Patient Weight Weight (lb): 166 Weight (oz): Weight (kg): 75.296 Membranes: Intact Uterine activity: Monitor: toco Frequency (description): none HEENT: normocephalic w/o injury Neuro: Exam: alert, oriented x3 Abdomen: gravid, soft, no abnormal tenderness Lower extremities: Edema: none Baby A: Baby A baseline: 140 bpm Baby A variability: moderate 6-25 bpm Baby A accelerations: 10 X 10 Baby A decelerations: none Baby A FHR category: category 1 Baby A notes: reassuring for gestation age. 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 cont bedrest, in house obs. s/p steroids, s/ p Mag. Kylee consult done Plan: continue current managmnt at 0803 RPT #:[id number] END OF REPORT [facility] 2019-05-29 13:02:00 [facility] ([facility]) OB Antepartum Prog Note REPORT#:[id number] REPORT STATUS: Signed DATE:05/29/19 TIME: 1302 PATIENT: GRADY EDWARD UNIT #: [id number] ROOM/BED: 3008-A : 80 AGE: 38 SEX: F ATTEND: Eben Tong MD ADM AUTHOR: Eben Tong MD * ALL edits or amendments must be made on the electronic/computer document * Subjective Subjective Admission EGA (wks/days): 23.1 Patient reports: Patient reports: Yes no complaints, Yes normal movement, No abdominal pain, No vaginal bleeding, No leaking fluid, No contractions Objective Nursing Documentation Review Nursing data: The data set between the solid lines has been imported from nursing documentation. Any exceptions have been noted below under Provider comments. ROM date: ROM time: Labor onset date: Labor onset time: EGA at admit (weeks): Provider comments on imported nursing data: [] VS: Last Documented: Result Date Time B/P Mean 75.0 / 0835 B/P 102/59 04/ 0835 Pulse 85 / 0835 Pulse Ox 100 / 0835 Temp 98.2 / 0835 Resp 18 / 0835 Vital Signs Date Temp Pulse Resp B/P B/P Mean Pulse Ox FiO2 04/05-05/28 98.1-98.2 80-85 18 102-104/58-59 75.0 100 Patient Weight Weight (lb): 166 Weight (oz): Weight (kg): 75.296 Membranes: Intact Uterine activity: Monitor: toco Frequency (description): none HEENT: normocephalic w/o injury Neuro: Exam: alert, oriented x3 Abdomen: gravid, soft, no abnormal tenderness Baby A: Baby A baseline: 140 bpm Baby A variability: moderate 6-25 bpm Baby A accelerations: 10 X 10 Baby A decelerations: none Baby A FHR category: category 1 Baby A notes: reassuring for gestation age. 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 cont bedrest, in house obs. s/p steroids, s/ p Mag. Kylee consult done Plan: continue current managmnt at 1303 RPT #:[id number] END OF REPORT [facility] 2019-05-28 13:10:00 [facility] ([facility]) OB Antepartum Prog Note REPORT#:[id number] REPORT STATUS: Signed DATE:05/28/19 TIME: 1310 PATIENT: GRDAY EDWARD UNIT #: [id number] ROOM/BED: [address] : 80 AGE: 38 SEX: F ATTEND: Eben Tong MD ADM AUTHOR: Kamilla Esquivel MD * ALL edits or amendments must be made on the electronic/computer document * Subjective Subjective Admission EGA (wks/days): 23.1 Patient reports: Patient reports: Yes normal movement, No no complaints, No vaginal bleeding, No leaking fluid, No contractions Objective Nursing Documentation Review Nursing data: The data set between the solid lines has been imported from nursing documentation. Any exceptions have been noted below under Provider comments. ROM date: ROM time: Labor onset date: Labor onset time: EGA at admit (weeks): Provider comments on imported nursing data: [] VS: Last Documented: Result Date Time B/P Mean 71.0 04/ 0806 Pulse Ox 99 / 0806 B/P 98/55 04/ 0806 Temp 98.5 04/ 0806 Pulse 82 04/ 0806 Resp 18 / 0806 Vital Signs Date Temp Pulse Resp B/P B/P Mean Pulse Ox FiO2 04/04-04/05 98.5 82-83 16-18 98-102/55-58 71.0-77.0 98-99 Patient Weight Weight (lb): 166 Weight (oz): Weight (kg): 75.296 Membranes: Intact Uterine activity: Monitor: toco Frequency (description): none HEENT: normocephalic w/o injury Neuro: Exam: alert, oriented x3 Abdomen: gravid, soft, no abnormal tenderness Lower extremities: Edema: none Baby A: Baby A baseline: 140 bpm Baby A variability: moderate 6-25 bpm Baby A accelerations: 10 X 10 Baby A decelerations: none Baby A FHR category: category 1 Baby A notes: reassuring for gestation age. 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 cont bedrest, in house obs. s/p staroids, s/ p Mag. Kylee consulted Plan: continue current managmnt Plan discussed with: patient at 1312 RPT #:[id number] END OF REPORT [facility] 2019-05-27 15:04:00 [facility] ([facility]) OB Antepartum Prog Note REPORT#:[id number] REPORT STATUS: Signed DATE:05/27/19 TIME: 1504 PATIENT: GRADY EDWARD UNIT #: [id number] ROOM/BED: [address] : 80 AGE: 38 SEX: F ATTEND: Eben Tong MD ADM AUTHOR: Cristine Hastings MD * ALL edits or amendments must be made on the electronic/computer document * Subjective Subjective Admission EGA (wks/days): 23.1 Patient reports: Patient reports: No no complaints, No abdominal pain, No vaginal bleeding, No leaking fluid, No contractions Comments: good FM. no VB/LOF Objective Nursing Documentation Review Nursing data: The data set between the solid lines has been imported from nursing documentation. Any exceptions have been noted below under Provider comments. ROM date: ROM time: Labor onset date: Labor onset time: EGA at admit (weeks): Provider comments on imported nursing data: [] VS: Last Documented: Result Date Time B/P Mean 76.0 05/26 0951 B/P 107/59 05/26 0951 Pulse 90 05/26 0951 Pulse Ox 99 05/26 0950 Temp 98.5 05/25 2032 Resp 16 05/25 2032 Vital Signs Date Temp Pulse Resp B/P B/P Mean Pulse Ox FiO2 /-05/26 98.5 90-94 16 107-109/59-62 76.0-79.0 99 Patient Weight Weight (lb): 166 Weight (oz): Weight (kg): 75.296 Membranes: Intact Cervical/ exam: Dilatation (cm): 0 - closed Effacement (%): 70 Est wt (gms): 683 station: - 3 Uterine activity: Monitor: toco Frequency (description): none Neuro: Exam: alert, oriented x3 Abdomen: gravid, soft, no abnormal tenderness Baby A: Baby A baseline: 140 bpm Baby A variability: moderate 6-25 bpm Baby A accelerations: 15 X 15 Baby A decelerations: none Baby A FHR category: category 1 Diagnosis, Assessment Plan Diagnosis, Assessment Plan Assessment: 23.3 wks, hx of PTB, incompetent cervix with 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 cont bedrest, in house obs. s/p staroids, s/ p Mag. Kylee consulted Plan: continue current managmnt at 1506 RPT #:[id number] END OF REPORT [facility] 2019-05-26 08:09:00 [facility] ([facility]) OB Antepartum Prog Note REPORT#:[id number] REPORT STATUS: Signed DATE:05/26/19 TIME: 808 PATIENT: GRADY EDWARD UNIT #: [id number] ROOM/BED: [address] : 80 AGE: 38 SEX: F ATTEND: Eben Tong MD ADM AUTHOR: Eben Tong MD * ALL edits or amendments must be made on the electronic/computer document * Subjective Subjective Admission EGA (wks/days): 23.1 Patient reports: Comments: c/o poor sleep, GERD sx overnight. no ctx. feels some pressure in lower abd. good FM. no VB/LOF Objective Nursing Documentation Review Nursing data: The data set between the solid lines has been imported from nursing documentation. Any exceptions have been noted below under Provider comments. ROM date: ROM time: Labor onset date: Labor onset time: EGA at admit (weeks): Provider comments on imported nursing data: [] VS: Last Documented: Result Date Time B/P Mean 82.0 05/25 356 B/P 108/69 05/25 356 Pulse 99 05/25 356 Pulse Ox 97 05/25 0357 Resp 16 05/25 0357 Temp 98.4 05/24 2016 Vital Signs Date Temp Pulse Resp B/P B/P Mean Pulse Ox FiO2 05/24-05/25 98.4 93-117 14-16 108-126/63-71 78.0-92.0 97-100 Patient Weight Weight (lb): 166 Weight (oz): Weight (kg): 75.296 Membranes: Intact Uterine activity: Monitor: toco Frequency (description): none HEENT: normocephalic w/o injury Neuro: Exam: alert, oriented x3 Abdomen: gravid, soft, no abnormal tenderness Baby A: Baby A baseline: 140 bpm Baby A variability: moderate 6-25 bpm Baby A accelerations: 15 X 15 Baby A decelerations: none Baby A FHR category: category 1 Findings/data: Laboratory Tests: 05/24 1720 Hematology WBC (6.6 - 12.1 K/mm3) 10.6 RBC (3.45 - 5.01 M/mm3) 3.48 Hgb (10.7 - 13.9 g/dL) 9.5 L Hct (32.1 - 42.1 %) 29.4 L MCV (84.1 - 94.8 fL) 85 MCH (27 - 35 pg) 27.3 MCHC (32.2 - 34.1 gm/dL) 32.3 RDW (12.4 - 16.5 %) 13.9 Plt Count (133 - 385 K/mm3) 253 MPV (9.1 - 12.7 fl) 11.1 Neut % (Auto) (56.5 - 79.4 %) 83.7 H Lymph % (Auto) (14.3 - 34.3 %) 10.5 L Clinton % (Auto) (5.1 - 10.4 %) 4.9 L Eos % (Auto) (0.1 - 3.0 %) 0.3 Baso % (Auto) (0.1 - 1.0 %) 0.1 Neut # (Auto) (K/mm3) 8.9 Lymph # (Auto) (K/mm3) 1.1 Clinton # (Auto) (K/mm3) 0.5 Eos # (Auto) (K/mm3) 0.03 Baso # (Auto) (K/mm3) 0.0 Serology Treponema pallidum Ab (NONREACTIVE) NONREACTIVE Hep Bs Antigen (NONREACTIVE) NONREACTIVE Hepatitis C Antibody (NONREACTIVE) NONREACTIVE Hep C Ab Signal/Cutoff (<0.80) 0.20 HIV 1 2 Antibody (NONREACTIVE) NONREACTIVE Diagnosis, Assessment Plan Diagnosis, Assessment Plan Assessment: 23.2 wks, hx of PTB, incompetent cervix with 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 cont bedrest, in house obs. 2nd dose BMS today. cot mag to 24 hrs. Kylee consult. at 0811 RPT #:[id number] [facility] OF [facility] 2019-05-[facility] 17:34:00 [facility] ([facility]) OB Admission / H P REPORT#:[id number] REPORT STATUS: Signed DATE:05/25/19 TIME: 1734 PATIENT: GRADY EDWARD UNIT #: [id number] ROOM/BED: [address] : 80 AGE: 38 SEX: F ATTEND: Eben Tong MD ADM AUTHOR: Eben Tong MD * ALL edits or amendments must be made on the electronic/computer document * OB Admission H P Hx Chief complaint: short cervix HPI: 23.1 wks, hx of previable delivery in prev preg, cerclage in place, seen for f/u sono today with cvx 5mm and funnelling. good FM, no VB/LOF. felt some lower abd/back pain over weekend. history: : 4 Term: 1 : 1 Abortus: 1 Living children: 1 Previous : none Current : EDC: 09/20/19 Admission EGA (wks/days): 23.1 Conditions of : short cervix, incompetent cervix Labs: Blood type: A Rh: positive Rubella: immune Hepatitis B: negative HIV: negative STD: negative Syphilis: currently negative Procedures: cerclage Past medical history: denies PMH Past surgical history: denies PSH Social history: , no alcohol use, no tobacco use, no drug use Medications: Home Medications: SERTRALINE (ZOLOFT) 25 MG PO DAILY PNV WITH FE FUMARATE/FA () 1 TAB PO DAILY VITAMIN C/VIT D3/VIT A [id number] (TRI-VITAMIN DROPS) IBUPROFEN (MOTRIN) 600 MG PO Q6H PRN PRN MILD PAIN NOT RELIEVED BY TYL. traMADol (ULTRAM) 50 MG PO Q3H PRN PRN pain Allergies Coded Allergies: codeine (Severe, SHORTNESS OF BREATH 10/02/15) hydrocodone (Severe, SHORTNESS OF BREATH 10/02/15) Objective General VS: Patient Weight Weight (lb): Weight (oz): Weight (kg): Physical Exam HEENT: normocephalic w/o injury Neuro: Exam: alert, oriented x3 Abdomen: gravid, soft, no abnormal tenderness Cervical/ exam: Dilatation (cm): 0 - closed Effacement (%): 70 Est wt (gms): 683 station: - 3 Membranes: Membranes: Intact Diagnosis, Assessment Plan Diagnosis, Assessment Plan Free Text A P: 23.1 wks, incompetent cervix, cerclage in place, short cervix with funnelling, prev PTB. Denita given in office today. start mag/BMS. bedrest, exp mgmt. at 1199 RPT #:[id number] END OF REPORT [facility]
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
[2024-01-21] MEDS ORDERED: CYCLOBENZAPRINE 10 MG TAB ONE (22:07)
[2024-01-21] MEDS ORDERED: KETOROLAC 30 MG/ML INJ ONE (22:07)
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
== END 2024-01-21 22:13 | disposition home or self-care (01) ==
LOC: ER 21:21
DX: M54.2 Cervicalgia (principal); V59.59XA Passenger in pick-up truck or van injured in collision with other motor vehicles in traffic accident, initial encounter
CPT/HCPCS: 96372; 99284